=== PATIENT | female | born 1960 | race Caucasian/White ===

== ENCOUNTER 2020-08-14 07:56 | Outpatient (CLI) | payer OTHER, SELFPAY ==
--- NOTE | ~2020-08-14 | MM_ITS ---
EXAMINATION: MM screening rigo BI w mariana HISTORY: Screening mammogram TECHNIQUE: Craniocaudal and mediolateral oblique 3-D tomosynthesis images were obtained and synthetic 2-D images were generated. CAD analysis was submitted and interpreted. COMPARISON: No prior mammogram is available for comparison at this institution. BREAST PARENCHYMAL COMPOSITION: There are scattered areas of fibroglandular density.. FINDINGS: There is no evidence of suspicious mass, calcification, or architectural distortion to sugg est malignancy in either breast. There has been no suspicious interval change. IMPRESSION: 1. No mammographic evidence of malignancy. 2. Recommend routine screening mammography in one year. BI-RADS Category 1: Negative Reviewed, dictated and finalized at location A.
--- NOTE | ~2020-08-14 | US_ITS ---
US abdomen complete EXAMINATION: US Abdomen Complete INDICATION: Alcoholic cirrhosis PROCEDURE: Realtime High Resolution abdomen ultrasound. COMPARISON: No prior studies for comparison FINDINGS: Gallbladder within normal limits. No gallstones, pericholecystic fluid, gallbladder wall t hickening or biliary dilatation. Common bile duct measures 4.5 mm. Liver echotexture is heterogeneous with nodular liver surface, compatible with cirrhosis. Pancreas w ithin normal limits. Pancreatic tail is obscured by bowel gas. Spleen is enlarged measuring 13.7 cm . Renal echotexture is within normal limits bilaterally without hydronephrosis, contour deforming mas s or renal stone. Right kidney measures 9.1 cm. Left kidney measures 8.7 cm. Visualized aspects of the aorta and IVC are within normal limits. Portal vein is patent. No sonograph ic Monteiro's sign indicated by the technologist. IMPRESSION: 1: Cirrhosis with splenomegaly, compatible with portal hypertension. Reviewed, dictated and finalized at location B.
== END 2020-08-14 07:57 | disposition home or self-care (01) ==
LOC: CHSIMG 07:59
PROVIDERS: PCP Family Medicine; Visit Provider Family Medicine
DX: Z12.31 Encounter for screening mammogram for malignant neoplasm of breast (principal); K70.30 Alcoholic cirrhosis of liver without ascites
CPT/HCPCS: 76700; 77063; 77067

== ENCOUNTER 2020-11-27 11:16 | Outpatient (CLI) | payer OTHER, SELFPAY ==
[2020-11-28 18:11] LABS: SARS-CoV-2 RNA PCR Negative
== END 2020-11-27 11:17 | disposition home or self-care (01) ==
LOC: CHSLAB 11:18
PROVIDERS: PCP Family Medicine; Visit Provider Family Medicine
DX: Z01.818 Encounter for other preprocedural examination (principal); Z20.822 Contact with and (suspected) exposure to COVID-19
CPT/HCPCS: C9803; U0003; U0005

== ENCOUNTER 2021-01-20 15:33 | Outpatient (CLI) | payer OTHER, SELFPAY ==
[2021-01-20 16:19] LABS: Ammonia 37 umol/L (11-32); Bilirubin Direct 0.6 mg/dL (0-0.2); Bilirubin,Total 2.4 mg/dL (0.00-1.00); Uric Acid 7.2 mg/dL (2.6-6.0)
== END 2021-01-20 15:34 | disposition home or self-care (01) ==
LOC: CHSLAB 15:38
PROVIDERS: PCP Family Medicine; Visit Provider Family Medicine
DX: M79.672 Pain in left foot (principal); M79.671 Pain in right foot; K70.30 Alcoholic cirrhosis of liver without ascites; E80.6 Other disorders of bilirubin metabolism
CPT/HCPCS: 36415; 82140; 82247; 82248; 84550

== ENCOUNTER 2021-01-22 07:58 | Outpatient (CLI) | payer OTHER, SELFPAY ==
--- NOTE | ~2021-01-22 | XR_ITS ---
EXAMINATION: XR foot LT min 3V, XR foot RT min 3V DATE: 01/22/2021 08:25 INDICATION: Left foot pain 2 months post blunt trauma with heavy object falling on the first and seco nd metatarsals. 6 months of pain at the lateral right foot. TECHNIQUE: 1. Dorsoplantar, two oblique and lateral views of the left foot were obtained. 2. Dorsoplantar, two oblique and lateral views of the right foot were obtained. COMPARISON: None. FINDINGS: Alignment is normal at the bilateral feet. No fractures. Relatively symmetric minimal to mild polyart icular osteoarthritis at the bilateral first metatarsophalangeal joints and multiple bilateral tarsom etatarsal and interphalangeal joints. No erosions to suggest an inflammatory arthritis. Tiny radioden se foreign body near the level of the skin surface at the medial side of the plantar aspect of the di stal phalanx of the left great toe. Small right Achilles and plantar calcaneal spurs. Soft tissues ar e unremarkable. IMPRESSION: 1. No acute osseous abnormality at either foot. 2. Minimal to mild polyarticular osteoarthritis in the bilateral mid and forefeet. Reviewed, dictated and finalized at location A. IMPRESSION: 1. No acute osseous abnormality at either foot. 2. Minimal to mild polyarticular osteoarthritis in the bilateral mid and forefe et.
--- NOTE | ~2021-01-22 | US_ITS ---
US right upper quadrant INDICATION: Alcoholic cirrhosis PROCEDURE: Realtime right upper abdominal ultrasound. COMPARISON: Ultrasound dated 08/14/2020 FINDINGS: The pancreas is normal without focal mass or pancreatic ductal dilation. Liver echotexture is heterogeneous with slightly irregular liver surface, compatible with cirrhosis. No discrete mass identified. There is normal directional flow in the portal vein. The gallbladder is normal without stones, gallbladder wall thickening or pericholecystic fluid. Comm on bile duct measures 4.6 mm. No sonographic Monteiro's sign. IMPRESSION: 1: Heterogeneous liver echotexture with nodular surface, compatible with cirrhosis. Reviewed, dictated and finalized at location B. IMPRESSION: 1: Heterogeneous liver echotexture with nodular surface, compatible with cirrho sis.
== END 2021-01-22 07:59 | disposition home or self-care (01) ==
LOC: CHSIMG 07:59
PROVIDERS: PCP Family Medicine; Visit Provider Family Medicine
DX: M79.672 Pain in left foot (principal); K70.30 Alcoholic cirrhosis of liver without ascites
CPT/HCPCS: 73630; 76705

== ENCOUNTER 2021-04-08 12:53 | Outpatient (CLI) | payer OTHER, SELFPAY ==
--- NOTE | ~2021-04-08 | XR_ITS ---
EXAMINATION: XR foot LT min 3V EXAM DATE: 04/08/2021 13:24 INDICATION: pain in L heel x1mo, poss plantar fasciitis, no known injury. TECHNIQUE: Left foot dorsoplantar, lateral and oblique projections obtained and reviewed. Comparison is made to prior examination from 01/22/2021. FINDINGS: Left metatarsal bones unremarkable. There are no acute fractures or dislocations identifi ed. There is no subcutaneous gas to suggest fasciitis. The soft tissue is unremarkable. There are no radiopaque foreign bodies. IMPRESSION: 1. Unremarkable XR foot LT min 3V exam. Reviewed, dictated and finalized at location B.
== END 2021-04-08 12:54 | disposition home or self-care (01) ==
LOC: CHSIMG 12:55
PROVIDERS: PCP Family Medicine; Visit Provider Family Medicine
DX: M79.672 Pain in left foot (principal)
CPT/HCPCS: 73630

== ENCOUNTER 2021-06-04 10:12 | Outpatient (CLI) | payer OTHER, SELFPAY ==
[2021-06-04 10:26] LABS: Hematocrit 38.5 % (35.0-49.0); Hemoglobin 13.3 g/dL (12.0-15.0); Mean Corpuscular HGB Conc 34.5 g/dL (32.0-36.0); Mean Corpuscular Volume 95.5 fL (78.0-102.0); Mean Platelet Volume 9.8 fl (9.2-11.8); Platelet Count Result 60 K/mm3 (150-420); Red Blood Count 4.03 M/mm3 (4.20-5.40); Red Cell Distribution Width 13.2 % (11.6-14.4); White Blood Count 3.9 K/mm3 (4.8-10.8)
[2021-06-04 10:53] LABS: Band Neutrophils Percent 1 % (0-6); Eosinophils Absolute Manual 0.39 K/mm3 (0.02-0.5); Eosinophils Percent Manual 10 % (1-6); Lymphocytes Absolute Manual 0.78 K/mm3 (1.1-4.5); Lymphocytes Percent Manual 20 % (18-44); Monocytes Absolute Manual 0.27 K/mm3 (0.1-0.90); Monocytes Percent Manual 7 % (3-9); Neutrophils Absolute Manual 2.45 K/mm3 (1.7-7.2); Neutrophils Percent Manual 62 % (46-73); Platelet Estimate Decreased (Adequate); Total Cells Counted 100
[2021-06-04 13:56] LABS: Alanine Aminotransferase 38 U/L (14-59); Albumin Level 3.5 g/dL (3.4-5.0); Alkaline Phosphatase 101 U/L (46-116); Anion Gap 10 mmol/L (8-16); Aspartate Amino Transferase 33 U/L (15-37); Bilirubin,Total 1.4 mg/dL (0.00-1.00); Blood Urea Nitrogen 25 mg/dL (7-18); Calcium 9.1 mg/dL (8.5-10.1); Carbon Dioxide 25 mmol/L (21-32); Chloride 108 mmol/L (98-108); Cholesterol 178 mg/dL (0-200); Estimated Glomerular Filt Rate 48; Glucose 100 mg/dL (70-99); HDL Direct 47 mg/dL (40-60); LDL Cholesterol Calculated 89 mg/dL (<130); Osmolality Calculated 300 mOsm/kg (285-295); Potassium 4.3 mmol/L (3.5-5.1); Sodium 143 mmol/L (136-145); Thyroid Stimulating Hormone 0.24 uIU/mL (0.36-3.74); Total Protein 6.3 g/dL (6.4-8.2); Triglycerides 210 mg/dL (0-150); Uric Acid 6.3 mg/dL (2.6-6.0)
== END 2021-06-04 10:13 | disposition home or self-care (01) ==
LOC: CHSLAB 10:15
PROVIDERS: PCP Nurse Practitioner Family; Visit Provider Nurse Practitioner Family
DX: E03.9 Hypothyroidism, unspecified (principal); M10.9 Gout, unspecified; I10 Essential (primary) hypertension
CPT/HCPCS: 36415; 80053; 80061; 84443; 84550; 85025

== ENCOUNTER 2021-06-15 15:25 | Outpatient (RCR) | payer OTHER, SELFPAY ==
--- NOTE | 2021-06-15 17:06 | PTOPEVAL ---
Thank you for referring Meli Rosas to [facility].? The patient is scheduled to be seen for therapy? ____x/week for ___ weeks. Please review, sign, date and return this plan of care FABIO. I agree with and certify that the following plan of care is medically necessary. Referring Physician Date Admitting Provider: Attending Provider: Hardeep Williamson, DPM Referring Provider: *PT Outpatient Evaluation Start: 06/15/21 15:38 Freq: Status: Active Protocol: Document 06/15/21 15:38 ACR (Rec: 06/15/21 17:06 ACR [id number]) Therapy Assessment Status Assessment Status Assessment Status Evaluation Evaluation Information Problem Diagnosis B plantar facisitis Onset 06/09/21 Subjective Information Patient states she has Gout in Query Text:As Reported By Patient/ the R foot and plantar Family fascitis on the L. She states she got an x-ray of it and was diagnosed with this. Patient states that standing, navigating steps, dancing, balance is off, walking are all difficult. Patient is unable to camp and fish due to the pain. The patient states that the R foot feels like a grabbing sensation like her bone is going to come out of the skin. Patient states that the L foot feels like it is burning and cannot stand or get out of bed without her foot being in pain. Patient states her goal for therapy is to walk better. Prior Level of Function Activity Level (Last 3 Months) Occupation disabled Hand Dominance Right Activity of Daily Living Ability Independent Indoor/Home Mobility Independent Community Mobility Independent Stairs Ability Independent Functional Cognition (Planning, Shopping Independent , Taking Medications) Cooking Yes Cleaning Yes Laundry Yes Shopping Yes Driving Yes Pain Assessment Timing of Pain Assessment Timing of Pain Assessment Assessment Pain Scale Pain Scale Used Numeric (1 - 10) Self Report Pain Assessment Left Foot/Feet Reported Pain Level 0 Greatest Pain Intensity 5 Right Foot/Feet Re
--- NOTE | 2021-08-14 07:42 | PCPTNOTE ---
Patient is a 61 year old female that participated in 11 visits for B plantar fascitis. The patient called before her last visit saying she got surgery and had pins in her foot, but it was unknown before then that she was getting surgery. The patient will be discharged from skilled therapy at this time. Thank you, BRANDI BellT
== END 2021-07-13 10:20 | disposition home or self-care (01) ==
LOC: CHSPT 15:25
PROVIDERS: Visit Provider Podiatrist Foot & Ankle Surgery
DX: M72.2 Plantar fascial fibromatosis (principal); M76.72 Peroneal tendinitis, left leg
CPT/HCPCS: 97110; 97140; 97161; 97530

== ENCOUNTER 2021-09-11 11:02 | Outpatient (CLI) | payer OTHER, SELFPAY ==
[2021-09-11 11:47] LABS: Thyroid Stimulating Hormone 0.11 uIU/mL (0.36-3.74)
== END 2021-09-11 11:03 | disposition home or self-care (01) ==
LOC: CHSLAB 11:06
PROVIDERS: PCP Nurse Practitioner Family; Visit Provider Nurse Practitioner Family
DX: E03.9 Hypothyroidism, unspecified (principal)
CPT/HCPCS: 36415; 84443

== ENCOUNTER 2021-11-17 13:40 | Outpatient (CLI) | payer OTHER, SELFPAY ==
[2021-11-17 14:32] LABS: Thyroid Stimulating Hormone 0.97 uIU/mL (0.36-3.74)
== END 2021-11-17 13:41 | disposition home or self-care (01) ==
LOC: CHSLAB 13:42
PROVIDERS: PCP Nurse Practitioner Family; Visit Provider Nurse Practitioner Family
DX: E03.9 Hypothyroidism, unspecified (principal)
CPT/HCPCS: 36415; 84443

== ENCOUNTER 2022-01-05 12:03 | Outpatient (CLI) | payer OTHER, SELFPAY ==
--- NOTE | ~2022-01-05 | XR_ITS ---
EXAMINATION: XR knee LT 3V DATE: 01/05/2022 12:26 INDICATION: Left knee pain. TECHNIQUE: 3 views of left knee were obtained. COMPARISON: Left femur radiographs 11/03/2018 FINDINGS: Bone alignment is normal. No fracture. There is mild tricompartmental osteoarthritis charac terized by tiny osteophytes. No joint space narrowing. There is a small knee joint effusion. IMPRESSION: 1. Mild left knee osteoarthritis. 2. Small left knee joint effusion. Reviewed, dictated and finalized at location A.
== END 2022-01-05 12:04 | disposition home or self-care (01) ==
LOC: CHSIMG 12:06
PROVIDERS: PCP Nurse Practitioner Family; Visit Provider Nurse Practitioner Family
DX: M25.562 Pain in left knee (principal)
CPT/HCPCS: 73562

== ENCOUNTER 2022-01-11 09:40 | Outpatient (CLI) | payer OTHER, SELFPAY ==
--- NOTE | ~2022-01-11 | XR_ITS ---
EXAMINATION: XR foot RT min 3V EXAM DATE: 01/11/2022 10:25 INDICATION: Bilat Feet Pain, hx gout and arthritis in RT. TECHNIQUE: Right foot dorsoplantar, lateral standing and oblique projections obtained and reviewed. Comparison is made to prior examination from 01/22/2021. FINDINGS: Right metatarsal bones unremarkable. Tiny posterior and inferior calcaneal spurs. There i s minimal polyarticular primary osteoarthritis. There are no bony erosions identified. There are no acute fractures or dislocations identified. There is no subcutaneous gas. The soft tissue is unrema rkable. There are no radiopaque foreign bodies. There is no significant interval change. IMPRESSION: 1. Minimal polyarticular right foot osteoarthritis. 2. Tiny calcaneal spurs. Reviewed, dictated and finalized at location G.
--- NOTE | ~2022-01-11 | XR_ITS ---
EXAMINATION: XR foot LT min 3V EXAM DATE: 01/11/2022 10:26 INDICATION: Bilat Feet Pain x1yr. LT worse than RT, LT hx plantar fasc. TECHNIQUE: Left foot dorsoplantar, lateral standing and oblique projections obtained and reviewed. Co mparison is made to prior examination from 01/22/2021. FINDINGS: Left metatarsal bones unremarkable. Minimal polyarticular primary osteoarthritis. There are no bony erosions identified. There are no acute fractures or dislocations identified. There is n o subcutaneous gas. The soft tissue is unremarkable. Tiny metallic foreign body along the great to e nailbed. There is no significant interval change. Tiny calcaneal spurs. IMPRESSION: 1. Tiny calcaneal spurs. 2. Minimal polyarticular left foot osteoarthritis. Reviewed, dictated and finalized at location G.
== END 2022-01-11 09:41 | disposition home or self-care (01) ==
LOC: CHSIMG 09:42
PROVIDERS: PCP Nurse Practitioner Family; Visit Provider Podiatrist Foot & Ankle Surgery
DX: M79.672 Pain in left foot (principal); M79.671 Pain in right foot
CPT/HCPCS: 73630

== ENCOUNTER 2022-01-13 09:11 | Outpatient (RCR) | payer OTHER, SELFPAY ==
--- NOTE | 2022-01-13 13:48 | PTOPEVAL ---
Thank you for referring Meli Wagner to [facility].? The patient is scheduled to be seen for therapy? ____x/week for ___ weeks. Please review, sign, date and return this plan of care FABIO. I agree with and certify that the following plan of care is medically necessary. Referring Physician Date Admitting Provider: Attending Provider: Jackie Sanches NP Referring Provider: *PT Outpatient Evaluation Start: 01/13/22 09:25 Freq: Status: Active Protocol: Document 01/13/22 09:25 [facility] (Rec: 01/13/22 12:13 [facility] [id number]) Therapy Assessment Status Assessment Status Assessment Status Evaluation Evaluation Information Problem Diagnosis L knee pain, bilateral plantar fascitis Onset 01/05/22 Additional Evaluation Detail LEFS = 83% functionally declined Subjective Information patient reports she is having Query Text:As Reported By Patient/ pain in the L knee, and pain Family in her bilateral feet. she reports she is not sure which pain is worse this date. she reports her knee is driving her nuts having to go up and down 22 steps 1x a week. she reports her L knee is also inncreased in pain getting out of bed, standing, squatting, bathing, etc. she reports the bilateral feet have been bothering her for more than 1 year. she reports she had a shot in the L foot. she reports she has pain in the feet daily, but reports the L knee may be worse today. she reports increased pain in the feet with getting up, turning too fast, and has fallen. she reports she has feeling of the L LE pain up and down the leg , and numbness/falling asleep of the L LE. Prior Level of Function Comments Additional Prior Level of Function patient reports her feet have Comments been in pain for nearly a year or more. she reports she used to be able to go up and down steps without issues. Pain Assessment Timing of Pain Assessment Timing of Pain Assessment Assessment Pain Scale Pain Scale Used
--- NOTE | 2022-02-11 07:47 | PTOPEVAL ---
Thank you for referring Meli Wagner to [facility].? The patient is scheduled to be seen for therapy? ____x/week for ___ weeks. Please review, sign, date and return this plan of care FABIO. I agree with and certify that the following plan of care is medically necessary. Referring Physician Date Admitting Provider: Attending Provider: Jackie Sanches NP Referring Provider: *PT Outpatient Evaluation Start: 01/13/22 09:25 Freq: Status: Active Protocol: Document 02/09/22 13:00 [facility] (Rec: 02/11/22 07:47 [facility] [email or web address]) Therapy Assessment Status Assessment Status Assessment Status Discharge Evaluation Information Problem Diagnosis L knee pain, bilateral plantar fascitis Subjective Information patient reports she feels Query Text:As Reported By Patient/ better in the knees, but Family reports pain still increased at times with steps, and is really bad still with getting into and out of the bathtub. she reports she has a new order from a different MD to evaluate her bilateral plantar fascitis. Pain Assessment Timing of Pain Assessment Timing of Pain Assessment Assessment Pain Scale Pain Scale Used Numeric (1 - 10) Self Report Pain Assessment Bilateral Foot/Feet Reported Pain Level 0 Greatest Pain Intensity 4 Left Knee(s) Reported Pain Level 4 Greatest Pain Intensity 6 Pain Score Pain Score 0,4: Self Report Interventions Used Interventions Used By Clinicians Activity or ADL's,Education, Exercise,Manual Therapy Techniques,Ultrasound Lower Extremity Range of Motion Knee Range of Motion Left Knee Flexion Range of Motion - Active 114 Knee Extension Range of Motion - Active -2 Query Text: Lower Extremity Muscle Strength Testing Hip Strength Left Hip Flexion Strength 4 Good Right Hip Flexion Strength 4 Good Knee Strength Left Knee Flexion Strength 5 Normal Knee Extension Strength 4+ Good + Right Knee Flexion Strength 5 Normal Knee Extension Strength 5 Normal Gait Assessment Gait Pattern Assessment Other Gait Observations patient ambulates with improved stance time and weight bearing on the L LE, but continued mild trunk lean to the L. General Exercise General Exercises Exercise Description see patient note by
== END 2022-02-09 08:58 | disposition home or self-care (01) ==
LOC: CHSPT 09:11
PROVIDERS: PCP Nurse Practitioner Family; Visit Provider Nurse Practitioner Family
DX: M72.2 Plantar fascial fibromatosis (principal); M25.562 Pain in left knee
CPT/HCPCS: 97014; 97035; 97110; 97112; 97140; 97162; G0283

== ENCOUNTER 2022-02-11 14:51 | Outpatient (RCR) | payer OTHER, SELFPAY ==
--- NOTE | 2022-03-02 10:07 | PTOPEVAL ---
Thank you for referring Meli Wagner to [facility].? The patient is scheduled to be seen for therapy? ____x/week for ___ weeks. Please review, sign, date and return this plan of care FABIO. I agree with and certify that the following plan of care is medically necessary. Referring Physician Date Admitting Provider: Attending Provider: Hardeep Williamson, DPM Referring Provider: *PT Outpatient Evaluation Start: 02/11/22 15:21 Freq: Status: Active Protocol: Document 02/11/22 15:20 [facility] (Rec: 02/11/22 16:04 [facility] [email or web address]) Therapy Assessment Status Assessment Status Assessment Status Evaluation Evaluation Information Problem Diagnosis bilateral plantar fascitis Onset 02/08/22 Subjective Information patient reports she has just Query Text:As Reported By Patient/ gotten done with therapy for Family the L knee and is now coming to therapy for the bilateral feet. she reports she has been having pain in the bilateral feet for over a year. she reports [facility] had 5-6 injections to the bilateral feet. she reports she has increased pain in the feet when initially getting up from sitting or laying down. she reports she also has increased pain with standing and walking. she reports she is unable to run. Prior Level of Function Comments Additional Prior Level of Function worsening symptoms for over a Comments year. short bouts of relief from injections. Pain Assessment Timing of Pain Assessment Timing of Pain Assessment Assessment Pain Scale Pain Scale Used Numeric (1 - 10) Self Report Pain Assessment Bilateral Foot/Feet Reported Pain Level 4 Pain Frequency Acute,Chronic,Continuous Pain Score Pain Score 4: Self Report Interventions Used Interventions Used By Clinicians Activity or ADL's,Education, Exercise,Medication Lower Extremity Range of Motion Ankle/Foot Range of Motion Left Ankle Dorsiflexion With Knee Extension -3 Range of Motion - Active Ankle Dorsiflexion With Knee Flexed 3 Range of Motion - Active Ankle Plantarflexion Range of Motion - 40 Active Query Text: Right Ankle Dorsiflexion With Knee Extension 0 Range of Motion - Active Ankle Dorsiflexion With Knee Flexed
--- NOTE | 2022-03-23 15:01 | PTOPEVAL ---
Thank you for referring Meli Wagner to [facility].? The patient is scheduled to be seen for therapy? ____x/week for ___ weeks. Please review, sign, date and return this plan of care FABIO. I agree with and certify that the following plan of care is medically necessary. Referring Physician Date Admitting Provider: Attending Provider: Hardeep Williamson, DPM Referring Provider: *PT Outpatient Evaluation Start: 02/11/22 15:21 Freq: Status: Active Protocol: Document 03/23/22 13:48 [facility] (Rec: 03/23/22 14:33 [facility] [email or web address]) Therapy Assessment Status Assessment Status Assessment Status Discharge Evaluation Information Problem Diagnosis bilateral plantar fascitis Onset 02/08/22 Subjective Information Pt reports that her pain only Query Text:As Reported By Patient/ comes on when she gets up from Family sitting down. She states that her feet have felt great since the first time she came. She states that her doctor would like to cut a band on the bottom of her feet to help decrease her pain further. She states that her balance still feels a bit off though. Pain Assessment Timing of Pain Assessment Timing of Pain Assessment Pre-Treatment Pain Scale Pain Scale Used Numeric (1 - 10) Self Report Pain Assessment Bilateral Foot/Feet Reported Pain Level 2 Pain Description Aching,Dull Pain Score Pain Score 2: Self Report Interventions Used Interventions Used By Clinicians Activity or ADL's,Education, Exercise Pain Relief Interventions Used By Medication Patient Lower Extremity Range of Motion Ankle/Foot Range of Motion Left Ankle Dorsiflexion With Knee Extension -3 Range of Motion - Active Ankle Dorsiflexion With Knee Flexed 12 Range of Motion - Active Ankle Plantarflexion Range of Motion - 40 Active Query Text: Right Ankle Dorsiflexion With Knee Extension 0 Range of Motion - Active Ankle Dorsiflexion With Knee Flexed 5 Range of Motion - Active Ankle Plantarflexion Range of Motion - 45 Active Query Text: Lower Extremity Muscle Strength Testing Ankle Strength Bilateral Ankle Dorsiflexion Strength 5 Normal Ankle Plantarflexion Strength 4+ Good + Muscle Length Testing Muscle Length Testing Gastrocnemius Length (R) Moderate Tightness,(L) Moderate Tightness Palpat
== END 2022-03-23 15:44 | disposition home or self-care (01) ==
LOC: CHSPT 14:51
PROVIDERS: Visit Provider Podiatrist Foot & Ankle Surgery
DX: M72.2 Plantar fascial fibromatosis (principal)
CPT/HCPCS: 97110; 97140; 97161

== ENCOUNTER 2022-03-02 11:12 | Outpatient (CLI) | payer OTHER, SELFPAY ==
--- NOTE | ~2022-03-02 | MR_ITS ---
EXAMINATION: MR knee LT wo con DATE: 03/02/2022 11:55 INDICATION: Left knee pain/instability. TECHNIQUE: Magnetic resonance imaging (MRI) of the left knee was performed without intravenous contra st. Sequences included axial PD-weighted FS FSE, coronal PD-weighted FSE and PD-weighted FS FSE, sagi ttal PD-weighted FSE, and sagittal T2-weighted FS FSE. COMPARISON: Left knee x-ray 01/05/2022 FINDINGS: Medial compartment: Obliquely oriented tear through the posterior horn, medial meniscus. Severe diffuse cartilage loss. M ild osteophytosis. Tibial plateau subchondral sclerosis. Lateral compartment: Mild diffuse cartilage loss. Intact meniscus. Patellofemoral compartment: Intact cartilage. Retinacula and extensor mechanism intact. Ligaments and tendons: Intramuscular cyst at the muscle tendinous junction of the popliteus muscle. ACL, MCL, PCL, and LCL a re intact. Medial tendons, biceps femoris tendon, and IT band are intact. Fluid: Small volume joint fluid. Osseous/other: Trace marrow edema in the lateral aspect of the medial femoral condyle. IMPRESSION: 1. Oblique tear, posterior horn, medial meniscus. 2. Musculotendinous junction tear of the popliteus muscle. 3. Osteoarthritic changes, moderate in the medial compartment. 4. Small left knee joint effusion. Reviewed, dictated and finalized at location K.
== END 2022-03-02 11:13 | disposition home or self-care (01) ==
LOC: CHSIMG 11:14
PROVIDERS: PCP Nurse Practitioner Family; Visit Provider Nurse Practitioner Family
DX: M17.12 Unilateral primary osteoarthritis, left knee (principal)
CPT/HCPCS: 73721

== ENCOUNTER 2022-06-03 09:40 | Outpatient (CLI) | payer OTHER, SELFPAY ==
--- NOTE | ~2022-06-03 | XR_ITS ---
XR chest 2V DATE: 06/03/2022 09:59 INDICATION: Pneumonia TECHNIQUE: PA and lateral views COMPARISON: 11/02/2019 PA and lateral chest FINDINGS: Normal heart size. There is mild infiltrate in the lateral right mid lung at the anterior segment, along the upper aspec t of the minor fissure. There is patchy infiltrate in the left lung base, left lower lobe. No pleural effusion or pulmonary vascular congestion or pneumothorax is detected. No hilar or mediast inal enlargement. Diffuse osteopenia. IMPRESSION: Mild increase in the right upper lobe and left basilar lower lobe infiltrates Reviewed, dictated and finalized at location B. IMPRESSION: Mild increase in the right upper lobe and left basilar lower lobe i nfiltrates
[2022-06-03 09:51] LABS: Hematocrit 36.3 % (35.0-49.0); Hemoglobin 12.5 g/dL (12.0-15.0); Immature Platelet Fraction Pct 1.9 % (1.0-7.0); Mean Corpuscular HGB Conc 34.4 g/dL (32.0-36.0); Mean Corpuscular Hemoglobin 32.7 pg (27.0-31.0); Mean Platelet Volume 9.3 fl (9.2-11.8); Platelet Count Result 135 K/mm3 (150-420); Red Blood Count 3.82 M/mm3 (4.20-5.40); Red Cell Distribution Width 13.1 % (11.6-14.4); White Blood Count 9.2 K/mm3 (4.8-10.8)
[2022-06-03 10:32] LABS: Alanine Aminotransferase 46 U/L (14-59); Albumin Level 3.1 g/dL (3.4-5.0); Alkaline Phosphatase 112 U/L (46-116); Anion Gap 6 mmol/L (8-16); Aspartate Amino Transferase 49 U/L (15-37); Bilirubin,Total 1.7 mg/dL (0.00-1.00); Blood Urea Nitrogen 16 mg/dL (7-18); Calcium 8.4 mg/dL (8.5-10.1); Carbon Dioxide 29 mmol/L (21-32); Chloride 103 mmol/L (98-108); Estimated Glomerular Filt Rate > 60; Glucose 130 mg/dL (70-99); Osmolality Calculated 289 mOsm/kg (285-295); Potassium 4.5 mmol/L (3.5-5.1); Sodium 138 mmol/L (136-145); Total Protein 6.4 g/dL (6.4-8.2)
== END 2022-06-03 09:41 | disposition home or self-care (01) ==
LOC: CHSLAB 09:42
PROVIDERS: PCP Family Medicine; Visit Provider Family Medicine
DX: J18.9 Pneumonia, unspecified organism (principal)
CPT/HCPCS: 36415; 71046; 80053; 85027; 85055

== ENCOUNTER 2022-06-07 14:32 | Outpatient (CLI) | payer OTHER, SELFPAY ==
--- NOTE | ~2022-06-07 | US_ITS ---
US abdomen limited INDICATION: Cirrhosis PROCEDURE: Realtime right upper abdominal ultrasound. COMPARISON: No prior studies for comparison. FINDINGS: The pancreas is normal without focal mass or pancreatic ductal dilation. Liver echotexture is increased, consistent with hepatic steatosis. There is normal directional flow in the portal vei n. The gallbladder is normal without stones, gallbladder wall thickening or pericholecystic fluid. Comm on bile duct measures 3 mm. No sonographic Monteiro's sign. IMPRESSION: 1: Hepatic steatosis. Reviewed, dictated and finalized at location B. IMPRESSION: 1: Hepatic steatosis.
== END 2022-06-07 14:33 | disposition home or self-care (01) ==
LOC: CHSIMG 14:34
PROVIDERS: PCP Nurse Practitioner Family; Visit Provider Family Medicine
DX: B18.2 Chronic viral hepatitis C (principal)
CPT/HCPCS: 76705

== ENCOUNTER 2022-08-04 16:42 | Emergency (ER) | payer OTHER, SELFPAY ==
--- NOTE | ~2022-08-04 | XR_ITS ---
EXAMINATION: XR knee RT 3V DATE: 08/04/2022 17:22 INDICATION: Right knee pain TECHNIQUE: Three views of the right knee were obtained. COMPARISON: None. FINDINGS: Alignment is normal. No fracture or osteochondral lesion. There is mild tricompartmental os teoarthritis characterized by tiny marginal osteophytes. There is a small knee joint effusion. Soft t issues are unremarkable. IMPRESSION: 1. Mild osteoarthritis. Reviewed, dictated and finalized at location A. IMPRESSION: 1. Mild osteoarthritis.
--- NOTE | 2022-08-04 16:44 | ED.LOWEXIN ---
HPI - Extremity Injury (Lower) General Chief Complaint: Extremity Injury, Lower Stated Complaint: r knee pain Time Seen by Provider: 08/04/22 16:44 Source: patient Mode of arrival: ambulatory History of Present Illness HPI Narrative: 62-year-old female with a history of hypertension, hep C, anxiety/depression, COPD, hypothyroidism, gout, left knee osteoarthritis with meniscus tear status post surgery 2 months ago presents to the ER with -- right knee pain with swelling. Decreased range of motion. -- Recurrent falls as her right lower extremities not able to support her. No other injuries noted. Onset (ago): week(s) Injury: Right: knee Relieving factors: immobilization Exacerbating factors: movement Other symptoms: none Related Data Allergies Allergy/AdvReac Type Severity Reaction Status Date / Time No Known Allergies Allergy Verified 08/04/22 16:57 Review of Systems Review of Systems: All systems reviewed & are unremarkable except as noted in HPI and below Constitutional: Constitutional: Reports as per HPI and Reports no additional constitutional complaints Eyes: Eyes: Reports as per HPI and Reports no additional eye complaints ENT: Reports system reviewed and no additional complaints, except as documented and Reports as per HPI Cardiovascular: Cardiovascular: Reports as per HPI and Reports no additional cardiovascular complaints Respiratory: Respiratory: Reports as per HPI and Reports no additional respiratory complaints Gastrointestinal: Gastrointestinal: Reports as per HPI and Reports no additional gastrointestinal complaints Genitourinary: Genitourinary: Reports no additional female genitourinary complaints and Reports as per HPI Musculoskeletal: Musculoskeletal: Reports no additional musculoskeletal complaints and Reports as per HPI Comments: Right knee pain with swelling. Decreased range of motion. Integumentary/Breasts: Skin/Breast: Reports system reviewed and no additional complaints, except as docu Neurologic: Reports system reviewed and no additional complaints, except as documented and Reports as per HPI Psychiatric: Psychiatric: Reports no additional psychiatric complaints and Reports as per HPI Endocrine: Endocrine: Reports no additional endocrine complaints and Reports as per HPI Hematologic/Lymphatic: Hematologic/Lymphatic: Reports no additional hematologic/lymphatic complaints and Reports as per HPI Allergic/Immunologic: Allergic/Immunologic: Reports no additional allergic/immunologic complaints and Reports as per HPI PMFSH Past Medical History Medical History Hand fracture, left Pneumonia Social History Social History Smoking packs per day: 0.5 Smoking cigarettes per day: 10.0 Years smoked: 3 Smoking pack-years: 1.50 Smoking status: Current every day smoker Alcohol intake: current Alcohol use details: social Substance use: current Substance use type: marijuana and methamphetamine Additional living arrangements comments: Gender identity (if verbalized by the patient): Female Exam Const: General: no acute distress Nutritional Appearance: obese Orientation/consciousness: patient oriented x3 Limitations: no limitations HENMT: Head: normal to inspection Ears: external ears normal Face/Nose/Sinus: Normal external nose present Face and sinus: normal facial exam Mouth: Yes Normal oral and palatal mucosa present Throat: posterior oropharynx normal Eyes: Conjunctivae: conjunctivae normal Pupils: Equal, round and reactive pupils present Direct Ophthalmoscopy: no photophobia Neck: Neck: normal visual inspection, no lymphadenopathy and no meningeal signs Chest: Chest palpation & inspection: normal inspection of the chest Resp: Effort & Inspection: normal respiratory effort Auscultation: clear to auscultation bilaterally Cardio: Rate: reg
[2022-08-04 16:50] VITALS: BP 94/83; PULSE 78; RESP 20; TEMP 35.9; O2SAT 98
[2022-08-04] MEDS: KETOROLAC 30 MG/ML VIAL (*BKC) IM (17:02)
[2022-08-04] MEDS: methylPREDNISolone SOD SUCC 125 MG VIAL 60 MG IM (18:46)
[2022-08-04 18:50] VITALS: BP 98/60; PULSE 80; RESP 18; O2SAT 98
== END 2022-08-04 18:50 | disposition home or self-care (01) ==
PROVIDERS: Emergency Provider Internal Medicine Critical Care Medicine; PCP Family Medicine
DX: M17.11 Unilateral primary osteoarthritis, right knee (principal); M25.561 Pain in right knee
CPT/HCPCS: 73562; 96372; 99284; J1885; J2930

== ENCOUNTER 2022-09-29 14:30 | Emergency (ER) | payer OTHER, SELFPAY ==
--- NOTE | ~2022-09-29 | XR_ITS ---
EXAMINATION: XR hand RT min 3V DATE: 09/29/2022 14:55 INDICATION: Defensive wound to the distal fifth metacarpal of the right hand TECHNIQUE: Posteroanterior, oblique and lateral views of the right hand were obtained. COMPARISON: None. FINDINGS: Bone alignment is normal. No fracture. Polyarticular osteoarthritis, moderate severity at the third p roximal interphalangeal and fifth distal interphalangeal joints and mild at the wrist, triscaphe and many of the remaining interphalangeal joints. Soft tissue swelling about the ulnar side of the right hand. Additional mild soft tissue swelling at the second and third digits most prominent about the th e proximal interphalangeal joints. No radiopaque foreign bodies. IMPRESSION: 1. Mild to moderate polyarticular osteoarthritis at the right hand. No acute abnormality or radiopaqu e foreign bodies. Reviewed, dictated and finalized at location A. ASSAYER IMPRESSION: 1. Mild to moderate polyarticular osteoarthritis at the right hand. No acute ab normality or radiopaque foreign bodies.
[2022-09-29 14:30] VITALS: BP 161/88; PULSE 102; RESP 20; TEMP 36.7; O2SAT 99
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
--- NOTE | 2022-09-29 15:15 | PC.NURSE ---
ICE PACKS WERE APPLIED TO RT HAND AND RT KNEE
--- NOTE | 2022-09-29 15:38 | PC.NURSE ---
PT IS SITTING ON STRETCHER AWAITING RESULTS AT THIS TIME. SISTER HAS LEFT, PHONE NUMBER LEFT AT BEDSIDE. NAD NOTED. WILL CONTINUE TO MONITOR.
--- NOTE | 2022-09-29 15:57 | PC.NURSE ---
NIECE NOTIFIED FOR TRANSPORT HOME
[2022-09-29 16:05] VITALS: BP 141/97; PULSE 78; RESP 18; O2SAT 96
--- NOTE | 2022-09-29 16:07 | PC.NURSE ---
[employer] INFORMATION PROVIDED TO PT, FAMILY TO TRANSPORT PT WAS ABLE TO STAND AND PIVOT WITHOUT DIFFICULTY. PURPLE BRUISING IS NOW NOTICED ON LEFT LATERAL CALF.
== END 2022-09-29 16:05 | disposition home or self-care (01) ==
PROVIDERS: Emergency Provider Emergency Medicine; PCP Family Medicine
DX: S60.221A Contusion of right hand, initial encounter (principal); Y04.8XXA Assault by other bodily force, initial encounter
CPT/HCPCS: 73130; 99283

== ENCOUNTER 2023-07-01 10:31 | Outpatient (CLI) | payer MEDICARE, SELFPAY ==
--- NOTE | ~2023-07-01 | XR_ITS ---
Right foot Technique: AP, oblique, and lateral views were obtained. Clinical History: Swelling, pain Findings: No acute fracture or dislocation is seen. Osseous alignment is anatomic. Joint spaces are p reserved without erosive or degenerative change. Soft tissues are unremarkable. Impression: Unremarkable right foot radiographs. Reviewed, dictated and finalized at [facility]. Impression: Unremarkable right foot radiographs.
--- NOTE | ~2023-07-01 | XR_ITS ---
Left foot Technique: AP, oblique, and lateral views were obtained. Clinical History: Pain and swelling Findings: No acute fracture or dislocation is seen. Osseous alignment is anatomic. Joint spaces are p reserved without erosive or degenerative change. Soft tissues are unremarkable. Impression: Unremarkable left foot radiographs. Reviewed, dictated and finalized at [facility]. Impression: Unremarkable left foot radiographs.
== END 2023-07-01 10:32 | disposition home or self-care (01) ==
LOC: CHSIMG 10:33
PROVIDERS: PCP Family Medicine; Visit Provider Family Medicine
DX: M79.672 Pain in left foot (principal); M79.671 Pain in right foot
CPT/HCPCS: 73630

== ENCOUNTER 2023-08-06 13:13 | Emergency (ER) | payer MEDICARE, SELFPAY ==
--- NOTE | ~2023-08-06 | CT_ITS ---
EXAMINATION: CT orbit BI w con, CT brain wo/w con DATE: 08/06/2023 15:17 INDICATION: Visual hallucinations and dizziness TECHNIQUE: 1. Computed tomography (CT) of the head was performed without and with 100 mL Omnipaque-350 intraveno us contrast. Sagittal and coronal reconstructions were performed. Automated exposure control and iter ative reconstruction technique were employed. 2. CT of the orbits was performed without and with 100 mL Omnipaque 350 intravenous contrast utilizin g the same contrast bolus. Sagittal and coronal reconstructions were employed. Automated exposure con trol and iterative reconstruction technique were employed. The combined dose-length product for both studies was thousand 555.53 mGy-cm. COMPARISON: None FINDINGS: Head CT: No acute intracranial hemorrhage, acute infarction or abnormal extra axial fluid collection. There is mild scattered white matter hypoattenuation consistent with chronic small vessel ischemic disease. Ventricles are normal and symmetric. Basal cisterns including the suprasellar cistern are patent. No mass/mass effect. No abnormally enhancing brain lesions identified. The mastoid air cells and middle ear cavities are clear. The right mastoid is hyperpneumatized. Cerebral vasculature appears normal an d symmetric. Orbit CT: Bilateral orbits appear normal with intact appearing globes. No inflammatory fat stranding or masses identified at the bilateral orbits. Mild mucosal thickening the right sphenoid and bilateral ethmoid sinuses. IMPRESSION: 1. Mild scattered nonspecific white matter hypoattenuation consistent with chronic small vessel ische favian disease. No other acute intracranial process or abnormally enhancing brain lesions. 2. Normal orbits. Reviewed, dictated and finalized at location A. IMPRESSION: 1. Mild scattered nonspecific white matter hypoattenuation consistent with dry kiln feeder srinivas small vessel ischemic disease. No other acute intracranial process or abnor pool enhancing brain lesions. 2. Normal orbits.
[2023-08-06 13:13] VITALS: BP 132/79; PULSE 104; RESP 20; TEMP 36.6; O2SAT 97
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
[2023-08-06 14:01] LABS: Hematocrit 34.5 % (35.0-42.0); Hemoglobin 12.3 g/dL (11.7-13.8); Immature Platelet Fraction Pct 1.8 % (1.0-7.0); Mean Corpuscular HGB Conc 35.7 g/dL (32.0-36.0); Mean Corpuscular Volume 92.5 fL (78.0-102.0); Mean Platelet Volume 9.5 fl (9.2-11.8); Platelet Count Result 85 K/mm3 (150-420); Red Blood Count 3.73 M/mm3 (4.20-5.40); Red Cell Distribution Width 13.7 % (11.6-14.4); White Blood Count 6.8 K/mm3 (4.8-10.8)
[2023-08-06 14:25] LABS: Alanine Aminotransferase 26 U/L (14-59); Albumin Level 3.4 g/dL (3.4-5.0); Alkaline Phosphatase 97 U/L (46-116); Anion Gap 9 mmol/L (8-16); Aspartate Amino Transferase 37 U/L (15-37); Bilirubin,Total 3.7 mg/dL (0.00-1.00); Blood Urea Nitrogen 15 mg/dL (7-18); Calcium 8.9 mg/dL (8.5-10.1); Carbon Dioxide 30 mmol/L (21-32); Chloride 107 mmol/L (98-108); Estimated CRCL calculation 54 ml/min; Estimated Glomerular Filt Rate > 60; Glucose 165 mg/dL (70-99); Osmolality Calculated 306 mOsm/kg (285-295); Potassium 3.2 mmol/L (3.5-5.1); Sodium 146 mmol/L (136-145)
[2023-08-06 14:28] LABS: Ethanol < 3 mg/dL (0-6)
[2023-08-06 15:34] LABS: Amphetamine Screen Urine Positive (Negative); Barbiturate Screen Urine Negative (Negative); Benzodiazepines Screen Urine Negative (Negative); Cannabinoid Screen Urine Positive (Negative); Cocaine Screen Urine Negative (Negative); Methadone Screen Urine Negative (Negative); Opiate Screen Urine Negative (Negative); Phencyclidine Screen Urine Negative (Negative)
[2023-08-06 15:58] VITALS: BP 131/83; PULSE 88; RESP 14; TEMP 36.7; O2SAT 97
--- NOTE | 2023-08-06 16:07 | PC.NURSE ---
On 08/06/23, the student, [EN MIN ], provided care and completed [facility] documentation on this patient. I have reviewed the student's documentation and agree with the findings.
== END 2023-08-06 16:08 | disposition home or self-care (01) ==
PROVIDERS: Emergency Provider Emergency Medicine; PCP Family Medicine
DX: R44.1 Visual hallucinations (principal); F15.90 Other stimulant use, unspecified, uncomplicated; F12.90 Cannabis use, unspecified, uncomplicated; I10 Essential (primary) hypertension; K74.60 Unspecified cirrhosis of liver; F41.9 Anxiety disorder, unspecified; B18.2 Chronic viral hepatitis C; E03.9 Hypothyroidism, unspecified; F17.210 Nicotine dependence, cigarettes, uncomplicated
CPT/HCPCS: 36415; 70470; 70481; 80053; 80307; 85027; 85055; 99284; Q9967

== ENCOUNTER 2023-12-15 14:14 | Outpatient (CLI) | payer MEDICARE, SELFPAY ==
[2023-12-15 14:29] LABS: Hematocrit 37.5 % (35.0-42.0); Immature Platelet Fraction Pct 1.9 % (1.0-7.0); Mean Corpuscular HGB Conc 34.7 g/dL (32.0-36.0); Mean Corpuscular Hemoglobin 31.4 pg (27.0-31.0); Mean Corpuscular Volume 90.6 fL (78.0-102.0); Mean Platelet Volume 9.5 fl (9.2-11.8); Platelet Count Result 60 K/mm3 (150-420); Red Blood Count 4.14 M/mm3 (4.20-5.40); Red Cell Distribution Width 13.9 % (11.6-14.4); White Blood Count 3.8 K/mm3 (4.8-10.8)
[2023-12-15 14:53] LABS: Alanine Aminotransferase 28 U/L (14-59); Albumin Level 3.3 g/dL (3.4-5.0); Alkaline Phosphatase 84 U/L (46-116); Anion Gap 11 mmol/L (8-16); Aspartate Amino Transferase 32 U/L (15-37); Blood Urea Nitrogen 19 mg/dL (7-18); Calcium 8.7 mg/dL (8.5-10.1); Carbon Dioxide 27 mmol/L (21-32); Chloride 105 mmol/L (98-108); Estimated Glomerular Filt Rate 58; Glucose 200 mg/dL (70-99); Osmolality Calculated 304 mOsm/kg (285-295); Potassium 3.7 mmol/L (3.5-5.1); Sodium 143 mmol/L (136-145)
[2023-12-15 15:16] LABS: Hemoglobin A1C < 4.4 % (<5.7)
[2023-12-15 15:17] LABS: Band Neutrophils Percent 0 % (0-6); Lymphocytes Absolute Manual 0.64 K/mm3 (1.1-4.5); Lymphocytes Percent Manual 17 % (18-44); Monocytes Absolute Manual 0.22 K/mm3 (0.1-0.90); Monocytes Percent Manual 6 % (3-9); Neutrophils Absolute Manual 2.92 K/mm3 (1.7-7.2); Neutrophils Percent Manual 77 % (46-73); Platelet Estimate Decreased (Adequate); Schistocytes None Seen (NORMAL); Total Cells Counted 100
[2023-12-15 15:23] LABS: Thyroid Stimulating Hormone Reflex 6.05 u/IU/mL (0.36-3.74)
[2023-12-15 17:10] LABS: Free T4 Free Thyroxine Reflex 0.81 ng/dL (0.76-1.46)
== END 2023-12-15 14:15 | disposition home or self-care (01) ==
LOC: CHSLAB 14:16
PROVIDERS: PCP Family Medicine; Visit Provider Family Medicine
DX: E11.9 Type 2 diabetes mellitus without complications (principal); E03.9 Hypothyroidism, unspecified
CPT/HCPCS: 36415; 80053; 83036; 84439; 84443; 85025; 85055

== ENCOUNTER 2023-12-28 19:54 | Outpatient (CLI) | payer MEDICARE, SELFPAY ==
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
[2024-01-11 12:03] VITALS: BMI 31.1
== END 2023-12-29 07:22 | disposition home or self-care (01) ==
LOC: CHSCSM 19:55
PROVIDERS: PCP Family Medicine; Visit Provider Family Medicine
DX: G47.33 Obstructive sleep apnea (adult) (pediatric) (principal); R40.0 Somnolence; Z68.31 Body mass index [BMI] 31.0-31.9, adult
CPT/HCPCS: 95811

== ENCOUNTER 2024-01-30 13:37 | Outpatient (CLI) | payer MEDICARE, SELFPAY ==
--- NOTE | 2024-01-30 13:40 | ECHO_ITS ---
Patient Info Name: Meli Wagner Age: 63 years : 1960 Gender: Female Ht: 61 in Wt: 159 lbs BSA: 1.79 m2 HR: 75 bpm BP: 163 / 95 mmHg Heart Rhythm: Sinus Rhythm Technical Quality: Good Exam Date: 01/30/2024 1:49 PM Exam Location: Echo Lab Patient Status: Outpatient Admit Date: 01/30/2024 Staff Ordering Physician: Jevon Guadarrama DO Advertising Operations Manager: Jackie Piña RDCS Attending Provider: Jevon Guadarrama DO Referring Physician: Thierry ACUÑA; Exam Type: CA echo doppler color flow Study Info Indications - heart failure Complete two-dimensional, color flow and Doppler transthoracic echocardiogram is performed. Summary 1. Complete two-dimensional, color flow and Doppler transthoracic echocardiogram is performed. 2. Left ventricular chamber dimension is normal. 3. Left ventricular systolic function is hyperdynamic, estimated at >70%. 4. There is moderate concentric increased left ventricular wall thickness. 5. The left ventricular diastolic function is grade I diastolic dysfunction. 6. E/e' 16 is elevated. 7. There is mild aortic valve sclerosis. 8. The mitral valve has moderately calcified annulus. 9. There is mild mitral valve regurgitation. 10. There is trace tricuspid valve regurgitation. 11. No pulmonary hypertension, estimated pulmonary arterial systolic pressure is 12 mmHg. Left Ventricle E/e' 16 is elevated. Left ventricular chamber dimension is normal. Left ventricular systolic function is hyperdynamic, estimated at >70%. There is moderate concentric increased left ventricular wall thickness. The left ventricular diastolic function is grade I diastolic dysfunction. Right Ventricle Right ventricular systolic function is normal and with normal TAPSE 2.9 cm. Right ventricular chamber dimension is normal. Left Atria Left atrial chamber dimension is normal. Right Atria Right atrial chamber dimension is normal. Aortic Valve The aortic valve is trileaflet. There is mild aortic valve sclerosis. There is no aortic valve stenosis. There is no aortic valve regurgitation. Pulmonic Valve There is no pulmonic regurgitation. Mitral Valve The mitral valve has moderately calcified annulus. There is no mitral valve stenosis. There is mild mitral valve regurgitation. Tricuspid Valve There is trace tricuspid valve regurgitation. No pulmonary hypertension, estimated pulmonary arterial systolic pressure is 12 mmHg. Pericardium/Pleural There is no pericardial effusion. Inferior Vena Cava Normal inferior vena cava with >50% collapse upon inspiration consistent with normal right atrial pressure, 5 mmHg. Aorta The aortic root size at the sinus of Valsalva is normal. Left Ventricular Outflow Tract Name Value Normal LVOT 2D LVOT Diameter 1.9 cm LVOT Doppler LVOT Peak Velocity 116 cm/s LVOT Peak Gradient 5 mmHg LVOT Mean Gradient 4 mmHg LVOT VTI 31 cm LVOT VTI/AV VTI Ratio 0.8 LVOT Stroke Volume 84 ml Pulmonic Valve Name
== END 2024-01-30 13:38 | disposition home or self-care (01) ==
LOC: CHSIMG 13:38
PROVIDERS: PCP Family Medicine; Visit Provider Family Medicine
DX: I50.9 Heart failure, unspecified (principal); I08.3 Combined rheumatic disorders of mitral, aortic and tricuspid valves
CPT/HCPCS: 93306

== ENCOUNTER 2024-05-02 09:42 | Outpatient (CLI) | payer MEDICARE, SELFPAY ==
[2024-05-02 09:58] LABS: Basophils Absolute Auto 0.02 K/mm3 (0.00-0.10); Basophils Percent Auto 0.3 % (0.0-1.0); Eosinophils Absolute Auto 0.22 K/mm3 (0.02-0.50); Eosinophils Percent Auto 2.8 % (1.0-6.0); Hematocrit 37.5 % (35.0-42.0); Hemoglobin 13.1 g/dL (11.7-13.8); Immature Granulocyte Absolute 0.04 K/mm3 (0.00-0.00); Immature Granulocyte Percent A 0.5 % (0.0-0.0); Immature Platelet Fraction Pct 1.9 % (1.0-7.0); Lymphocytes Absolute Auto 1.06 K/mm3 (1.10-4.50); Lymphocytes Percent Auto 13.7 % (18.0-42.0); Mean Corpuscular HGB Conc 34.9 g/dL (32-36); Mean Corpuscular Hemoglobin 32.1 pg (27.0-31.0); Mean Corpuscular Volume 91.9 fL (78.0-102.0); Mean Platelet Volume 9.4 fl (9.2-11.8); Monocytes Absolute Auto 0.78 K/mm3 (0.10-0.90); Monocytes Percent Auto 10.1 % (2.0-11.0); Neutrophils Percent Auto 72.6 % (50.0-70.0); Platelet Count Result 96 K/mm3 (150-420); Red Blood Count 4.08 M/mm3 (4.20-5.40); Red Cell Distribution Width 13.8 % (11.6-14.4); White Blood Count 7.7 K/mm3 (4.8-10.8)
[2024-05-02 11:25] LABS: Alanine Aminotransferase 34 U/L (14-59); Albumin Level 3.6 g/dL (3.4-5.0); Alkaline Phosphatase 72 U/L (46-116); Anion Gap 10 mmol/L (4-12); Aspartate Amino Transferase 39 U/L (15-37); Bilirubin,Total 3.5 mg/dL (0.00-1.00); Blood Urea Nitrogen 18 mg/dL (7-18); CRP 1.1 mg/dL (0.0-0.9); Calcium 8.9 mg/dL (8.5-10.1); Carbon Dioxide 28 mmol/L (21-32); Chloride 104 mmol/L (98-108); Estimated Glomerular Filt Rate > 60; Folic Acid 15.1 ng/mL (8.6->20); Free T4 Free Thyroxine Reflex 0.91 ng/dL (0.76-1.46); Glucose 95 mg/dL (70-99); Osmolality Calculated 295 mOsm/kg (285-295); Potassium 3.6 mmol/L (3.5-5.1); Sodium 142 mmol/L (136-145); Total Protein 6.8 g/dL (6.4-8.2); Vitamin B12 814 pg/mL (193-986)
== END 2024-05-02 09:43 | disposition home or self-care (01) ==
LOC: CHSLAB 09:43
PROVIDERS: PCP Family Medicine; Visit Provider Family Medicine
DX: E03.9 Hypothyroidism, unspecified (principal); E53.8 Deficiency of other specified B group vitamins; R63.4 Abnormal weight loss
CPT/HCPCS: 36415; 80053; 82607; 82746; 84439; 84443; 85025; 85055; 86140

== ENCOUNTER 2024-05-10 13:14 | Outpatient (CLI) | payer MEDICARE, SELFPAY ==
--- NOTE | ~2024-05-10 | MM_ITS ---
EXAMINATION: MM screening rigo BI w mariana HISTORY: Screening TECHNIQUE: Craniocaudal and mediolateral oblique 3-D tomosynthesis images were obtained and synthetic 2-D images were generated. CAD analysis was submitted and interpreted. COMPARISON: 08/14/2020 BREAST PARENCHYMAL COMPOSITION: There are scattered areas of fibroglandular density. FINDINGS: There is no evidence of suspicious mass, calcification, or architectural distortion to sugg est malignancy in either breast. There has been no suspicious interval change. IMPRESSION: 1. No mammographic evidence of malignancy. 2. Recommend routine screening mammography in one year. BI-RADS Category 1: Negative Reviewed, dictated and finalized at location B.
--- NOTE | ~2024-05-10 | CT_ITS ---
CT Scan of the Chest without Contrast: Clinical Indication: Lung cancer screening, nicotine dependence Technique: Contiguous sections were acquired throughout the chest without intravenous contrast. Dose reduction technique was used on this scan by utilizing automated exposure control and iterative recon struction technique. The dose-length product (DLP) was 52.13 mGy-cm. Findings: There is no evidence of any significant mediastinal, hilar or axillary lymphadenopathy. Coronary bela ry calcifications are present. There is no evidence of pleural or pericardial effusion. With minimal groundglass opacities peripherally in the right upper lobe. There is patchy irregular co nsolidative change at the left lung base/lingula, which could reflect pneumonia or atelectatic change . Images through the upper abdomen reveal no abnormalities. Impression: Lung RADS 1-S: Negative. 12 month follow-up screening CT advised. Patchy irregular consolidative change left lung base and lingula, which could reflect pneumonia or at electatic change. There are also minimal ground glass opacities in the right upper lobe, which could be infectious/inflammatory nature. Consider short-term follow-up exam after interval therapy, as aakash cated. Reviewed, dictated and finalized at [facility]. Impression: Lung RADS 1-S: Negative. 12 month follow-up screening CT advised. Patchy irregular consolidative change left lung base and lingula, which could r eflect pneumonia or atelectatic change. There are also minimal ground glass opa cities in the right upper lobe, which could be infectious/inflammatory nature. Consider short-term follow-up exam after interval therapy, as indicated.
== END 2024-05-10 13:15 | disposition home or self-care (01) ==
LOC: CHSIMG 13:16
PROVIDERS: PCP Family Medicine; Visit Provider Family Medicine
DX: Z12.31 Encounter for screening mammogram for malignant neoplasm of breast (principal); Z12.2 Encounter for screening for malignant neoplasm of respiratory organs; Z87.891 Personal history of nicotine dependence; R91.8 Other nonspecific abnormal finding of lung field
CPT/HCPCS: 71271; 77063; 77067

== ENCOUNTER 2024-08-31 14:29 | Inpatient (IN) | payer MEDICARE, SELFPAY ==
[2024-08-31] VITALS (7 sets, daily range): BP systolic 128–154; BP diastolic 66–83; PULSE 78–85; RESP 16–22; TEMP 36.3–36.9; O2SAT 97–99; BMI 27.3
--- NOTE | ~2024-08-31 | XR_ITS ---
EXAMINATION: XR chest 1V portable DATE: 08/31/2024 15:26 INDICATION: Cough. Shortness of breath. TECHNIQUE: A single frontal view of the chest was obtained. COMPARISON: Chest 2 views 06/03/2022, chest CT 05/10/2024 FINDINGS: There are airspace opacities in right mid and lower lung zones and left lower lung zone. Th ere is a small right pleural effusion. No pneumothorax. The heart size is normal. IMPRESSION: 1. Airspace opacities in right mid and lower lung zones and left lower lung zone with slight worsenin g on the left, consistent with atelectasis/scarring versus pneumonia. 2. Small right pleural effusion. Reviewed, dictated and finalized at location A. ICITY EXPERT IMPRESSION: 1. Airspace opacities in right mid and lower lung zones and left lower lung zon e with slight worsening on the left, consistent with atelectasis/scarring versu s pneumonia. 2. Small right pleural effusion.
--- NOTE | 2024-08-31 14:50 | ED_ITS ---
HPI - SOB/Dyspnea General Chief Complaint: Upper Respiratory Infection Stated Complaint: cold systems Time Seen by Provider: 08/31/24 14:42 Source: patient and family Mode of arrival: ambulatory Limitations: no limitations History of Present Illness HPI Narrative: 64 YEARS OLD WHITE FEMALE CAME TO THE ED FROM HOME COMPLAINING OF COUGHING, SORE THROAT, HOARSENESS OF VOICE, INTERMITTENT FEVER, WEAKNESS, DIZZINESS OVER 2 WEEKS. PATIENT DID NOT SEE ANY MEDICAL PROVIDER DURING THAT TIME. HISTORY OF HYPERTENSION, TAKES ANTIHYPERTENSIVE MEDICATION NEEDED AND HYPOTHYROIDISM, PATIENT DENIES SICK CONTACT. PATIENT BEEN TAKING [id number] MEDICATION WITHOUT ANY IMPROVEMENT. Related Data Home Medications Medication Instructions Recorded Confirmed duloxetine 60 mg capsule,delayed 60 mg PO DAILY 08/31/24 08/31/24 release lisinopril 20 mg tablet 20 mg PO DAILY 08/31/24 08/31/24 meloxicam 7.5 mg tablet 7.5 mg PO DAILY 08/31/24 08/31/24 mirabegron 50 mg tablet,extended 50 mg PO DAILY 08/31/24 08/31/24 release 24 hr (Myrbetriq) omeprazole 20 mg capsule,delayed 20 mg PO DAILY 08/31/24 08/31/24 release potassium chloride 10 mEq 10 meq PO BID 08/31/24 08/31/24 tablet,extended release propranolol 20 mg tablet 20 mg PO BID 08/31/24 08/31/24 torsemide 20 mg tablet 20 mg PO DAILY 08/31/24 08/31/24 Allergies Allergy/AdvReac Type Severity Reaction Status Date / Time No Known Allergies Allergy Verified 05/02/24 07:31 Review of Systems Review of Systems: All systems reviewed & are unremarkable except as noted in HPI and below PMFSH Past Medical History Medical History Arthritis Benign hypertension Chronic GERD Generalized anxiety disorder Gout Hand fracture, left Hypothyroidism Pneumonia Surgical History Surgical History Medial meniscus tear Social History Social History Smoking packs per day: 0.5 Smoking cigarettes per day: 10.0 Years smoked: 15 Smoking pack-years: 7.50 Smoking status: Current every day smoker Tobacco type: cigarettes Alcohol intake: never Alcohol use details: social Substance use: current Substance use type: marijuana Other substance usage details: states uses once a week. Do You Feel Safe in your Home?: Yes Lack of Transportation: No Lack of Food: Sometimes True Current Housing: I Have Housing Concerned About Future Housing: No Difficulty Paying Gas/Electric Bills: No Difficulty Paying for Meds: No Currently Unemployed: No Education: High School Diploma/GED Difficulty w/ Childcare or Family Care: No Living arrangements: with family Additional living arrangements comments: Occupation/Education: unemployed Gender identity (if verbalized by the patient): Female Spiritual care concerns: No Exam Narrative: GENERAL APPEARANCE: WELL-DEVELOPED, WELL-NOURISHED , HOARSENESS OF VOICE SKIN: NORMAL COLOR HEAD: NORMOCEPHALIC, NONTRAUMATIC EYES: CLEAR CONJUNCTIVA ENT: SLIGHT OROPHARYNGEAL ERYTHEMA NECK: SUPPLE, NONTENDER CHEST AND RESPIRATORY: AIRWAY PATENT, NO RESPIRATORY DISTRESS, NO ACCESSORY MUSCLE USE, FEW WITH RALES AT THE BASES BILATERALLY HEART: REGULAR RATE/RHYTHM ABDOMEN: SOFT, NONTENDER, NO ORGANOMEGALY, QUIET BOWEL SOUNDS VASCULAR: NORMAL PERIPHERAL PULSES, NORMAL CAPILLARY REFILL. MUSCULOSKELETAL: NORMAL RANGE OF MOTION, NONTENDER BACK NEUROLOGIC: ALERT AND ORIENTED ?3, SLOT TECHNICIAN IS NORMAL TESTED, NO GROSS MOTOR DEFICIT Course Vital Signs Vital signs: Vital Signs Temperature 36.8 C 08/31/24 14:30 Respiratory Rate 22 H 08/31/24 14:30 Blood Pressure 154/83 H 08/31/24 14:30 Pulse Oximetry 98 08/31/24 14:30 Oxygen Delivery Room Air 08/31/24 14:30 Temperature 36.8 C 08/31/24 14:30 Pulse Rate 85 08/31/24 16:35 Respiratory Rate 20 08/31/24 16:35 Blood Pressure 142/80 H 08/31/24 16:35 Pulse Oximetry 98 08/31/24 16:35 Oxygen Delivery Room Air 08/31/24 16:35 MDM - SOB/Dyspnea MDM Narrative Medical decision making narrative: PATIENT CAME TO THE ED FROM HOME WITH UPPER RESPIRATORY VIRAL INFECTION LIKE SYMPTOMS STARTED OVER 2 WEEKS AGO. VITAL SIGNS ARE STABLE PHYSICAL EXAMINATION SHOWING ILL PATIENT WITH HOARSENESS OF VOICE, SOME RALES AT THE BASES OF THE LUNG DIFFERENTIAL DIAGNOSIS INCLUDE RESPIRATORY VIRAL INFECTION, PNEUMONIA, ELECTROLYTE IMBALANCE, DEHYDRATION, SECONDARY BACTERIAL INFECTION BLOOD WORKUP TODAY SHOWED WBC OF 4.2, HEMOGLOBIN 9.7, OTHERWISE INSIGNIFICANT ABNORMALITY, CHEST X-RAY SHOWED FINDING CONSISTENT WITH ATELECTASIS VERSUS PNEUMONIA, PATIENT BEEN HAVING VIRAL INFECTION OVER 2 WEEKS, SECONDARY BACTERIAL INFECTION IS MY CONCERN, BACTERIAL PNEUMONIA IS LIKELY. ADMIT TO HOSPITALIST START CEFTRIAXONE AND AZITHROMYCIN IV. Differential Diagnosis Differential diagnosis: Likely other ( ABOVE) Lab Data 08/31/24 15:13 08/31/24 15:13 Labs: Lab Results 08/31/24 08/31/24 Range/Units 14:50 15:13 WBC 4.2 L (4.8-10.8) K/mm3 RBC 3.06 L (4.20-5.40) M/mm3 Hgb 9.7 L (11.7-13.8) g/dL Hct 29.3 L (35.0-42.0) % MCV 95.8 (78.0-102.0) fL MCH 31.7 H (27.0-31.0) pg MCHC 33.1 (32-36) g/dL RDW 17.3 H (11.6-14.4) % Plt Count 84 L (150-420) K/mm3 MPV 8.8 L (9.2-11.8) fl Immature Gran % (Auto) 0.7 H (0.0-0.0) % Neut % (Auto) 65.5 (50.0-70.0) % Lymph % (Auto) 19.2 (18.0-42.0) % Sharp % (Auto) 10.5 (2.0-11.0) % Eos % (Auto) 3.6 (1.0-6.0) % Baso % (Auto) 0.5 (0.0-1.0) % Lymph # (Auto) 0.81 L (1.10-4.50) K/mm3 Sharp # (Auto) 0.44 (0.10-0.90) K/mm3 Eos # (Auto) 0.15 (0.02-0.50) K/mm3 Baso # (Auto) 0.02 (0.00-0.10) K/mm3 Abs Immat Gran (auto) 0.03 H (0.00-0.00) K/mm3 Absolute Neuts (auto) 2.76 (1.70-7.20) K/mm3 Absolute Nucleated RBC 0.00 (0.00-0.00) K/mm3 Nucleated RBC % 0.0 (0-0.0) % PT 11.1 (9.50-12.1) Seconds INR 1.0 APTT 27.3 (23.9-30.70) Sec Sodium 142 (136-145) mmol/L Potassium 3.8 (3.5-5.1) mmol/L Chloride 106 (98-108) mmol/L Carbon Dioxide 28 (21-32) mmol/L Anion Gap 8 (4-12) mmol/L BUN 11 (7-18) mg/dL Creatinine 0.76 (0.55-1.02) mg/dL Estim Creat Clear Calc 55 ml/min Estimated GFR > 60 (59 - ) Glucose 147 H (70-99) mg/dL Calculated Osmolality 296 H (285-295) mOsm/kg Lactic Acid 1.3 (0.4-2.0) mmol/L Calcium 8.5 (8.5-10.1) mg/dL Total Bilirubin 1.4 H (0.00-1.00) mg/dL AST 51 H (15-37) U/L ALT 32 (14-59) U/L Alkaline Phosphatase 140 H (46-116) U/L C-Reactive Protein 3.7 H (0.0-0.9) mg/dL Total Protein 6.8 (6.4-8.2) g/dL Albumin 2.3 L (3.4-5.0) g/dL Influenza A (RT-PCR) Negative (Negative) Influenza B (RT-PCR) Negative (Negative) RSV (RT-PCR) Negative (Negative) SARS-CoV-2 RNA (RT-PCR) Negative (Negative) Critical Care Time Critical Care Time Critical Care Time: No Discharge Plan Discharge Clinical Impression: Community acquired pneumonia Patient Disposition: Still a Patient Condition: Stable
--- NOTE | 2024-08-31 14:51 | ECG_ITS ---
Test Date: 2024-08-31 15:01:26 Measurements Intervals [place] Rate: 85 P: 58 [place]: 153 QRS: 62 QRSD: 80 T: 78 QT: 383 QTc: 457 Interpretive Statements SINUS RHYTHM WITH OCCASIONAL VENTRICULAR PREMATURE COMPLEXES DELAYED PRECORDIAL R/S TRANSITION BORDERLINE ST-T WAVE ABNORMALITY- HIGH LATERAL LEADS BORDERLINE ECG No previous ECG available for comparison Electronically Signed On 08-31-2024 15:15:08 PROJ MGR by Óscar Garcia D.O.
--- NOTE | 2024-08-31 15:04 | PCDIET ---
covid culture sent to lab
[2024-08-31] MEDS: LACTATED RINGERS 1,000 ML 999 ML IV CONT (15:07)
[2024-08-31 15:18] LABS: Basophils Absolute Auto 0.02 K/mm3 (0.00-0.10); Basophils Percent Auto 0.5 % (0.0-1.0); Eosinophils Absolute Auto 0.15 K/mm3 (0.02-0.50); Eosinophils Percent Auto 3.6 % (1.0-6.0); Hematocrit 29.3 % (35.0-42.0); Hemoglobin 9.7 g/dL (11.7-13.8); Immature Granulocyte Absolute 0.03 K/mm3 (0.00-0.00); Immature Granulocyte Percent A 0.7 % (0.0-0.0); Lymphocytes Absolute Auto 0.81 K/mm3 (1.10-4.50); Lymphocytes Percent Auto 19.2 % (18.0-42.0); Mean Corpuscular HGB Conc 33.1 g/dL (32-36); Mean Corpuscular Hemoglobin 31.7 pg (27.0-31.0); Mean Corpuscular Volume 95.8 fL (78.0-102.0); Mean Platelet Volume 8.8 fl (9.2-11.8); Monocytes Absolute Auto 0.44 K/mm3 (0.10-0.90); Monocytes Percent Auto 10.5 % (2.0-11.0); Neutrophils Absolute Auto 2.76 K/mm3 (1.70-7.20); Neutrophils Percent Auto 65.5 % (50.0-70.0); Platelet Count Result 84 K/mm3 (150-420); Red Blood Count 3.06 M/mm3 (4.20-5.40); Red Cell Distribution Width 17.3 % (11.6-14.4); White Blood Count 4.2 K/mm3 (4.8-10.8)
[2024-08-31 15:33] LABS: Partial Thromboplastin Time 27.3 Sec (23.9-30.70); Prothrombin Time 11.1 Seconds (9.50-12.1)
[2024-08-31 15:35] LABS: Influenza A QL RT-PCR Negative (Negative); Influenza B QL RT-PCR Negative (Negative); RSV RNA, RT-PCR Negative (Negative); SARS-CoV-2 RNA PCR Negative (Negative)
[2024-08-31 15:39] LABS: Alanine Aminotransferase 32 U/L (14-59); Albumin Level 2.3 g/dL (3.4-5.0); Alkaline Phosphatase 140 U/L (46-116); Anion Gap 8 mmol/L (4-12); Aspartate Amino Transferase 51 U/L (15-37); Bilirubin,Total 1.4 mg/dL (0.00-1.00); Blood Urea Nitrogen 11 mg/dL (7-18); CRP 3.7 mg/dL (0.0-0.9); Calcium 8.5 mg/dL (8.5-10.1); Carbon Dioxide 28 mmol/L (21-32); Chloride 106 mmol/L (98-108); Estimated CRCL calculation 55 ml/min; Estimated Glomerular Filt Rate > 60; Glucose 147 mg/dL (70-99); Osmolality Calculated 296 mOsm/kg (285-295); Potassium 3.8 mmol/L (3.5-5.1); Sodium 142 mmol/L (136-145); Total Protein 6.8 g/dL (6.4-8.2)
[2024-08-31 15:43] LABS: Lactic Acid Reflex 1.3 mmol/L (0.4-2.0)
[2024-08-31] MEDS: AZITHROMYCIN 500 MG/NS 250 ML 500 MG/250 ML BAG 250 MG IVPB (16:15)
--- NOTE | 2024-08-31 16:30 | ADMGEN ---
This patient, Meli Wagner, was admitted to 2nd Floor Room 203-1. Patient/family oriented to hospital policies and general routines including ID bracelet, bed and alarms, visiting hours, pain management, procedures, bathroom and other care routines, personal items, smoking policy, room service/diet, and visiting hours. Information on how to activate the Rapid Response Team has been discussed. Patient/Family are encouraged to report perceived risks to care and to ask questions if they do not understand what they are told or what they should do.
[2024-08-31] MEDS: IPRATROPIUM 0.5 MG/ALBUTEROL SULFATE 2.5 MG AMPUL.NEB 3 ML INHALATION ×2 (18:18→23:55)
[2024-08-31] MEDS: predniSONE 20 MG TABLET 40 MG PO (18:18)
[2024-08-31] MEDS: ALBUTEROL SULFATE (*SP) INHALER 1 PUFF INHALATION (20:49)
[2024-08-31] MEDS: guaiFENesin 12 HR 600 MG TABCR 1200 MG PO (20:50)
[2024-08-31] MEDS: LORATADINE 10 MG TABLET PO (20:50)
--- NOTE | 2024-08-31 22:35 | PC.NURSE ---
assumed care from robert akbar
--- NOTE | 2024-08-31 22:37 | PC.NURSE ---
report to naomie licona. all questions answered.
--- NOTE | 2024-08-31 23:15 | PC.NURSE ---
patient ambulated x 1 with walker to the bathroom and back to bed. patient requested something to eat. turkey sandwich and milk was given. instructed patient to use call light when she was finished and this rn would turn the lights back off and throw away the trash. patient verbalized understanding
[2024-09-01] MEDS: ALBUTEROL SULFATE (*SP) INHALER 1 PUFF INHALATION ×7 (00:03→23:56)
[2024-09-01] MEDS: ACETAMINOPHEN 325 MG TABLET 650 MG PO (02:39)
--- NOTE | 2024-09-01 02:42 | PC.NURSE ---
tylenol given for abdominal pain. patient states her stomach jurts from coughing
--- NOTE | 2024-09-01 05:10 | PC.NURSE ---
patient up to bedside commode with assist x 1.
[2024-09-01 05:20] LABS: Hematocrit 27.8 % (35.0-42.0); Hemoglobin 9.1 g/dL (11.7-13.8); Immature Platelet Fraction Pct 1.1 % (1.0-7.0); Mean Corpuscular HGB Conc 32.7 g/dL (32-36); Mean Corpuscular Hemoglobin 31.5 pg (27.0-31.0); Mean Corpuscular Volume 96.2 fL (78.0-102.0); Mean Platelet Volume 8.8 fl (9.2-11.8); Platelet Count Result 84 K/mm3 (150-420); Red Blood Count 2.89 M/mm3 (4.20-5.40); Red Cell Distribution Width 16.7 % (11.6-14.4); White Blood Count 3.5 K/mm3 (4.8-10.8)
[2024-09-01 05:37] LABS: Alanine Aminotransferase 27 U/L (14-59); Albumin Level 2.2 g/dL (3.4-5.0); Alkaline Phosphatase 127 U/L (46-116); Anion Gap 10 mmol/L (4-12); Aspartate Amino Transferase 45 U/L (15-37); Bilirubin,Total 1.2 mg/dL (0.00-1.00); Blood Urea Nitrogen 12 mg/dL (7-18); Calcium 8.8 mg/dL (8.5-10.1); Carbon Dioxide 26 mmol/L (21-32); Chloride 107 mmol/L (98-108); Estimated CRCL calculation 46 ml/min; Estimated Glomerular Filt Rate > 60; Glucose 186 mg/dL (70-99); Osmolality Calculated 300 mOsm/kg (285-295); Potassium 4.2 mmol/L (3.5-5.1); Sodium 143 mmol/L (136-145); Total Protein 6.5 g/dL (6.4-8.2)
[2024-09-01 05:40] LABS: Band Neutrophils Percent 2 % (0-6); Basophils Percent Manual 0 % (0-1); Eosinophils Percent Manual 0 % (1-6); Lymphocytes Absolute Manual 0.42 K/mm3 (1.1-4.5); Lymphocytes Percent Manual 12 % (18-44); Metamyelocytes Percent 1 %; Monocytes Absolute Manual 0.17 K/mm3 (0.1-0.90); Monocytes Percent Manual 5 % (3-9); Neutrophils Absolute Manual 2.87 K/mm3 (1.7-7.2); Neutrophils Percent Manual 80 % (46-73); Total Cells Counted 100
[2024-09-01 05:41] LABS: Platelet Estimate Decreased (Adequate)
[2024-09-01 06:00] VITALS: BP 128/70; PULSE 78; RESP 16; TEMP 36.2; O2SAT 96
[2024-09-01 06:00] LABS: Folic Acid 9.6 ng/mL (8.6->20); Iron 105 ug/dL (50-170); Percent Iron Saturation 34 % (12-57); Thyroid Stimulating Hormone 18.64 uIU/mL (0.36-3.74); Vitamin B12 1033 pg/mL (193-986)
[2024-09-01] MEDS: IPRATROPIUM 0.5 MG/ALBUTEROL SULFATE 2.5 MG AMPUL.NEB 3 ML INHALATION ×4 (06:22→23:57)
[2024-09-01] MEDS: LEVOTHYROXINE SODIUM 100 MCG TABLET PO (07:07)
[2024-09-01] MEDS: LEVOTHYROXINE SODIUM 75 MCG TABLET PO (07:07)
[2024-09-01] MEDS: lisinopriL 20 MG TABLET PO (08:08)
[2024-09-01] MEDS: guaiFENesin 12 HR 600 MG TABCR 1200 MG PO ×2 (08:09→20:06)
[2024-09-01] MEDS: MIRABEGRON 25 MG ER TABLET 50 MG PO (08:09)
[2024-09-01] MEDS: DULoxetine HCL 30 MG CAPSULE.DR 60 MG PO (08:09)
[2024-09-01 08:10] VITALS: PULSE 93
[2024-09-01] MEDS: PROPRANOLOL HCL 20 MG TABLET PO ×2 (08:10→16:33)
[2024-09-01] MEDS: TORSEMIDE 20 MG TABLET PO (08:10)
[2024-09-01] MEDS: buPROPion HCL XL (24 HR) 150 MG TABCR PO (08:11)
[2024-09-01] MEDS: POTASSIUM CHLORIDE 10 MEQ ER TABLET PO ×2 (08:11→16:33)
[2024-09-01] MEDS: predniSONE 20 MG TABLET 40 MG PO (08:11)
[2024-09-01] MEDS: PANTOPRAZOLE 40 MG TABLET PO (08:12)
--- NOTE | 2024-09-01 09:40 | P.HP_ITS ---
H&P: HPI History of Present Illness Date/Time: 09/01/24 09:40 Chief Complaint: SOB/productive cough/weakness x 2 weeks Narrative: Patient is a 64-year-old female who presented to the emergency department with complaints worsening productive cough, shortness of breath, Sore throat and generalized weakness. patient states she has a past medical history of hypertension, COPD, GERD, anxiety/ depression, hypothyroidism, and recently diagnosed with EZRA. patient states symptoms began 2 weeks ago she attempted to take OTC he is with no relief worsening of symptoms. denied any chest pain, nausea but did also endorse fevers x2 at home with chills. patient reports she has been very depressed lately due to the loss of her last year and recently losing her camper and home currently living with her sister, she states she has not been taking any of her home medications for quite some time less follow-up with her primary care physician was in January of 2024 at which time she still was not taking her medications she was newly diagnosed with EZRA and supposed to start CPAP. CXR showed airspace opacities in the right mid and lower lobe lung reece consistent with atelectasis versus pneumonia. patient was admitted to the medical unit for further evaluation and treatment of pneumonia and COPD exacerbation. Review of Systems Review of Systems: All systems reviewed & are unremarkable except as noted in HPI and below PMFSH Past Medical History Medical History Arthritis Benign hypertension Chronic GERD Generalized anxiety disorder Gout Hand fracture, left Hypothyroidism Pneumonia Surgical History Surgical History Medial meniscus tear Social History Social History Smoking packs per day: 0.5 Smoking cigarettes per day: 10.0 Years smoked: 15 Smoking pack-years: 7.50 Smoking status: Current every day smoker Tobacco type: cigarettes Alcohol intake: never Alcohol use details: social Substance use: current Substance use type: marijuana Other substance usage details: states uses once a week. Do You Feel Safe in your Home?: Yes Lack of Transportation: No Lack of Food: Sometimes True Current Housing: I Have Housing Concerned About Future Housing: No Difficulty Paying Gas/Electric Bills: No Difficulty Paying for Meds: No Currently Unemployed: No Education: High School Diploma/GED Difficulty w/ Childcare or Family Care: No Living arrangements: with family Additional living arrangements comments: Occupation/Education: unemployed Gender identity (if verbalized by the patient): Female Spiritual care concerns: No Meds Home Medications and Allergies Home Medications Medication Instructions Recorded Confirmed Type bupropion HCl 150 mg 24 hr tablet, 150 mg PO QAM #90 tabs 07/01/23 08/31/24 Rx extended release albuterol sulfate 90 mcg/actuation See Rx Instructions .Route 04/02/24 08/31/24 Rx aerosol inhaler .COMPLEX #8.5 grams levothyroxine 175 mcg tablet 175 mcg PO DAILY #90 tabs 07/06/24 08/31/24 Rx duloxetine 60 mg capsule,delayed 60 mg PO DAILY 08/31/24 08/31/24 History release lisinopril 20 mg tablet 20 mg PO DAILY 08/31/24 08/31/24 History meloxicam 7.5 mg tablet 7.5 mg PO DAILY 08/31/24 08/31/24 History mirabegron 50 mg tablet,extended 50 mg PO DAILY 08/31/24 08/31/24 History release 24 hr (Myrbetriq) omeprazole 20 mg capsule,delayed 20 mg PO DAILY 08/31/24 08/31/24 History release potassium chloride 10 mEq 10 meq PO BID 08/31/24 08/31/24 History tablet,extended release propranolol 20 mg tablet 20 mg PO BID 08/31/24 08/31/24 History torsemide 20 mg tablet 20 mg PO DAILY 08/31/24 08/31/24 History Allergies Allergy/AdvReac Type Severity Reaction Status Date / Time No Known Allergies Allergy Verified 05/02/24 07:31 Vital Signs Vital Signs - 24 hr 08/31/24 14:30 08/31/24 14:55 08/31/24 16:35 Temperature 98.2 F Pulse Rate 85 Respiratory Rate 22 H 20 Blood Pressure 154/83 H 142/80 H Pulse Oximetry 98 98 98 Oxygen Delivery Room Air Room Air Room Air 08/31/24 17:16 08/31/24 16:30 08/31/24 22:00 Temperature 98.4 F Pulse Rate 78 Respiratory Rate 20 Blood Pressure 128/66 Pulse Oximetry 99 99 97 Oxygen Delivery Room Air Room Air Room Air 08/31/24 23:35 09/01/24 06:00 09/01/24 08:10 Temperature 97.3 F L 97.2 F L Pulse Rate 81 78 93 Respiratory Rate 16 16 Blood Pressure 133/73 128/70 Pulse Oximetry 98 96 Oxygen Delivery Room Air Room Air Exam Narrative: * GENERAL: Alert and oriented x 3 tearful female. No acute distress. * EYES: EOMI. No scleral icterus. PERRLA. * HEENT: Moist mucous membranes. Hoarseness noted with conversation * LUNGS:Diminished with expiratory wheezing to auscultation bilaterally. No accessory muscle use. * CARDIOVASCULAR: Regular rate and rhythm. No murmur. No JVD. S1-S2 * ABDOMEN: Soft, non tenderness and non-distended. No palpable masses. * EXTREMITIES: No edema. Non-tender * SKIN: No rashes or lesions. Skin warm, dry. * NEUROLOGIC: No focal neurological deficits. CN II-XII grossly intact * PSYCHIATRIC: Tearful mood and affect. Poor judgement and insight. No suicidal or homicidal ideation. H&P: Results Labs Labs: Short CBC 08/31/24 09/01/24 Range/Units 15:13 05:01 WBC 4.2 L 3.5 L (4.8-10.8) K/mm3 Hgb 9.7 L 9.1 L (11.7-13.8) g/dL Hct 29.3 L 27.8 L (35.0-42.0) % Plt Count 84 L 84 L (150-420) K/mm3 BMP 08/31/24 09/01/24 15:13 05:01 Sodium 142 143 Potassium 3.8 4.2 Chloride 106 107 Carbon Dioxide 28 26 BUN 11 12 Creatinine 0.76 0.92 Glucose 147 H 186 H Calcium 8.5 8.8 Liver Function 08/31/24 09/01/24 Range/Units 15:13 05:01 Total Bilirubin 1.4 H 1.2 H (0.00-1.00) mg/dL AST 51 H 45 H (15-37) U/L ALT 32 27 (14-59) U/L Alkaline Phosphatase 140 H 127 H (46-116) U/L Albumin 2.3 L 2.2 L (3.4-5.0) g/dL Imaging Chest x-ray: Radiologist's impression: EXAMINATION: XR chest 1V portable DATE: 08/31/2024 15:26 INDICATION: Cough. Shortness of breath. TECHNIQUE: A single frontal view of the chest was obtained. COMPARISON: Chest 2 views 06/03/2022, chest CT 05/10/2024 FINDINGS: There are airspace opacities in right mid and lower lung zones and left lower lung zone. There is a small right pleural effusion. No pneumothorax. The heart size is normal. IMPRESSION: 1. Airspace opacities in right mid and lower lung zones and left lower lung zone with slight worsening on the left, consistent with atelectasis/scarring versus pneumonia. 2. Small right pleural effusion. Assessment and Plan Assessment and plan (1) Community acquired pneumonia: Code(s): J18.9 - Pneumonia, unspecified organism Status: Acute Assessment and Plan: * Pneumonia * Bronchodilators. * WBC 3.8 * Chest x-ray reviewed * incentive spirometry while awake. * sputum culture ordered * influenza/COVID/RSV negative * Rocephin and azithromycin * supplemental oxygen therapy to maintain oxygen 92% Currently on RA * mucolytics * patient reported sore throat added loss dangers and will get strep test * antipyretics for fever * Smoking cessation counseling done * CMP/CBC daily (2) COPD (chronic obstructive pulmonary disease): Code(s): J44.9 - Chronic obstructive pulmonary disease, unspecified Status: Acute Assessment and Plan: * Bronchodilators. * Chest x-ray reviewed * incentive spirometry while awake. * steroids initiated * azithromycin 500 x 1 day/250 daily * supplemental oxygen therapy to maintain oxygen 92% * Evaluation from home O2 if saturation less than 88% on room air. * Smoking cessation counseling done (3) Hepatitis C carrier: Code(s): B18.2 - Chronic viral hepatitis C Status: Acute Assessment and Plan: * medical record shows carrier * elevated t-bill and AST * PLT 86 * repeat hepatitis panel pending * anemia stable (4) Thrombocytopenia: Code(s): D69.6 - Thrombocytopenia, unspecified Status: Acute Assessment and Plan: * SEE ABOVE likely secondary to hepatitis * Hep panel pending to verify * monitor for any bleeding * Transfuse FFP if <15 (5) Hypothyroidism: Code(s): E03.9 - Hypothyroidism, unspecified Status: Acute Assessment and Plan: * HX of but noncompliant with medication has not taken for months * TSH greater than 18 * resumed her previous levothyroxine prescription (6) Benign hypertension: Code(s): I10 - Essential (primary) hypertension Status: Acute Assessment and Plan: * Stable * Resumed lisinopril (7) Depression: Code(s): F32.9 - Major depressive disorder, single episode, unspecified Status: Acute Assessment and Plan: * still reporting depression after her passed recent social difficulties * patient had not been taking her antidepressants that were prescribed * resumed her antidepressants at this time * she denied any suicidal ideations (8) Anemia: Code(s): D64.9 - Anemia, unspecified Status: Acute Assessment and Plan: * likely secondary to hepatitis as well as poor nutrition * No evidence of bleeding * stable Hgb at 9.1 * will monitor transfuse PRBC <7.0 Plan Code status: Full code per patient DVT prophylaxis: Lovenox Stress ulcer prophylaxis: SCD PT/OT notes: Pending Disposition: patient was admitted to the medical unit for treatment of pneumonia / COPD exacerbation patient reports she has been noncompliant with her medications at due to social events in life. Patient states she lost her home but is currently staying with her sister. PT OT ordered for evaluation patient states she currently uses a walker for ambulation. Quality VTE Prophylaxis VTE prophylaxis: mechanical ordered -Patient's previous records reviewed on admission -ER notes reviewed in detail on admission -discussed all findings and current treatment plan with patient/Family/POA -Consultations reviewed for recommendations -Patient's disposition for safe discharge discussed with keycase assembler Dictation performed by [email or web address] direct speech recognition software, therefore technical support director variants and typographical errors may occur. Hospitalist [facility] Advance Care Plan I have confirmed that the patient's Advanced Care Plan is present, code status is documented, or surrogate decision maker is listed in patient medical record.: Yes Medication Reconciliation I have utilized all available resources to obtain, update and review the patients current medications (includes all prescriptions, OTC, herbals, cannabis, and nutritional supplements).: Yes The patient is not eligible for med reconciliation; the patient is in a emergent medical situation where delaying treatment would jeopardize the patients health.: No
[2024-09-01 10:26] LABS: Amphetamine Screen Urine Negative (Negative); Barbiturate Screen Urine Negative (Negative); Benzodiazepines Screen Urine Negative (Negative); Cannabinoid Screen Urine Negative (Negative); Cocaine Screen Urine Negative (Negative); Methadone Screen Urine Negative (Negative); Opiate Screen Urine Negative (Negative); Phencyclidine Screen Urine Negative (Negative)
--- NOTE | 2024-09-01 13:23 | PC.NURSE ---
Patient changed from observation status to inpatient
[2024-09-01] MEDS: AZITHROMYCIN 500 MG/NS 250 ML 500 MG/250 ML BAG 250 MG IVPB (14:43)
[2024-09-01 16:00] VITALS: BP 110/64; PULSE 78; RESP 16; TEMP 36.5; O2SAT 96
[2024-09-01 16:33] VITALS: PULSE 67
[2024-09-01 20:00] VITALS: PULSE 67; RESP 16; O2SAT 96
[2024-09-01] MEDS: LORATADINE 10 MG TABLET PO (20:06)
[2024-09-01 23:55] VITALS: PULSE 67; RESP 16; O2SAT 96
[2024-09-02] VITALS (11 sets, daily range): BP systolic 87–102; BP diastolic 43–54; PULSE 64–81; RESP 16–17; TEMP 35.9–36.7; O2SAT 95–98
[2024-09-02] MEDS: LEVOTHYROXINE SODIUM 100 MCG TABLET PO (05:48)
[2024-09-02] MEDS: LEVOTHYROXINE SODIUM 75 MCG TABLET PO (05:48)
[2024-09-02] MEDS: ALBUTEROL SULFATE (*SP) INHALER 1 PUFF INHALATION ×5 (05:48→20:10)
[2024-09-02] MEDS: IPRATROPIUM 0.5 MG/ALBUTEROL SULFATE 2.5 MG AMPUL.NEB 3 ML INHALATION ×3 (05:50→18:51)
[2024-09-02 07:12] LABS: Basophils Absolute Auto 0.02 K/mm3 (0.00-0.10); Basophils Percent Auto 0.2 % (0.0-1.0); Eosinophils Percent Auto 1.1 % (1.0-6.0); Hematocrit 31.5 % (35.0-42.0); Hemoglobin 10.1 g/dL (11.7-13.8); Immature Granulocyte Absolute 0.14 K/mm3 (0.00-0.00); Immature Granulocyte Percent A 1.6 % (0.0-0.0); Lymphocytes Percent Auto 17.9 % (18.0-42.0); Mean Corpuscular HGB Conc 32.1 g/dL (32-36); Mean Corpuscular Hemoglobin 31.2 pg (27.0-31.0); Mean Corpuscular Volume 97.2 fL (78.0-102.0); Mean Platelet Volume 8.6 fl (9.2-11.8); Monocytes Absolute Auto 0.86 K/mm3 (0.10-0.90); Monocytes Percent Auto 9.6 % (2.0-11.0); Neutrophils Absolute Auto 6.21 K/mm3 (1.70-7.20); Neutrophils Percent Auto 69.6 % (50.0-70.0); Platelet Count Result 105 K/mm3 (150-420); Red Blood Count 3.24 M/mm3 (4.20-5.40); Red Cell Distribution Width 17.2 % (11.6-14.4); White Blood Count 8.9 K/mm3 (4.8-10.8)
[2024-09-02 07:26] LABS: Alanine Aminotransferase 38 U/L (14-59); Albumin Level 2.1 g/dL (3.4-5.0); Alkaline Phosphatase 132 U/L (46-116); Anion Gap 7 mmol/L (4-12); Aspartate Amino Transferase 38 U/L (15-37); Bilirubin,Total 1.6 mg/dL (0.00-1.00); Blood Urea Nitrogen 16 mg/dL (7-18); Calcium 8.1 mg/dL (8.5-10.1); Carbon Dioxide 29 mmol/L (21-32); Chloride 106 mmol/L (98-108); Estimated CRCL calculation 48 ml/min; Estimated Glomerular Filt Rate > 60; Glucose 111 mg/dL (70-99); Osmolality Calculated 296 mOsm/kg (285-295); Potassium 3.6 mmol/L (3.5-5.1); Sodium 142 mmol/L (136-145); Total Protein 6.3 g/dL (6.4-8.2)
[2024-09-02] MEDS: MIRABEGRON 25 MG ER TABLET 50 MG PO (08:40)
[2024-09-02] MEDS: DULoxetine HCL 30 MG CAPSULE.DR 60 MG PO (08:41)
[2024-09-02] MEDS: guaiFENesin 12 HR 600 MG TABCR 1200 MG PO ×2 (08:41→20:11)
[2024-09-02] MEDS: predniSONE 20 MG TABLET 40 MG PO (08:41)
[2024-09-02] MEDS: buPROPion HCL XL (24 HR) 150 MG TABCR PO (08:42)
[2024-09-02] MEDS: lisinopriL 20 MG TABLET PO (08:43)
[2024-09-02] MEDS: POTASSIUM CHLORIDE 10 MEQ ER TABLET PO ×2 (08:43→16:37)
[2024-09-02] MEDS: TORSEMIDE 20 MG TABLET PO (08:43)
[2024-09-02] MEDS: PANTOPRAZOLE 40 MG TABLET PO (08:44)
[2024-09-02] MEDS: PROPRANOLOL HCL 20 MG TABLET PO (08:44)
--- NOTE | 2024-09-02 11:44 | P.PNIM_ITS ---
Progress Note: A&P Assessment and Plan (1) Community acquired pneumonia: Code(s): J18.9 - Pneumonia, unspecified organism Status: Acute Assessment and Plan: * Pneumonia * Bronchodilators. * WBC 3.8 * Chest x-ray reviewed * incentive spirometry while awake. * sputum culture ordered * influenza/COVID/RSV negative * Rocephin and azithromycin * supplemental oxygen therapy to maintain oxygen 92% Currently on RA * mucolytics * patient reported sore throat added loss dangers and will get strep test * antipyretics for fever * Smoking cessation counseling done * CMP/CBC daily (2) COPD (chronic obstructive pulmonary disease): Code(s): J44.9 - Chronic obstructive pulmonary disease, unspecified Status: Acute Assessment and Plan: * Bronchodilators. * Chest x-ray reviewed * incentive spirometry while awake. * steroids initiated * azithromycin 500 x 1 day/250 daily * supplemental oxygen therapy to maintain oxygen 92% * Evaluation from home O2 if saturation less than 88% on room air. * Smoking cessation counseling done (3) Hepatitis C carrier: Code(s): B18.2 - Chronic viral hepatitis C Status: Acute Assessment and Plan: * medical record shows carrier * elevated t-bill and AST * PLT 86 * repeat hepatitis panel pending * anemia stable (4) Thrombocytopenia: Code(s): D69.6 - Thrombocytopenia, unspecified Status: Acute Assessment and Plan: * SEE ABOVE likely secondary to hepatitis * Hep panel pending to verify * monitor for any bleeding * Transfuse FFP if <15 (5) Hypothyroidism: Code(s): E03.9 - Hypothyroidism, unspecified Status: Acute Assessment and Plan: * HX of but noncompliant with medication has not taken for months * TSH greater than 18 * resumed her previous levothyroxine prescription (6) Benign hypertension: Code(s): I10 - Essential (primary) hypertension Status: Acute Assessment and Plan: * Stable * Resumed lisinopril (7) Depression: Code(s): F32.9 - Major depressive disorder, single episode, unspecified Status: Acute Assessment and Plan: * still reporting depression after her passed recent social difficulties * patient had not been taking her antidepressants that were prescribed * resumed her antidepressants at this time * she denied any suicidal ideations (8) Anemia: Code(s): D64.9 - Anemia, unspecified Status: Acute Assessment and Plan: * likely secondary to hepatitis as well as poor nutrition * No evidence of bleeding * stable Hgb at 9.1 * will monitor transfuse PRBC <7.0 Plan Code status: Full code per patient DVT prophylaxis: Lovenox Stress ulcer prophylaxis: SCD PT/OT notes: Pending Disposition: patient was admitted to the medical unit for treatment of pneumonia / COPD exacerbation patient reports she has been noncompliant with her medications at due to social events in life. Patient states she lost her home but is currently staying with her sister. PT OT ordered for evaluation patient states she currently uses a walker for ambulation. Time Spent With Patient Time with patient: 15 - 25 minutes Subjective Date/time seen: 09/02/24 11:44 Interval history: patient is a 64-year-old female admitted to the medical unit for treatment of pneumonia / COPD exacerbation 09/02/24: patient still with productive cough but overall feeling better remained on room air and afebrile. Patient still reports SOB with activity and generalized weakness. Patient denied any chest pain, nausea, or vomiting. Review of Systems Review of Systems: All systems reviewed & are unremarkable except as noted in HPI and below Exam Narrative: * GENERAL: Alert and oriented x 3 tearful female. No acute distress. * EYES: EOMI. No scleral icterus. PERRLA. * HEENT: Moist mucous membranes. Hoarseness noted with conversation * LUNGS:Diminished BLL otherwise clear to auscultation bilaterally. No accessory muscle use. * CARDIOVASCULAR: Regular rate and rhythm. No murmur. No JVD. S1-S2 * ABDOMEN: Soft, non tenderness and non-distended. No palpable masses. * EXTREMITIES: No edema. Non-tender * SKIN: No rashes or lesions. Skin warm, dry. * NEUROLOGIC: No focal neurological deficits. CN II-XII grossly intact * PSYCHIATRIC: Tearful mood and affect. Poor judgement and insight. No suicidal or homicidal ideation. Objective Data Vital Signs Vital Signs: Vital Signs - 24 hr 09/01/24 16:33 09/01/24 16:00 09/01/24 20:00 Temperature 97.7 F Pulse Rate 67 78 67 Respiratory Rate 16 16 Blood Pressure 110/64 Pulse Oximetry 96 96 Oxygen Delivery Room Air Room Air 09/01/24 23:55 09/02/24 00:00 09/02/24 00:11 Temperature 98.0 F Pulse Rate 67 81 81 Respiratory Rate 16 17 17 Blood Pressure 102/54 L Pulse Oximetry 96 96 98 Oxygen Delivery Room Air 09/02/24 05:45 09/02/24 06:00 09/02/24 08:44 Temperature Pulse Rate 81 80 64 Respiratory Rate 17 16 Blood Pressure Pulse Oximetry 95 97 Oxygen Delivery 09/02/24 08:00 09/02/24 11:41 Temperature 96.6 F L Pulse Rate 64 65 Respiratory Rate 16 16 Blood Pressure 94/43 L Pulse Oximetry 97 97 Oxygen Delivery Room Air Intake/Output Intake/Output: Intake & Output 08/30/24 08/31/24 09/01/24 09/02/24 23:59 23:59 23:59 23:59 Intake Total 1690 2070 870 Output Total 1700 Balance 1690 370 870 Meds/Results Medications: Active Medications Generic Name Dose Route Start Last Admin Trade Name Freq PRN Reason Stop Dose Admin Acetaminophen 650 mg 08/31/24 17:10 09/01/24 02:39 Acetaminophen 325 Mg Tablet PO 650 mg Q4H PRN Administration Mild Pain (1-3) or Fever Hydrocodone Bitart/Acetaminophen 1 tab 08/31/24 17:10 Hydrocodone/Acetaminophen (*Crx) 5-325 Mg Tablet PO Q4H PRN Moderate Pain (4-6) Albuterol 1 puff 08/31/24 21:00 09/02/24 08:40 Albuterol Sulfate (*Sp) Inhaler INHALATION 1 puff Q4HR MARLEE Administration Albuterol/Ipratropium 3 ml 08/31/24 18:30 09/02/24 11:39 Ipratropium 0.5 Mg/Albuterol Sulfate 2.5 Mg Ampul.Neb 3 Ml INHALATION 3 ml Q6HRT MARLEE Administration Benzocaine 1 lozenge 08/31/24 17:24 Benzocaine/Menthol (*Bkc) Lozenge PO PRN PRN Sore Throat Bupropion HCl 150 mg 09/01/24 09:00 09/02/24 08:42 Bupropion Hcl Xl (24 Hr) 150 Mg Tabcr PO 150 mg QAM MARLEE Administration Duloxetine HCl 60 mg 09/01/24 09:00 09/02/24 08:41 Duloxetine Hcl 30 Mg Capsule.Dr PO 60 mg QAM MARLEE Administration Guaifenesin 1,200 mg 08/31/24 21:00 09/02/24 08:41 Guaifenesin 12 Hr 600 Mg Tabcr PO 1,200 mg Q12HR MARLEE Administration Azithromycin 500 mg in 250 mls @ 250 mls/hr 09/01/24 15:00 09/01/24 15:45 Zithromax IVPB Infused Q24H MARLEE Infusion Ceftriaxone Sodium 1 gm in 50 mls @ 100 mls/hr 09/01/24 16:00 09/01/24 17:02 Rocephin 1 Gm/Ns 50 Ml IVPB Infused Q24H MARLEE Infusion Levothyroxine Sodium 100 mcg 09/01/24 06:30 09/02/24 05:48 Levothyroxine Sodium 100 Mcg Tablet PO 100 mcg DAILY@0630 MARLEE Administration Levothyroxine Sodium 75 mcg 09/01/24 06:30 09/02/24 05:48 Levothyroxine Sodium 75 Mcg Tablet PO 75 mcg DAILY@0630 MARLEE Administration Lisinopril 20 mg 09/01/24 09:00 09/02/24 08:43 Lisinopril 20 Mg Tablet PO 20 mg DAILY MARLEE Administration Loratadine 10 mg 08/31/24 21:00 09/01/24 20:06 Loratadine 10 Mg Tablet PO 10 mg QHS MARLEE Administration Mirabegron 50 mg 09/01/24 09:00 09/02/24 08:40 Mirabegron 25 Mg Er Tablet PO 50 mg DAILY MARLEE Administration Ondansetron HCl 4 mg 08/31/24 17:10 Ondansetron Inj 4 Mg/2 Ml Vial IV PUSH Q6H PRN Nausea And Vomiting Pantoprazole Sodium 40 mg 09/01/24 09:00 09/02/24 08:44 Pantoprazole 40 Mg Tablet PO 40 mg QAM MARLEE Administration Potassium Chloride 10 meq 09/01/24 09:00 09/02/24 08:43 Potassium Chloride 10 Meq Er Tablet PO 10 meq BID MARLEE Administration Prednisone 40 mg 08/31/24 17:20 09/02/24 08:41 Prednisone 20 Mg Tablet PO 40 mg DAILY@0800 MARLEE Administration Propranolol HCl 20 mg 09/01/24 09:00 09/02/24 08:44 Propranolol Hcl 20 Mg Tablet PO 20 mg BID MARLEE Administration Torsemide 20 mg 09/01/24 09:00 09/02/24 08:43 Torsemide 20 Mg Tablet PO 20 mg DAILY MARLEE Administration Radiology Results: ITS Impressions Chest X-Ray 08/31/24 15:27 IMPRESSION: 1. Airspace opacities in right mid and lower lung zones and left lower lung zone with slight worsening on the left, consistent with atelectasis/scarring versus pneumonia. 2. Small right pleural effusion. Labs Labs: Laboratory Results - last 24 hr 09/02/24 07:03 WBC 8.9 RBC 3.24 L Hgb 10.1 L Hct 31.5 L MCV 97.2 MCH 31.2 H MCHC 32.1 RDW 17.2 H Plt Count 105 L MPV 8.6 L Immature Gran % (Auto) 1.6 H Neut % (Auto) 69.6 Lymph % (Auto) 17.9 L Camp % (Auto) 9.6 Eos % (Auto) 1.1 Baso % (Auto) 0.2 Lymph # (Auto) 1.60 Camp # (Auto) 0.86 Eos # (Auto) 0.10 Baso # (Auto) 0.02 Abs Immat Gran (auto) 0.14 H Absolute Neuts (auto) 6.21 Absolute Nucleated RBC 0.00 Nucleated RBC % 0.0 Sodium 142 Potassium 3.6 Chloride 106 Carbon Dioxide 29 Anion Gap 7 BUN 16 Creatinine 0.88 Estim Creat Clear Calc 48 Estimated GFR > 60 Glucose 111 H Calculated Osmolality 296 H Calcium 8.1 L Total Bilirubin 1.6 H AST 38 H ALT 38 Alkaline Phosphatase 132 H Total Protein 6.3 L Albumin 2.1 L Quality VTE Prophylaxis VTE prophylaxis: mechanical ordered -Patient's previous records reviewed on admission -ER notes reviewed in detail on admission -discussed all findings and current treatment plan with patient/Family/POA -Consultations reviewed for recommendations -Patient's disposition for safe discharge discussed with protective services case worker Dictation performed by [employer] direct speech recognition software, therefore executive chef variants and typographical errors may occur. Hospitalist MIPS Advance Care Plan I have confirmed that the patient's Advanced Care Plan is present, code status is documented, or surrogate decision maker is listed in patient medical record.: Yes Medication Reconciliation I have utilized all available resources to obtain, update and review the patient s current medications (includes all prescriptions, OTC, herbals, cannabis, and nutritional supplements).: Yes The patient is not eligible for med reconciliation; the patient is in a emergent medical situation where delaying treatment would jeopardize the patients health.: No
[2024-09-02] MEDS: AZITHROMYCIN 500 MG/NS 250 ML 500 MG/250 ML BAG 250 MG IVPB (14:16)
[2024-09-02] MEDS: LORATADINE 10 MG TABLET PO (20:11)
[2024-09-03] VITALS (9 sets, daily range): BP systolic 95–107; BP diastolic 49–60; PULSE 65–68; RESP 16–20; TEMP 36.3–36.5; O2SAT 95–99
[2024-09-03] MEDS: IPRATROPIUM 0.5 MG/ALBUTEROL SULFATE 2.5 MG AMPUL.NEB 3 ML INHALATION ×3 (01:02→11:26)
[2024-09-03] MEDS: ALBUTEROL SULFATE (*SP) INHALER 1 PUFF INHALATION ×4 (01:04→13:10)
[2024-09-03 05:10] LABS: Basophils Absolute Auto 0.03 K/mm3 (0.00-0.10); Basophils Percent Auto 0.3 % (0.0-1.0); Eosinophils Absolute Auto 0.02 K/mm3 (0.02-0.50); Eosinophils Percent Auto 0.2 % (1.0-6.0); Hematocrit 32.3 % (35.0-42.0); Hemoglobin 10.4 g/dL (11.7-13.8); Immature Granulocyte Absolute 0.11 K/mm3 (0.00-0.00); Immature Granulocyte Percent A 1.1 % (0.0-0.0); Lymphocytes Absolute Auto 1.46 K/mm3 (1.10-4.50); Lymphocytes Percent Auto 14.8 % (18.0-42.0); Mean Corpuscular HGB Conc 32.2 g/dL (32-36); Mean Corpuscular Volume 96.4 fL (78.0-102.0); Mean Platelet Volume 8.7 fl (9.2-11.8); Monocytes Absolute Auto 0.67 K/mm3 (0.10-0.90); Monocytes Percent Auto 6.8 % (2.0-11.0); Neutrophils Absolute Auto 7.58 K/mm3 (1.70-7.20); Neutrophils Percent Auto 76.8 % (50.0-70.0); Platelet Count Result 107 K/mm3 (150-420); Red Blood Count 3.35 M/mm3 (4.20-5.40); Red Cell Distribution Width 17.1 % (11.6-14.4); White Blood Count 9.9 K/mm3 (4.8-10.8)
[2024-09-03 05:27] LABS: Alanine Aminotransferase 30 U/L (14-59); Albumin Level 2.3 g/dL (3.4-5.0); Alkaline Phosphatase 114 U/L (46-116); Anion Gap 6 mmol/L (4-12); Aspartate Amino Transferase 41 U/L (15-37); Bilirubin,Total 1.3 mg/dL (0.00-1.00); Blood Urea Nitrogen 21 mg/dL (7-18); Calcium 8.5 mg/dL (8.5-10.1); Carbon Dioxide 31 mmol/L (21-32); Chloride 105 mmol/L (98-108); Estimated CRCL calculation 45 ml/min; Estimated Glomerular Filt Rate 60; Glucose 112 mg/dL (70-99); Osmolality Calculated 298 mOsm/kg (285-295); Potassium 4.1 mmol/L (3.5-5.1); Sodium 142 mmol/L (136-145); Total Protein 6.6 g/dL (6.4-8.2)
[2024-09-03] MEDS: LEVOTHYROXINE SODIUM 75 MCG TABLET PO (06:01)
[2024-09-03] MEDS: LEVOTHYROXINE SODIUM 100 MCG TABLET PO (06:01)
[2024-09-03] MEDS: POTASSIUM CHLORIDE 10 MEQ ER TABLET PO (09:01)
[2024-09-03] MEDS: predniSONE 20 MG TABLET 40 MG PO (09:02)
[2024-09-03] MEDS: buPROPion HCL XL (24 HR) 150 MG TABCR PO (09:02)
[2024-09-03] MEDS: guaiFENesin 12 HR 600 MG TABCR 1200 MG PO (09:02)
[2024-09-03] MEDS: PROPRANOLOL HCL 20 MG TABLET PO (09:02)
[2024-09-03] MEDS: DULoxetine HCL 30 MG CAPSULE.DR 60 MG PO (09:02)
[2024-09-03] MEDS: MIRABEGRON 25 MG ER TABLET 50 MG PO (09:02)
[2024-09-03] MEDS: PANTOPRAZOLE 40 MG TABLET PO (09:02)
--- NOTE | 2024-09-03 11:04 | P.DS_ITS ---
DS: Admitting Diagnosis Discharge Date 09/03/2024 Admitting Diagnosis Pneumonia/ COPD exacerbation DS: Discharge Diagnosis Discharge Diagnosis (1) Community acquired pneumonia: Code(s): J18.9 - Pneumonia, unspecified organism Status: Acute (2) COPD (chronic obstructive pulmonary disease): Code(s): J44.9 - Chronic obstructive pulmonary disease, unspecified Status: Acute (3) Hepatitis C carrier: Code(s): B18.2 - Chronic viral hepatitis C Status: Acute (4) Thrombocytopenia: Code(s): D69.6 - Thrombocytopenia, unspecified Status: Acute (5) Hypothyroidism: Code(s): E03.9 - Hypothyroidism, unspecified Status: Acute (6) Benign hypertension: Code(s): I10 - Essential (primary) hypertension Status: Acute (7) Depression: Code(s): F32.9 - Major depressive disorder, single episode, unspecified Status: Acute (8) Anemia: Code(s): D64.9 - Anemia, unspecified Status: Acute Plan disposition: patient discharged to home DS: Summary Hospital Course Reason for hospitalization: pneumonia/ COPD exacerbation Hospital Course: SOB/productive cough/weakness x 2 weeks Narrative: Patient is a 64-year-old female who presented to the emergency department with complaints worsening productive cough, shortness of breath, Sore throat and generalized weakness. patient states she has a past medical history of hypertension, COPD, GERD, anxiety/ depression, hypothyroidism, and recently diagnosed with EZRA. patient states symptoms began 2 weeks ago she attempted to take OTC he is with no relief worsening of symptoms. denied any chest pain, nausea but did also endorse fevers x2 at home with chills. patient reports she has been very depressed lately due to the loss of her last year and recently losing her camper and home currently living with her sister, she states she has not been taking any of her home medications for quite some time less follow-up with her primary care physician was in January of 2024 at which time she still was not taking her medications she was newly diagnosed with EZRA and supposed to start CPAP. CXR showed airspace opacities in the right mid and lower lobe lung reece consistent with atelectasis versus pneumonia. patient was admitted to the medical unit for further evaluation and treatment of pneumonia and COPD exacerbation. she continued admission and was started on Rocephin and azithromycin with duo nebulizer treatments as well as mucolytic did start some steroids due to her history of smoking and appeared to have some exacerbation of COPD. Patient also found to have thrombocytopenia and anemia however there is a history noted hepatitis-C carrier repeat hepatitis panel pending she did have an elevated T bili and AST. also did a repeat TSH with history hypothyroidism patient reporting she has been noncompliant with her home medications for at least 6 months. TSH> 18 resumed her previous levothyroxine dosage. patient with poor oral intake some soft blood pressures discontinued patient's torsemide as well as her lisinopril. patient continued to improvement and remained on room air as well as afebrile lungs clear on auscultation on day of discharge and no further productive cough. patient did state she had no medications at home so did prescribe 2 months' worth medications until she can get back in with her primary care physician for follow-up however did educate and in encourage medication compliance. Patient overall feeling close to baseline she was discharged home with family. Status at Discharge Functional status at discharge: uses cane/walker Time Spent with Patient Time attestation: Total time spent providing and/or coordinating discharge services: Time spent: Greater than 30 minutes Exam Narrative: * GENERAL: Alert and oriented x 3 tearful female. No acute distress. * EYES: EOMI. No scleral icterus. PERRLA. * HEENT: Moist mucous membranes. Hoarseness noted with conversation * LUNGS:clear to auscultation bilaterally. No accessory muscle use. * CARDIOVASCULAR: Regular rate and rhythm. No murmur. No JVD. S1-S2 * ABDOMEN: Soft, non tenderness and non-distended. No palpable masses. * EXTREMITIES: No edema. Non-tender * SKIN: No rashes or lesions. Skin warm, dry. * NEUROLOGIC: No focal neurological deficits. CN II-XII grossly intact * PSYCHIATRIC: Tearful mood and affect. Poor judgement and insight. No suicidal or homicidal ideation. DS: Data Data Completed and Pending Labs on day of discharge: Labs from last 24 hours 09/03/24 05:01 WBC 9.9 RBC 3.35 L Hgb 10.4 L Hct 32.3 L MCV 96.4 MCH 31.0 MCHC 32.2 RDW 17.1 H Plt Count 107 L MPV 8.7 L Immature Gran % (Auto) 1.1 H Neut % (Auto) 76.8 H Lymph % (Auto) 14.8 L Gregory % (Auto) 6.8 Eos % (Auto) 0.2 L Baso % (Auto) 0.3 Lymph # (Auto) 1.46 Gregory # (Auto) 0.67 Eos # (Auto) 0.02 Baso # (Auto) 0.03 Abs Immat Gran (auto) 0.11 H Absolute Neuts (auto) 7.58 H Absolute Nucleated RBC 0.00 Nucleated RBC % 0.0 Sodium 142 Potassium 4.1 Chloride 105 Carbon Dioxide 31 Anion Gap 6 BUN 21 H Creatinine 0.93 Estim Creat Clear Calc 45 Estimated GFR 60 Glucose 112 H Calculated Osmolality 298 H Calcium 8.5 Total Bilirubin 1.3 H AST 41 H ALT 30 Alkaline Phosphatase 114 Total Protein 6.6 Albumin 2.3 L Preliminary micro results at discharge 08/31/24 15:12 Blood Culture - Preliminary Blood 08/31/24 15:13 Blood Culture - Preliminary Blood Imaging Radiologist's impression: Radiology Results: ITS Impressions Chest X-Ray 08/31/24 15:27 IMPRESSION: 1. Airspace opacities in right mid and lower lung zones and left lower lung zone with slight worsening on the left, consistent with atelectasis/scarring versus pneumonia. 2. Small right pleural effusion. Discharge Plan Discharge Attending physician on discharge: Yunior German Discharging Clinician: Desiree Smart Anticipated Discharge Date/Time: 09/03/24 10:48 Patient Disposition: Home, Self-Care Activity: may shower, unlimited and as tolerated Diet: heart healthy Discharge Instructions: You are being discharged after treatment for pneumonia and COPD exacerbation. During your hospitalization you were also found to have an elevated TSH and know history of hypothyroidism but have not been complaint with your Levothyroxine a new prescription has been sent to your pharmacy and I encourage medication compliance. I have prescribed antibiotic and steroids for your pneumonia and COPD please take as prescribed. you may also use acetaminophen for any mild pain aches or fever. I encourage increased hydration as well activity as supportive care at home continue to use your incentive spirometer while awake. I understand you have not been compliant medication and currently do not have any medications at home I have prescribed 2 months' worth allowing time to get back in with your primary care physician will you need to follow-up as soon as possible. I encouraged smoking cessation to lower the risk of pneumonia and COPD exacerbation, as well as, influenza and pneumonia vaccines if you begin to experience any worsening shortness of breath, chest pain or worsening of symptoms please seek medical attention I have attached education and information regarding pneumonia and COPD please review. How can you care for yourself at home? ? Keep track of any new symptoms or changes in your symptoms. ? Rest until you feel better. ? Be safe with medicines. Take your medicines exactly as prescribed. Call your doctor if you think you are having a problem with your medicine. ? Do not drive after taking a prescription pain medicine. ? Ensure to follow-up with primary care physician as indicated and provide updated medication list provided to you at discharge. When should you call for help? Call 911 anytime you think you may need emergency care. For example, call if: ? You passed out (lost consciousness). Call your doctor now or seek immediate medical care if: ? You have new symptoms like fever, difficulty breathing, Chest pain, vomiting, or rash. ? You have new or different pain. ? You are confused and are having trouble thinking clearly. ? Your symptoms are getting worse. Watch closely for changes in your health, and be sure to contact your doctor if: ? You do not get better as expected. Patient Instructions: Antibiotic Form, How to Stop Smoking (DC), Cigarette Smoking and Your Health (GEN), COPD (Chronic Obstructive Pulmonary Disease) (DC), Community Acquired Pneumonia (DC) Patient Language: Lithuanian Stand Alone Forms: General Discharge Information Follow-up/Referrals: Jevon Guadarrama, [Primary Care Provider] - Call for Appointment (Schedule an appointment FABIO) Discharge Medications: New prednisone 20 mg Tablet 40 mg PO DAILY@0800 Qty: 2 0RF loratadine 10 mg Tablet 10 mg PO QHS Qty: 60 0RF azithromycin 250 mg tablet 250 mg PO DAILY Qty: 3 0RF amoxicillin-pot clavulanate 875-125 mg tablet 1 tablet PO Q12H Qty: 10 0RF guaifenesin 600 mg tablet extended release 12hr 600 mg PO BID Qty: 14 0RF Continued levothyroxine 175 mcg tablet 175 mcg PO DAILY Qty: 90 0RF albuterol sulfate 90 mcg/actuation HFA aerosol inhaler See Rx Instructions .ROUTE .COMPLEX Qty: 8.5 5RF Dose Instruction: INHALE 1 PUFF BY MOUTH EVERY 4 HOURS NEEDED Rx Instructions: INHALE 1 PUFF BY MOUTH EVERY 4 HOURS NEEDED bupropion HCl 150 mg tablet extended release 24 hr 150 mg PO QAM Qty: 90 0RF Changed omeprazole 20 mg capsule,delayed release(DR/EC) 20 mg PO DAILY Qty: 60 0RF Rx Instructions: TAKE ONE CAPSULE (20 MG) BY MOUTH DAILY AT 9 AM duloxetine 60 mg capsule,delayed release(DR/EC) 60 mg PO DAILY Qty: 60 0RF Rx Instructions: TAKE ONE CAPSULE BY MOUTH DAILY AT 9 AM mirabegron [Myrbetriq] 50 mg tablet extended release 24 hr 50 mg PO DAILY Qty: 30 0RF Rx Instructions: TAKE ONE TABLET (50 MG) BY MOUTH DAILY AT 9 AM Discontinued torsemide 20 mg tablet 20 mg PO DAILY Rx Instructions: TAKE ONE TABLET (20MG) BY MOUTH DAILY AT 9 AM EVERY MORNING lisinopril 20 mg tablet 20 mg PO DAILY Rx Instructions: TAKE ONE TABLET BY MOUTH DAILY AT 9 AM EVERY DAY potassium chloride 10 mEq tablet extended release 10 meq PO BID Rx Instructions: TAKE ONE TABLET (10 MEQ) BY MOUTH TWICE DAILY @ 9AM & 5PM meloxicam 7.5 mg tablet 7.5 mg PO DAILY Rx Instructions: TAKE 1 TABLET BY MOUTH DAILY NEEDED FOR PAIN TAKE WITH FOOD propranolol 20 mg tablet 20 mg PO BID Rx Instructions: TAKE ONE TABLET BY MOUTH EVERY TWELVE HOURS @9AM-9PM Date of admission: 09/01/24 13:23 Primary Care Provider: Jevon Guadarrama Admitting Provider: Yunior German Attending physician on admission: Desiree Smart Condition: Stable Quality VTE Prophylaxis VTE prophylaxis: mechanical ordered -Patient's previous records reviewed on admission -ER notes reviewed in detail on admission -discussed all findings and current treatment plan with patient/Family/POA -Consultations reviewed for recommendations -Patient's disposition for safe discharge discussed with case liner Dictation performed by [employer] direct speech recognition software, therefore medication coordinator variants and typographical errors may occur. Hospitalist MIPS Heart Failure (Exclusion) Patient has history of Heart Transplant or Left Ventricular Assistive Device?: N o IF YES, STOP HERE Heart Failure (Qualifier) Patient has current or prior documentation of LVEF less than or equal to 40%, or mod/servere depressed LVSF?: No IF NO, STOP HERE
--- NOTE | 2024-09-03 14:50 | PCNEURO ---
All discharge instructions and education reviewed with patient. Patient states understanding. IV site removed, tip intact, Dressing applied to site. All belongings gathered together and sent home with patient. Patient denies any questions at this time. Medication sent home with patient. Patient accompanied to front door via wheelchair by this nurse, left via private vehicle with boyfriend.
[2024-09-04 04:02] LABS: Hepatitis B Surface Antigen NON-REACTIVE (NON-REACTIVE); Hepatitis C Virus Antibody REACTIVE (NON-REACTIVE)
[2024-09-04 04:13] LABS: Hepatitis A Antibody IgM NON-REACTIVE (NON-REACTIVE); Hepatitis B Core Antibody NON-REACTIVE (NON-REACTIVE)
[2024-09-05 15:09] LABS: Hepatitis C Viral RNA PCR <15 NOT DETECTED IU/mL (NOT DETECTED)
[2024-09-07 12:04] LABS: Hepatitis C Additional Testing YES
== END 2024-09-03 14:50 | disposition home or self-care (01) | DRG 194 ==
LOC: CHSED 15:37 → CHS2ND 15:55
PROVIDERS: Admitting Provider Internal Medicine; Emergency Provider Emergency Medicine; PCP Family Medicine; Visit Provider Nurse Practitioner Family
DX: J18.9 Pneumonia, unspecified organism (principal); J44.0 Chronic obstructive pulmonary disease with (acute) lower respiratory infection; I10 Essential (primary) hypertension; D69.6 Thrombocytopenia, unspecified; D64.9 Anemia, unspecified; E03.9 Hypothyroidism, unspecified; K21.9 Gastro-esophageal reflux disease without esophagitis; M10.9 Gout, unspecified; M19.90 Unspecified osteoarthritis, unspecified site; B18.2 Chronic viral hepatitis C; G47.33 Obstructive sleep apnea (adult) (pediatric); F32.A Depression, unspecified; F41.1 Generalized anxiety disorder; Z91.148 Patient's other noncompliance with medication regimen for other reason
CPT/HCPCS: 36415; 71045; 80053; 80074; 80307; 82607; 82746; 83540; 83550; 83605; 84439; 84443; 85025; 85055; 85610; 85730; 86140; 86803; 87040; 87070; 87081; 87205; 87637; 93005; 94640; 96361; 96365; 96375; 97161; 97530; 99285; A9270; G0378; J0456; J0696; J7120; J7512

== ENCOUNTER 2024-10-21 21:08 | Emergency (ER) | payer MEDICARE, SELFPAY ==
[2024-10-21] VITALS (8 sets, daily range): BP systolic 136–157; BP diastolic 62–81; PULSE 84–94; RESP 17–24; TEMP 37.3–37.6; O2SAT 97–100
--- NOTE | ~2024-10-21 | XR_ITS ---
CHEST RADIOGRAPH CLINICAL HISTORY: cough . COMPARISON: 08/31/2024 TECHNIQUE: Single portable view of the chest. FINDINGS The cardiomediastinal silhouette is unremarkable. Increased interstitial markings are identified bilaterally, findings suggesting mild pulmonary vascul ar congestion. The lungs are otherwise clear. Visualized osseous structures and soft tissues are unremarkable. IMPRESSION: Mild pulmonary vascular congestion, without focal infiltrate or effusion. Reviewed, dictated and finalized at location A. FOLDER
--- NOTE | 2024-10-21 21:21 | ED.SOB ---
HPI - SOB/Dyspnea General Chief Complaint: Shortness of Breath/Dyspnea Stated Complaint: cough/sob Time Seen by Provider: 10/21/24 21:21 Source: patient Mode of arrival: ambulatory Limitations: no limitations History of Present Illness HPI Narrative: 64 years old white female came to the emergency room by private car from home complaining of productive cough over the last 2 weeks. which is getting worse. She reports intermittent chills, no fever History of COPD, Patient report nasal and postnasal discharge Related Data Allergies Allergy/AdvReac Type Severity Reaction Status Date / Time No Known Allergies Allergy Verified 09/13/24 14:06 Review of Systems Review of Systems: All systems reviewed & are unremarkable except as noted in HPI and below PMFSH Past Medical History Medical History Arthritis Hypothyroidism Pneumonia Hand fracture, left Chronic GERD Gout Generalized anxiety disorder Benign hypertension Surgical History Surgical History Medial meniscus tear Social History Social History Smoking packs per day: 0.5 Smoking cigarettes per day: 10.0 Years smoked: 15 Smoking pack-years: 7.50 Smoking status: Current every day smoker Tobacco type: cigarettes Alcohol intake: never Alcohol use details: social Substance use: current Substance use type: marijuana Other substance usage details: states uses once a week. Do You Feel Safe in your Home?: Yes Lack of Transportation: No Lack of Food: Sometimes True Current Housing: I Have Housing Concerned About Future Housing: No Difficulty Paying Gas/Electric Bills: No Difficulty Paying for Meds: No Currently Unemployed: No Education: High School Diploma/GED Difficulty w/ Childcare or Family Care: No Living arrangements: with family Additional living arrangements comments: Occupation/Education: unemployed Gender identity (if verbalized by the patient): Female Spiritual care concerns: No Exam Narrative: General appearance: Well-developed, well-nourished Skin: Normal color Head: Normocephalic, nontraumatic Eyes: Clear conjunctiva ENT: Oropharynx normal, ears normal, nasal discharge Neck: Supple, nontender Chest and respiratory: Airway patent, no respiratory distress, no accessory muscle use, basilar rales bilaterally, no wheezing or rhonchi Heart: Regular rate/rhythm Abdomen: Soft, nontender, no organomegaly, quiet bowel sounds Neurologic: Alert and oriented ?3, PROCEDURE ANALYST is normal as tested, no gross motor deficit Course Vital Signs Vital signs: Vital Signs Pulse Rate 94 10/21/24 21:10 Pulse Oximetry 97 10/21/24 21:10 Oxygen Delivery Room Air 10/21/24 21:10 Temperature 37.6 C H 10/21/24 21:22 Pulse Rate 87 10/21/24 21:58 Respiratory Rate 22 H 10/21/24 21:58 Blood Pressure 142/73 H 10/21/24 21:46 Pulse Oximetry 100 10/21/24 21:58 Oxygen Delivery Room Air 10/21/24 21:22 MDM - SOB/Dyspnea MDM Narrative Medical decision making narrative: patient presents with productive cough for 2 weeks History of COPD and still smoking Vital signs on arrival showing blood pressure 157/77, temperature 37.6?, saturation on room air 97%. Physical examination showing a patient with intermittent coughing in, lung exam showing basilar rales bilaterally otherwise no wheezing or rhonchi Differential diagnosis include upper respiratory viral infection, pneumonia, COPD exacerbation less likely congestive heart failure Blood workup today includes CBC, CMP, BMP, blood culture x2, lactic acid showed total broken 2.6, AST 60, alkaline phosphatase is 138, BNP 148 Chest x-ray showed no acute abnormalities Differential Diagnosis Differential diagnosis: Likely other ( as above) Lab Data 10/21/24 22:02 10/21/24 22:02 Labs: Lab Results 10/21/24 10/21/24 Range/Units 21:22 22:02 WBC 7.5 (4.8-10.8) K/mm3 RBC 3.64 L (4.20-5.40) M/mm3 Hgb 11.4 L (11.7-13.8) g/dL Hct 34.0 L (35.0-42.0) % MCV 93.4 (78.0-102.0) fL MCH 31.3 H (27.0-31.0) pg MCHC 33.5 (32-36) g/dL RDW 14.7 H (11.6-14.4) % Plt Count 94 L (150-420) K/mm3 MPV 8.4 L (9.2-11.8) fl Immature Gran % (Auto) 0.4 H (0.0-0.0) % Neut % (Auto) 74.8 H (50.0-70.0) % Lymph % (Auto) 13.8 L (18.0-42.0) % [place] % (Auto) 8.0 (2.0-11.0) % Eos % (Auto) 2.5 (1.0-6.0) % Baso % (Auto) 0.5 (0.0-1.0) % Lymph # (Auto) 1.03 L (1.10-4.50) K/mm3 [place] # (Auto) 0.60 (0.10-0.90) K/mm3 Eos # (Auto) 0.19 (0.02-0.50) K/mm3 Baso # (Auto) 0.04 (0.00-0.10) K/mm3 Abs Immat Gran (auto) 0.03 H (0.00-0.00) K/mm3 Absolute Neuts (auto) 5.57 (1.70-7.20) K/mm3 Absolute Nucleated RBC 0.00 (0.00-0.00) K/mm3 Nucleated RBC % 0.0 (0-0.0) % % Immature Plt Fraction 0.9 L (1.0-7.0) % Sodium 140 (136-145) mmol/L Potassium 3.7 (3.5-5.1) mmol/L Chloride 103 (98-108) mmol/L Carbon Dioxide 28 (21-32) mmol/L Anion Gap 9 (4-12) mmol/L BUN 11 (7-18) mg/dL Creatinine 0.84 (0.55-1.02) mg/dL Estim Creat Clear Calc 43 ml/min Estimated GFR > 60 (59 - ) Glucose 95 (70-99) mg/dL Calculated Osmolality 289 (285-295) mOsm/kg Lactic Acid 0.8 (0.4-2.0) mmol/L Calcium 8.7 (8.5-10.1) mg/dL Total Bilirubin 2.6 H (0.00-1.00) mg/dL AST 60 H (15-37) U/L ALT 45 (14-59) U/L Alkaline Phosphatase 138 H (46-116) U/L NT-Pro-B Natriuret Pep 148 H (0-125) pg/mL Total Protein 7.4 (6.4-8.2) g/dL Albumin 3.0 L (3.4-5.0) g/dL Influenza A (RT-PCR) Negative (Negative) Influenza B (RT-PCR) Negative (Negative) RSV (RT-PCR) Negative (Negative) SARS-CoV-2 RNA (RT-PCR) Negative (Negative) Imaging Data Radiologist's impression: Impressions Chest X-Ray 10/21/24 21:52 IMPRESSION: Mild pulmonary vascular congestion, without focal infiltrate or effusion. Critical Care Time Critical Care Time Critical Care Time: No Discharge Plan Discharge Clinical Impression: COPD with acute exacerbation Patient Disposition: Home, Self-Care Condition: Stable Instructions: Antibiotic Form, COPD (Chronic Obstructive Pulmonary Disease) (ED) Additional Instructions: Return if symptoms are worsening , call your family physician for appointment, take Tylenol as as needed for aches and pain, continue home medications. Patient Language: Micronesian Prescriptions: New azithromycin [Zithromax Z-Cory] 250 mg tablet 250 mg PO DAILY PRN (Reason: copd) 5 Days Qty: 6 0RF prednisone 20 mg tablet 40 mg PO DAILY 5 Days Qty: 10 0RF budesonide-formoterol [Breyna] 80-4.5 mcg/actuation HFA aerosol inhaler 2 puff inhalation Q12H Qty: 10.2 0RF benzonatate 200 mg capsule 200 mg PO TID PRN (Reason: cough) Qty: 30 0RF No Action loratadine 10 mg Tablet 10 mg PO QHS Qty: 60 0RF omeprazole 20 mg capsule,delayed release(DR/EC) 20 mg PO DAILY Qty: 60 0RF Rx Instructions: TAKE ONE CAPSULE (20 MG) BY MOUTH DAILY AT 9 AM bupropion HCl 150 mg tablet extended release 24 hr 150 mg PO QAM Qty: 90 0RF duloxetine 60 mg capsule,delayed release(DR/EC) 60 mg PO DAILY Qty: 60 0RF Rx Instructions: TAKE ONE CAPSULE BY MOUTH DAILY AT 9 AM mirabegron [Myrbetriq] 50 mg tablet extended release 24 hr 50 mg PO DAILY Qty: 30 0RF Rx Instructions: TAKE ONE TABLET (50 MG) BY MOUTH DAILY AT 9 AM levothyroxine 175 mcg tablet 175 mcg PO DAILY Qty: 90 0RF albuterol sulfate 90 mcg/actuation HFA aerosol inhaler See Rx Instructions .ROUTE .COMPLEX Qty: 6.7 5RF Dose Instruction: INHALE 1 PUFF BY MOUTH EVERY 4 HOURS NEEDED Rx Instructions: INHALE 1 PUFF BY MOUTH EVERY 4 HOURS NEEDED Follow-up/Referrals: Jevon Guadarrama DO [Primary Care Provider] -
[2024-10-21] MEDS: predniSONE 20 MG TABLET 60 MG PO (21:40)
[2024-10-21] MEDS: IPRATROPIUM 0.5 MG/ALBUTEROL SULFATE 2.5 MG AMPUL.NEB 3 ML INHALATION (21:42)
[2024-10-21 22:09] LABS: Basophils Absolute Auto 0.04 K/mm3 (0.00-0.10); Basophils Percent Auto 0.5 % (0.0-1.0); Eosinophils Absolute Auto 0.19 K/mm3 (0.02-0.50); Eosinophils Percent Auto 2.5 % (1.0-6.0); Hemoglobin 11.4 g/dL (11.7-13.8); Immature Granulocyte Absolute 0.03 K/mm3 (0.00-0.00); Immature Granulocyte Percent A 0.4 % (0.0-0.0); Immature Platelet Fraction Pct 0.9 % (1.0-7.0); Lymphocytes Absolute Auto 1.03 K/mm3 (1.10-4.50); Lymphocytes Percent Auto 13.8 % (18.0-42.0); Mean Corpuscular HGB Conc 33.5 g/dL (32-36); Mean Corpuscular Hemoglobin 31.3 pg (27.0-31.0); Mean Corpuscular Volume 93.4 fL (78.0-102.0); Mean Platelet Volume 8.4 fl (9.2-11.8); Neutrophils Absolute Auto 5.57 K/mm3 (1.70-7.20); Neutrophils Percent Auto 74.8 % (50.0-70.0); Platelet Count Result 94 K/mm3 (150-420); Red Blood Count 3.64 M/mm3 (4.20-5.40); Red Cell Distribution Width 14.7 % (11.6-14.4); White Blood Count 7.5 K/mm3 (4.8-10.8)
[2024-10-21 22:21] LABS: SARS-CoV-2 RNA PCR Negative (Negative)
[2024-10-21 22:22] LABS: Influenza A QL RT-PCR Negative (Negative); Influenza B QL RT-PCR Negative (Negative); RSV RNA, RT-PCR Negative (Negative)
[2024-10-21 22:27] LABS: Lactic Acid Reflex 0.8 mmol/L (0.4-2.0)
[2024-10-21 22:28] LABS: Alanine Aminotransferase 45 U/L (14-59); Alkaline Phosphatase 138 U/L (46-116); Anion Gap 9 mmol/L (4-12); Aspartate Amino Transferase 60 U/L (15-37); Bilirubin,Total 2.6 mg/dL (0.00-1.00); Blood Urea Nitrogen 11 mg/dL (7-18); Calcium 8.7 mg/dL (8.5-10.1); Carbon Dioxide 28 mmol/L (21-32); Chloride 103 mmol/L (98-108); Estimated CRCL calculation 43 ml/min; Estimated Glomerular Filt Rate > 60; Glucose 95 mg/dL (70-99); NT Pro B Type Natriuretic Pept 148 pg/mL (0-125); Osmolality Calculated 289 mOsm/kg (285-295); Potassium 3.7 mmol/L (3.5-5.1); Sodium 140 mmol/L (136-145); Total Protein 7.4 g/dL (6.4-8.2)
--- NOTE | 2024-10-23 18:17 | PC.NURSE ---
Preliminary blood culture report: no growht to date
--- NOTE | 2024-10-28 12:33 | PC.NURSE ---
FINAL BLOOD CULTURE REPORT; NO GROWTH AFTER 5 DAYS
== END 2024-10-21 22:54 | disposition home or self-care (01) ==
PROVIDERS: Emergency Provider Emergency Medicine; PCP Family Medicine
DX: J44.1 Chronic obstructive pulmonary disease with (acute) exacerbation (principal); I10 Essential (primary) hypertension; E03.9 Hypothyroidism, unspecified; K21.9 Gastro-esophageal reflux disease without esophagitis; M10.9 Gout, unspecified; F41.1 Generalized anxiety disorder; F17.210 Nicotine dependence, cigarettes, uncomplicated; F12.90 Cannabis use, unspecified, uncomplicated; Z79.51 Long term (current) use of inhaled steroids; Z20.822 Contact with and (suspected) exposure to COVID-19
CPT/HCPCS: 36415; 71045; 80053; 83605; 83880; 85025; 85055; 87040; 87637; 94640; 99284; J7512

== ENCOUNTER 2024-12-24 12:12 | Observation (INO) | payer MEDICARE, SELFPAY ==
[2024-12-24] VITALS (17 sets, daily range): BP systolic 112–136; BP diastolic 58–67; PULSE 76–90; RESP 16–22; TEMP 37–37.7; O2SAT 96–100; BMI 23.0
--- NOTE | ~2024-12-24 | XR_ITS ---
XR chest 2V Ordering provider: Asif Sherman MD History: 64 years Female with . sob . Comparison: October 21, 2024 FINDINGS: MEDIASTINUM: The cardiac silhouette is not enlarged. LUNGS: No effusions or pneumothorax. Opacification in the left lung base suggestive of atelectasis ve rsus pneumonia. Underlying emphysematous changes. OTHER: No free air under the diaphragm. Degenerative changes of the spine. IMPRESSION: Left basal pneumonia. Reviewed, dictated and finalized at location A. PING TEAM LEADER IMPRESSION: Left basal pneumonia.
--- NOTE | 2024-12-24 12:20 | ECG_ITS ---
Test Date: 2024-12-24 12:48:20 Measurements Intervals [place] Rate: 83 P: 64 [place]: 159 QRS: 62 QRSD: 98 T: 78 QT: 371 QTc: 436 Interpretive Statements SINUS RHYTHM WITH OCCASIONAL SUPRAVENTRICULAR PREMATURE COMPLEXES Compared to ECG 08/31/2024 15:01:26 Ventricular premature complex(es) no longer present Electronically Signed On 12-25-2024 15:28:47 BREAKFAST MANAGER by Loc De La Torre M.D.
--- NOTE | 2024-12-24 12:21 | ED_ITS ---
HPI - SOB/Dyspnea General Chief Complaint: Shortness of Breath/Dyspnea Stated Complaint: cough, short of breath Time Seen by Provider: 12/24/24 12:18 Source: patient Mode of arrival: ambulatory Limitations: no limitations History of Present Illness HPI Narrative: Patient is a 64-year-old female with cough and congestion and short of breath for the past week. She had pneumonia back in September and was hospitalized. She has COPD. MD elicited complaint: shortness of breath, cough and anxiety Pertinent past history: COPD and pneumonia Onset (ago): week(s) ( One) Context: recent illness and anxiety Timing: constant Severity: moderate Exacerbating factors: coughing, inspiration, cold air and deep breaths Relieving factors: bronchodilators ( home updraft) Known history of: COPD and recurrent pneumonia Associated symptoms: wheezing, sputum production and chest congestion Treatment prior to arrival: bronchodilator Related Data Home oxygen amount: none Allergies Allergy/AdvReac Type Severity Reaction Status Date / Time No Known Allergies Allergy Verified 12/24/24 12:47 Review of Systems 2 Review of Systems: All systems reviewed & are unremarkable except as noted in HPI and below Constitutional: Constitutional: Reports no additional constitutional complaints Eyes: Eyes: Reports no additional eye complaints ENT: Reports system reviewed and no additional complaints, except as documented Cardiovascular: Cardiovascular: Reports no additional cardiovascular complaints Respiratory: Respiratory: Reports no additional respiratory complaints Gastrointestinal: Gastrointestinal: Reports no additional gastrointestinal complaints Genitourinary: Genitourinary: Reports no additional female genitourinary complaints Musculoskeletal: Musculoskeletal: Reports no additional musculoskeletal complaints Integumentary/Breasts: Skin/Breast: Reports system reviewed and no additional complaints, except as docu Neurologic: Reports system reviewed and no additional complaints, except as documented Psychiatric: Psychiatric: Reports no additional psychiatric complaints Endocrine: Endocrine: Reports no additional endocrine complaints Hematologic/Lymphatic: Hematologic/Lymphatic: Reports no additional hematologic/lymphatic complaints Allergic/Immunologic: Allergic/Immunologic: Reports no additional allergic/immunologic complaints PMFSH Past Medical History Medical History Arthritis Hypothyroidism Pneumonia Hand fracture, left Chronic GERD Gout Generalized anxiety disorder Benign hypertension Surgical History Surgical History Medial meniscus tear Social History Social History Smoking packs per day: 0.5 Smoking cigarettes per day: 10.0 Years smoked: 15 Smoking pack-years: 7.50 Smoking status: Current every day smoker Tobacco type: cigarettes Alcohol intake: never Alcohol use details: social Substance use: current Substance use type: marijuana Other substance usage details: states uses once a week. Do You Feel Safe in your Home?: Yes Lack of Transportation: No Lack of Food: Sometimes True Current Housing: I Have Housing Concerned About Future Housing: No Difficulty Paying Gas/Electric Bills: No Difficulty Paying for Meds: No Currently Unemployed: No Education: High School Diploma/GED Difficulty w/ Childcare or Family Care: No Living arrangements: with family Additional living arrangements comments: Occupation/Education: unemployed Gender identity (if verbalized by the patient): Female Spiritual care concerns: No Exam 2 Const: General: ill appearing Nutritional Appearance: well nourished O rientation/consciousness: patient oriented x3 Limitations: no limitations HENMT: Head: normal to inspection Ears: external ears normal F paul/Nose/Sinus: Normal external nose present Eyes: Conjunctivae: conjunctivae normal Pupils: Equal, round and reactive pupils present EOM: EOMs intact bilaterally Neck: Neck: normal visual inspection Chest: Chest palpation & inspection: normal inspection of the chest Resp: Effort & Inspection: normal respiratory effort, labored, no retractions, tachypneic and no use of accessory muscles Auscultation: not clear to auscultation bilaterally, crackles ( bilateral mid to lower lung reece), no rales, rhonchi ( diffuse), no wheezes, breath sounds present and diminished lung sounds ( diffuse) Cardio: Rate: regular rate Rhythm: regular rhythm Heart sounds: no murmurs GI: Inspection: non-distended GI Palp: Yes Soft to palpation and No Tenderness to palpation present (GI) Auscultation: normal bowel sounds : General: Yes bladder normal to palpation Back/Spine/Pelvis: Back: no CVA tenderness Skin: General skin exam: normal color Rashes: no rashes Wounds: no wounds Neuro: General: patient oriented x3, moves all extremities, no meningeal signs, no focal motor deficits and CN's II-XI intact bilaterally Cranial nerves: Yes Nystagmus not present Speech: normal speech Gait exam (Neuro): Normal gait present Extrem: General: normal to inspection Psych: Mental Status: mental status grossly normal Affect: normal affect Attitude: cooperative Course Vital Signs Vital signs: Vital Signs Temperature 37.6 C 12/24/24 12:12 Pulse Rate 88 12/24/24 12:12 Respiratory Rate 22 H 12/24/24 12:12 Blood Pressure 136/62 12/24/24 12:12 Pulse Oximetry 97 12/24/24 12:12 Oxygen Delivery Room Air 12/24/24 12:12 Temperature 37.6 C 12/24/24 12:12 Pulse Rate 83 12/24/24 12:51 Respiratory Rate 20 12/24/24 12:51 Blood Pressure 125/66 12/24/24 12:38 Pulse Oximetry 100 12/24/24 13:15 Oxygen Delivery Room Air 12/24/24 12:38 MDM - SOB/Dyspnea MDM Narrative Medical decision making narrative: patient is a 64-year-old female with recurrent pneumonia symptoms at this time. We will do a septic workup at this time. Will give her supportive treatment. Lab Data Attestation: I reviewed the patient's lab results. 12/24/24 12:44 12/24/24 12:44 Labs: Lab Results 12/24/24 12/24/24 Range/Units 12:18 12:44 WBC Pending RBC Pending Hgb Pending Hct Pending MCV Pending MCH Pending MCHC Pending RDW Pending Plt Count Pending MPV Pending Immature Gran % (Auto) Pending Neut % (Auto) Pending Lymph % (Auto) Pending [place] % (Auto) Pending Eos % (Auto) Pending Baso % (Auto) Pending Lymph # (Auto) Pending [place] # (Auto) Pending Eos # (Auto) Pending Baso # (Auto) Pending Abs Immat Gran (auto) Pending Absolute Neuts (auto) Pending Absolute Nucleated RBC Pending Nucleated RBC % Pending Sodium Pending Potassium Pending Chloride Pending Carbon Dioxide Pending Anion Gap Pending BUN Pending Creatinine Pending Estim Creat Clear Calc Pending Estimated GFR Pending Glucose Pending Calculated Osmolality Pending Lactic Acid 2.3 H (0.4-2.0) mmol/L Calcium Pending Total Bilirubin Pending AST Pending ALT Pending Alkaline Phosphatase Pending Troponin I Pending NT-Pro-B Natriuret Pep Pending Total Protein Pending Albumin Pending Influenza A (RT-PCR) Pending Influenza B (RT-PCR) Pending RSV (RT-PCR) Pending SARS-CoV-2 RNA (RT-PCR) Pending Imaging Data Attestation: I personally reviewed and interpreted this imaging study as follows: Radiologist's impression: Chest x-ray shows left basilar pneumonia Discharge Plan Discharge Clinical Impression: Influenza A Pneumonia Qualifiers: Pneumonia type: due to unspecified organism Laterality: left Lung location: l ower lobe of lung Qualified Code(s): J18.9 - Pneumonia, unspecified organism Patient Disposition: [facility] Condition: Stable Patient Language: Yakut Prescriptions: No Action azithromycin [Zithromax Z-Cory] 250 mg tablet 250 mg PO DAILY PRN (Reason: copd) 5 Days Qty: 6 0RF prednisone 20 mg tablet 40 mg PO DAILY 5 Days Qty: 10 0RF budesonide-formoterol [Breyna] 80-4.5 mcg/actuation HFA aerosol inhaler 2 puff inhalation Q12H Qty: 10.2 0RF benzonatate 200 mg capsule 200 mg PO TID PRN (Reason: cough) Qty: 30 0RF loratadine 10 mg Tablet 10 mg PO QHS Qty: 60 0RF mirabegron [Myrbetriq] 50 mg tablet extended release 24 hr 50 mg PO DAILY Qty: 30 0RF Rx Instructions: TAKE ONE TABLET (50 MG) BY MOUTH DAILY AT 9 AM albuterol sulfate 90 mcg/actuation HFA aerosol inhaler See Rx Instructions .ROUTE .COMPLEX Qty: 6.7 5RF Dose Instruction: INHALE 1 PUFF BY MOUTH EVERY 4 HOURS NEEDED Rx Instructions: INHALE 1 PUFF BY MOUTH EVERY 4 HOURS NEEDED levothyroxine 175 mcg tablet See Rx Instructions .ROUTE .COMPLEX Qty: 90 11RF Dose Instruction: TAKE ONE TABLET (175 MCG) BY MOUTH DAILY AT 8 AM Rx Instructions: TAKE ONE TABLET (175 MCG) BY MOUTH DAILY AT 8 AM bupropion HCl 150 mg tablet extended release 24 hr See Rx Instructions .ROUTE .COMPLEX Qty: 90 3RF Dose Instruction: TAKE ONE TABLET BY MOUTH DAILY AT 9 AM EVERY MORNING Rx Instructions: TAKE ONE TABLET BY MOUTH DAILY AT 9 AM EVERY MORNING omeprazole 20 mg capsule,delayed release(DR/EC) See Rx Instructions .ROUTE .COMPLEX Qty: 90 1RF Dose Instruction: TAKE 1 CAPSULE BY MOUTH EVERY DAY Rx Instructions: TAKE 1 CAPSULE BY MOUTH EVERY DAY duloxetine 60 mg capsule,delayed release(DR/EC) See Rx Instructions .ROUTE .COMPLEX Qty: 90 0RF Dose Instruction: TAKE 1 CAPSULE BY MOUTH EVERY DAY Rx Instructions: TAKE 1 CAPSULE BY MOUTH EVERY DAY Follow-up/Referrals: Jevon Guadarrama DO [Primary Care Provider] - Time of Disposition: 13:32
[2024-12-24] MEDS: methylPREDNISolone SOD SUCC 125 MG VIAL IM (12:36)
[2024-12-24] MEDS: IPRATROPIUM 0.5 MG/ALBUTEROL SULFATE 2.5 MG AMPUL.NEB 3 ML INHALATION (12:39)
[2024-12-24 13:00] LABS: Hematocrit 33.5 % (35.0-42.0); Hemoglobin 10.9 g/dL (11.7-13.8); Mean Corpuscular HGB Conc 32.5 g/dL (32-36); Mean Corpuscular Hemoglobin 30.4 pg (27.0-31.0); Mean Corpuscular Volume 93.6 fL (78.0-102.0); Mean Platelet Volume 9.9 fl (9.2-11.8); Platelet Count Result 44 K/mm3 (150-420); Red Blood Count 3.58 M/mm3 (4.20-5.40); Red Cell Distribution Width 15.2 % (11.6-14.4); White Blood Count 2.6 K/mm3 (4.8-10.8)
[2024-12-24 13:21] LABS: Lactic Acid Reflex 2.3 mmol/L (0.4-2.0)
--- OUTSIDE RECORDS SUMMARY | 2024-12-24 13:32 | XMS_ITS | Clinical Summary ---
Author Organization [facility] Address [facility] [place] [address] Care Team Providers Care Kettle Loader Name Role Phone Jackie Sanches FRONT DESK HOST Primary Care Provider [phone] Allergies No known active allergies Medications amitriptyline 50 MG tablet Take 1 tablet by mouth nightly. Active FLUoxetine 20 MG capsule Take 1 capsule by mouth in the morning. Active levothyroxine 100 MCG tablet Take 100 mcg by mouth in the morning. 2 Active lisinopril 20 MG tablet Take 1 tablet by mouth in the morning. Active omeprazole 20 MG capsule Take 1 capsule by mouth in the morning. Active propranolol 20 MG tablet Take 20 mg by mouth every 12 (twelve) hours. 2 Active meloxicam 7.5 MG tablet Take 1 tablet by mouth daily. 2 Active albuterol sulfate HFA 108 (90 Base) MCG/ACT inhaler INHALE 1 PUFF BY MOUTH EVERY 4 HOURS NEEDED FOR SHORTNESS OF BREATH OR WHEEZING 2 Active Active Problems Problem Noted Date Diagnosed Date Acute medial meniscus tear o f right knee, subsequent encounter 03/18/2022 Family History Medical History Relation Comments Heart Attack Brother 2 Arthritis Father Gout Father Hypertension Mother Thyroid Disease Sister 1 Thyroid Disease Sister 2 Relation Status Comments Brother 1 Alive Brother 2 Brother 3 Alive Father Mother Sister 1 Alive Sister 2 Alive Social History Tobacco Use Types Packs/Day Years Used Date Smoking Tobacco: Some Days Cigarettes 0.3 30 Smokeless Tobacco: Never Tobacco Cessation:Ready to Q uit: Not Asked; Counseling Given: Not Answered Alcohol Use Standard Drinks/Week Comments Yes 0 (1 standard drink = 0.6 oz pur e alcohol) occasionally Comments No Sex and Gender Information Value Date Recorded Sex Assigned at Not on file Legal Sex Female 9:26 PM CDT Gender Identity Not on file Sexual Orientation Not on file Last Filed Vital Signs Vital Sign Reading Time Taken Comments Blood Pressure 117/85 09/09/2022 11:45 AM BISQUE TILE BURNER Pulse 59 09/09/2022 11:45 AM BISQUE TILE BURNER Temperature 35.8 C (96.5 F) 09/09/2022 11:45 AM BISQUE TILE BURNER Respiratory Rate 20 09/09/2022 11:45 AM BISQUE TILE BURNER Oxygen Saturation 100% 09/09/2022 11:45 AM BISQUE TILE BURNER Inhaled Oxygen Concentration - - Weight 86.2 kg (190 lb) 10/05/2022 2:38 PM BISQUE TILE BURNER Height 154.9 cm (5' 1 ) 10/05/2022 2:38 PM BISQUE TILE BURNER Body Mass Index 35.9 10/05/2022 2:38 PM BISQUE TILE BURNER Plan of Treatment Health Maintenance Due Date Last Done Comments Colorectal Cancer Screening Colonoscopy (10 Years) 1958 Pneumococcal Vaccine: 65+ Years (1 of 2 - PCV) 1964 Hepatitis C 1976 DTaP, Tdap and Td Vaccines ( 1 - Tdap) 1977 Mammogram Screening 1998 Zoster Vaccines (2 of 2) 10/10/2020 08/15/2020 Dexa Scan (General) 2023 COVID-19 Vaccine (4 - 2023-2 5 season) 2024 10/05/2021, 04/04/2021, 03/14/2021 Influenza Adult (#1) 2024 07/22/2021, 08/15/2019, 08/15/2018 RSV Immunization or 60+ Years (1 - 1-dose 75+ series) 2033 Meningococcal B Vaccine Aged Out No l onger eligible based on patient's age to complete this topic Meningococcal Vaccine Aged Out No foreign meredith eligible based on patient's age to complete this topic RSV Immunizations Under 20 Months Aged Out No longer eligible b ased on patient's age to complete this topic Insurance AETNA Care Teams Kettle Loader Relationship Specialty Start Date End Date Jackie Sanches FNP [address] [place] [address] PCP - General NURSE PRACTITIONER 03/09/22
[2024-12-24 13:34] LABS: Alanine Aminotransferase 36 U/L (14-59); Albumin Level 2.7 g/dL (3.4-5.0); Alkaline Phosphatase 101 U/L (46-116); Anion Gap 10 mmol/L (4-12); Aspartate Amino Transferase 59 U/L (15-37); Bilirubin,Total 1.3 mg/dL (0.00-1.00); Blood Urea Nitrogen 12 mg/dL (7-18); Calcium 7.9 mg/dL (8.5-10.1); Carbon Dioxide 28 mmol/L (21-32); Chloride 100 mmol/L (98-108); Estimated CRCL calculation 38 ml/min; Estimated Glomerular Filt Rate 57; Glucose 123 mg/dL (70-99); NT Pro B Type Natriuretic Pept 151 pg/mL (0-125); Osmolality Calculated 286 mOsm/kg (285-295); Potassium 3.1 mmol/L (3.5-5.1); Sodium 138 mmol/L (136-145); Total Protein 6.9 g/dL (6.4-8.2); Troponin I 14.9 ng/L (0.00-60.4)
[2024-12-24 13:45] LABS: Influenza A QL RT-PCR Positive (Negative); Influenza B QL RT-PCR Negative (Negative); RSV RNA, RT-PCR Negative (Negative); SARS-CoV-2 RNA PCR Negative (Negative)
[2024-12-24] MEDS: POTASSIUM CHLORIDE 20 MEQ ER TABLET 40 MEQ PO (13:45)
[2024-12-24] MEDS: SODIUM CHLORIDE 0.9% IV 1,000 ML 999 ML IV CONT (13:47)
[2024-12-24] MEDS: AZITHROMYCIN 500 MG/NS 250 ML 500 MG/250 ML BAG 250 MG IVPB (13:48)
[2024-12-24 13:54] LABS: Band Neutrophils Percent 1 % (0-6); Lymphocytes Absolute Manual 0.62 K/mm3 (1.1-4.5); Lymphocytes Percent Manual 24 % (18-44); Monocytes Absolute Manual 0.36 K/mm3 (0.1-0.90); Monocytes Percent Manual 14 % (3-9); Neutrophils Absolute Manual 1.61 K/mm3 (1.7-7.2); Neutrophils Percent Manual 61 % (46-73); Total Cells Counted 100
[2024-12-24 13:55] LABS: Platelet Estimate Decreased (Adequate); Schistocytes None Seen
--- OUTSIDE RECORDS SUMMARY | 2024-12-24 14:16 | XMS_ITS | Clinical Summary ---
Author Organization [facility] Address [facility] [place] [address] Care Team Providers Care Leadership Intern Name Role Phone Jackie Sanches TOWER TRUCK DRIVER Primary Care Provider [phone] Allergies No known active allergies Medications amitriptyline [...] Comments Blood Pressure 117/85 09/09/2022 11:45 AM STEVEDORING SUPERVISOR Pulse 59 09/09/2022 11:45 AM STEVEDORING SUPERVISOR Temperature 35.8 C (96.5 F) 09/09/2022 11:45 AM STEVEDORING SUPERVISOR Respiratory Rate 20 09/09/2022 11:45 AM STEVEDORING SUPERVISOR Oxygen Saturation 100% 09/09/2022 11:45 AM STEVEDORING SUPERVISOR Inhaled Oxygen Concentration - - Weight 86.2 kg (190 lb) 10/05/2022 2:38 PM STEVEDORING SUPERVISOR Height 154.9 cm (5' 1 ) 10/05/2022 2:38 PM STEVEDORING SUPERVISOR Body Mass Index 35.9 10/05/2022 2:38 PM STEVEDORING SUPERVISOR Plan of Treatment Health Maintenance Due Date [...] complete this topic Insurance AETNA Care Teams Leadership Intern Relationship Specialty Start Date End Date Jackie Sanches FNP [address] [place] [place] [address] PCP - General NURSE PRACTITIONER 03/09/22
--- NOTE | 2024-12-24 14:30 | PC.NURSE ---
Recieved med list from Dr. Rodriguez office. Spoke with patient who states, I have not been taking my meds in a while because my boyfriend moves them around in the bedroom and I cannot find them. Explained she informed ED she had had nebulizers at home that was not working, asked patient if she had nebulizer at home with the medications. Patient states, No I do not have the machine or the meds, I used my friends machine and med one time and it didn't help my breathing.
--- NOTE | 2024-12-24 15:08 | PC.NURSE ---
Pt arrived on the floor at 1430 from the ED. She is alert and oriented x3. Pt states she has not been taking her medications and does not know what they are. IV fluids running at present. Pt asks for crackers because she feels nauseated.
[2024-12-24 15:55] LABS: Reflex Lactic Acid Yes or No Add Lactic
[2024-12-24 16:05] LABS: Magnesium 1.6 mg/dL (1.8-2.4)
[2024-12-24] MEDS: OSELTAMIVIR PHOSPHATE 75 MG CAPSULE PO (17:08)
[2024-12-24 17:32] LABS: Lactic Acid 1.5 mmol/L (0.4-2.0)
[2024-12-24] MEDS: LACTATED RINGERS 1,000 ML 100 ML IV CONT (18:00)
--- NOTE | 2024-12-24 18:02 | PC.NURSE ---
Emilee Smart, DISTRICT PLANT ENGINEER/Hospitalist, notified of lactic acid result. No new orders.
[2024-12-24] MEDS: HYDROcodone/acetaminophen (*CRX) 5-325 MG TABLET 1 TAB PO (20:22)
[2024-12-24] MEDS: LORATADINE 10 MG TABLET PO (20:22)
[2024-12-24] MEDS: guaiFENesin 12 HR 600 MG TABCR PO (20:22)
[2024-12-25] VITALS: BP 124/69; PULSE 77; RESP 18; TEMP 36.6; O2SAT 96
[2024-12-25] MEDS: LACTATED RINGERS 1,000 ML 100 ML IV CONT ×2 (04:09→13:48)
[2024-12-25] MEDS: LEVOTHYROXINE SODIUM 100 MCG, LEVOTHYROXINE SODIUM 75 MCG 175 MCG PO (05:56)
[2024-12-25 08:00] VITALS: BP 135/72; PULSE 69; RESP 14; TEMP 35.8; O2SAT 97
[2024-12-25 08:24] LABS: Hematocrit 32.7 % (35.0-42.0); Hemoglobin 10.3 g/dL (11.7-13.8); Immature Platelet Fraction Pct 3.1 % (1.0-7.0); Mean Corpuscular HGB Conc 31.5 g/dL (32-36); Mean Corpuscular Volume 95.3 fL (78.0-102.0); Mean Platelet Volume 9.7 fl (9.2-11.8); Platelet Count Result 34 K/mm3 (150-420); Red Blood Count 3.43 M/mm3 (4.20-5.40); Red Cell Distribution Width 15.2 % (11.6-14.4); White Blood Count 1.6 K/mm3 (4.8-10.8)
[2024-12-25 08:55] LABS: Alanine Aminotransferase 32 U/L (14-59); Albumin Level 2.6 g/dL (3.4-5.0); Alkaline Phosphatase 111 U/L (46-116); Anion Gap 8 mmol/L (4-12); Aspartate Amino Transferase 49 U/L (15-37); Bilirubin,Total 0.9 mg/dL (0.00-1.00); Blood Urea Nitrogen 14 mg/dL (7-18); Carbon Dioxide 27 mmol/L (21-32); Chloride 106 mmol/L (98-108); Estimated CRCL calculation 46 ml/min; Estimated Glomerular Filt Rate > 60; Glucose 177 mg/dL (70-99); Osmolality Calculated 296 mOsm/kg (285-295); Potassium 4.5 mmol/L (3.5-5.1); Sodium 141 mmol/L (136-145); Total Protein 6.6 g/dL (6.4-8.2)
[2024-12-25 08:56] LABS: Magnesium 1.8 mg/dL (1.8-2.4); Thyroid Stimulating Hormone 16.03 uIU/mL (0.36-3.74)
[2024-12-25] MEDS: MIRABEGRON 25 MG ER TABLET 50 MG PO (09:20)
[2024-12-25] MEDS: PANTOPRAZOLE 40 MG TABLET PO (09:21)
[2024-12-25] MEDS: DULoxetine HCL 30 MG CAPSULE.DR 60 MG PO (09:21)
[2024-12-25] MEDS: buPROPion HCL XL (24 HR) 150 MG TABCR PO (09:21)
[2024-12-25] MEDS: guaiFENesin 12 HR 600 MG TABCR PO ×2 (09:21→21:11)
[2024-12-25] MEDS: OSELTAMIVIR PHOSPHATE 30 MG CAPSULE PO ×2 (09:21→21:11)
--- NOTE | 2024-12-25 11:27 | P.HP_ITS ---
H&P: HPI History of Present Illness Date/Time: 12/25/24 11:27 Chief Complaint: SOB/productive cough/weakness x 2 weeks Narrative: Patient is a 64-year-old female who presented to the emergency department with complaints worsening productive cough, shortness of breath, generalized weakness. Patient reports a past medical history of hypertension, COPD, GERD, anxiety/ depression, hypothyroidism, hepatitis-C, anemia, vertigo and recently diagnosed with EZRA. patient has been noncompliant with home medications due to social problems at home. patient had recently been hospitalized around 3 months ago for pneumonia in September at which time she states she is just not improved since then. Denied any chest pain, nausea but did also endorse SOB, Cough, fatigue and weakness. On previous admission patient had reported reports she has been very depressed lately due to the loss of her last year and recently losing her camper and home currently living with her sister, she states she has not been taking any of her home medications for quite some time. Patient today reports she left her boyfriend and she has been staying with her friend and once again has not been taking her medications. CXR Left basal pneumonia. patient's vital stable not requiring oxygen however patient reporting severe weakness and unsteady gait WBC on admission was 2.6 with platelets at 44 likely secondary to patient's hepatitis an acute infection. Patient was admitted to the medical unit for further evaluation and treatment of pneumonia and Influenza. Review of Systems Review of Systems: All systems reviewed & are unremarkable except as noted in HPI and below PMFSH Past Medical History Medical History Arthritis Hypothyroidism Pneumonia Hand fracture, left Chronic GERD Gout Generalized anxiety disorder Benign hypertension Surgical History Surgical History Medial meniscus tear Social History Social History Smoking packs per day: 1 Smoking cigarettes per day: 20.0 Years smoked: 15 Smoking pack-years: 15.00 Smoking status: Light tobacco smoker Tobacco type: cigarettes Second hand tobacco smoke exposure: Yes Alcohol intake: never Alcohol use details: social Substance use: never Substance use type: does not use Other substance usage details: states uses once a week. Do You Feel Safe in your Home?: No Lack of Transportation: YES Lack of Food: Never True Current Housing: I Have Housing Concerned About Future Housing: No Difficulty Paying Gas/Electric Bills: YES Difficulty Paying for Meds: YES Currently Unemployed: YES Education: High School Diploma/GED Difficulty w/ Childcare or Family Care: No Living arrangements: with family Additional living arrangements comments: Occupation/Education: unemployed Gender identity (if verbalized by the patient): Female Spiritual care concerns: No Meds Home Medications and Allergies Home Medications ?Medication ?Instructions ?Recorded ?Confirmed ?Type loratadine 10 mg tablet 10 mg PO QHS #60 tabs 09/03/24 12/24/24 Rx mirabegron 50 mg tablet,extended 50 mg PO DAILY #30 tabs 09/03/24 12/24/24 Rx release 24 hr (Myrbetriq) albuterol sulfate 90 mcg/actuation See Rx Instructions .Route 09/24/24 12/24/24 Rx aerosol inhaler .COMPLEX #6.7 grams budesonide-formoterol HFA 80 2 puff inhalation Q12H #10.2 grams 10/21/24 12/24/24 Rx mcg-4.5 mcg/actuation aerosol inhaler (Breyna) levothyroxine 175 mcg tablet See Rx Instructions .Route 10/30/24 12/24/24 Rx .COMPLEX #90 tabs bupropion HCl 150 mg 24 hr tablet, See Rx Instructions .Route 11/23/24 12/24/24 Rx extended release .COMPLEX #90 tabs omeprazole 20 mg capsule,delayed See Rx Instructions .Route 12/10/24 12/24/24 Rx release .COMPLEX #90 caps duloxetine 60 mg capsule,delayed See Rx Instructions .Route 12/17/24 12/24/24 Rx release .COMPLEX #90 caps Allergies Allergy/AdvReac Type Severity Reaction Status Date / Time No Known Allergies Allergy Verified 12/24/24 12:47 Vital Signs Vital Signs - 24 hr 12/24/24 12:12 12/24/24 12:15 12/24/24 12:38 Temperature 99.6 F Pulse Rate 88 76 Respiratory Rate 22 H 20 Blood Pressure 136/62 125/66 Pulse Oximetry 97 97 98 Oxygen Delivery Room Air Room Air Room Air 12/24/24 12:40 12/24/24 12:51 12/24/24 13:10 Temperature Pulse Rate 81 83 Respiratory Rate 20 Blood Pressure Pulse Oximetry 99 100 98 Oxygen Delivery 12/24/24 13:15 12/24/24 13:22 12/24/24 13:30 Temperature Pulse Rate 81 Respiratory Rate 16 Blood Pressure 127/60 Pulse Oximetry 100 100 98 Oxygen Delivery 12/24/24 13:31 12/24/24 13:45 12/24/24 13:46 Temperature Pulse Rate 77 90 Respiratory Rate 16 18 Blood Pressure 125/61 123/62 Pulse Oximetry 96 100 Oxygen Delivery 12/24/24 14:00 12/24/24 14:00 12/24/24 14:01 Temperature 99.8 F H 98.6 F Pulse Rate 82 76 Respiratory Rate 16 20 Blood Pressure 112/58 L 118/67 Pulse Oximetry 98 97 Oxygen Delivery Room Air 12/24/24 15:00 12/24/24 15:44 12/24/24 20:00 Temperature Pulse Rate 76 Respiratory Rate 20 Blood Pressure Pulse Oximetry 97 97 97 Oxygen Delivery Room Air Room Air Room Air 12/25/24 00:00 12/25/24 08:00 Temperature 97.8 F 96.5 F L Pulse Rate 77 69 Respiratory Rate 18 14 Blood Pressure 124/69 135/72 Pulse Oximetry 96 97 Oxygen Delivery Room Air Room Air Exam Narrative: * GENERAL: No acute distress. Reports weakness * EYES: PERRLA. * HEENT: Moist mucous membranes. * LUNGS:Diminished LLL. No accessory muscle use. non-productive cough * CARDIOVASCULAR: Regular rate and rhythm. No murmur. No JVD. S1-S2 * ABDOMEN: Soft, non tenderness and non-distended. * EXTREMITIES: No edema. Non-tender * SKIN: No rashes or lesions. Skin warm, dry. * NEUROLOGIC: No focal neurological deficits. CN II-XII grossly intact * PSYCHIATRIC: Tearful mood and affect. Poor judgement and insight. H&P: Results Labs Labs: Short CBC 12/24/24 12/25/24 Range/Units 12:44 08:09 WBC 2.6 L 1.6 L (4.8-10.8) K/mm3 Hgb 10.9 L 10.3 L (11.7-13.8) g/dL Hct 33.5 L 32.7 L (35.0-42.0) % Plt Count 44 L 34 L (150-420) K/mm3 BMP 12/24/24 12/25/24 12:44 08:09 Sodium 138 141 Potassium 3.1 L 4.5 Chloride 100 106 Carbon Dioxide 28 27 BUN 12 14 Creatinine 0.97 0.88 Glucose 123 H 177 H Calcium 7.9 L 8.0 L Cardiac Enzymes 12/24/24 Range/Units 12:44 Troponin I 14.9 (0.00-60.4) ng/L Liver Function 12/24/24 12/25/24 Range/Units 12:44 08:09 Total Bilirubin 1.3 H 0.9 (0.00-1.00) mg/dL AST 59 H 49 H (15-37) U/L ALT 36 32 (14-59) U/L Alkaline Phosphatase 101 111 (46-116) U/L Albumin 2.7 L 2.6 L (3.4-5.0) g/dL Imaging Chest x-ray: Radiologist's impression: XR chest 2V Ordering provider: Asif Sherman MD History: 64 years Female with . sob . Comparison: October 21, 2024 FINDINGS: MEDIASTINUM: The cardiac silhouette is not enlarged. LUNGS: No effusions or pneumothorax. Opacification in the left lung base suggestive of atelectasis versus pneumonia. Underlying emphysematous changes. OTHER: No free air under the diaphragm. Degenerative changes of the spine. IMPRESSION: Left basal pneumonia. Assessment and Plan Assessment and plan (1) Community acquired pneumonia: Code(s): J18.9 - Pneumonia, unspecified organism Status: Acute Assessment and Plan: * Pneumonia * WBC 2.6> 1.6 * Chest x-ray Left basal pneumonia * incentive spirometry while awake. * influenza positive * Rocephin and azithromycin * mucolytics * antipyretics for fever (2) Influenza: Code(s): J11.1 - Influenza due to unidentified influenza virus with other respiratory manifestations Status: Acute Assessment and Plan: * Tamiflu * antipyretics * supportive care * IV fluids (3) Hepatitis C carrier: Code(s): B18.2 - Chronic viral hepatitis C Status: Acute Assessment and Plan: * medical record shows carrier * PLT down to 34 * repeat hepatitis panel Positive for C antibodies (4) Thrombocytopenia: Code(s): D69.6 - Thrombocytopenia, unspecified Status: Acute Assessment and Plan: * SEE ABOVE likely secondary to hepatitis and acute infection * PLT 44>34 * monitor for any bleeding * Transfuse FFP if <15 (5) Hypothyroidism: Code(s): E03.9 - Hypothyroidism, unspecified Status: Acute Assessment and Plan: * HX of but noncompliant with medication has not taken for months * TSH greater than 16.03 * resumed her previous levothyroxine prescription (6) Benign hypertension: Code(s): I10 - Essential (primary) hypertension Status: Acute Assessment and Plan: * Stable * Resumed lisinopril (7) Depression: Code(s): F32.9 - Major depressive disorder, single episode, unspecified Status: Acute Assessment and Plan: * still reporting depression after her passed recent social difficulties * patient had not been taking her antidepressants that were prescribed * resumed her antidepressants at this time * she denied any suicidal ideations (8) Anemia: Code(s): D64.9 - Anemia, unspecified Status: Acute Assessment and Plan: * likely secondary to hepatitis as well as poor nutrition * No evidence of bleeding * stable Hgb at 9.1 * will monitor transfuse PRBC <7.0 (9) Leukopenia: Code(s): D72.819 - Decreased white blood cell count, unspecified Status: Acute Assessment and Plan: * WBC 2.6>1.6 * 09/2024: 7.5 * Likely due to acute infection * isolation (10) Non compliance w medication regimen: Code(s): Z91.148 - Patient's other noncompliance with medication regimen for other reason Status: Acute Assessment and Plan: * Patient non-compliant with medications will need prescriptions on all medications at discharge. * Educated on need for compliance Plan Code status: Full code per patient DVT prophylaxis: Lovenox Stress ulcer prophylaxis: SCD PT/OT notes: Pending Disposition: patient was admitted to the medical unit for treatment of pneumonia and influenza patient reports she has been noncompliant with her medications at due to social events in life. Patient states she lost her home but is currently staying with her friend. PT OT ordered for evaluation patient states she currently uses a walker for ambulation. Quality VTE Prophylaxis VTE prophylaxis: mechanical ordered -Patient's previous records reviewed on admission -ER notes reviewed in detail on admission -discussed all findings and current treatment plan with patient/Family/POA -Consultations reviewed for recommendations -Patient's disposition for safe discharge discussed with keycase assembler Dictation performed by [employer] direct speech recognition software, therefore production line mechanic variants and typographical errors may occur. Hospitalist MIPS Advance Care Plan I have confirmed that the patient's Advanced Care Plan is present, code status is documented, or surrogate decision maker is listed in patient medical record.: Yes Medication Reconciliation I have utilized all available resources to obtain, update and review the patients current medications (includes all prescriptions, OTC, herbals, cannabis, and nutritional supplements).: Yes The patient is not eligible for med reconciliation; the patient is in a emergent medical situation where delaying treatment would jeopardize the patients health.: No
[2024-12-25] MEDS: AZITHROMYCIN 250 MG TABLET 500 MG PO (13:41)
[2024-12-25 16:35] VITALS: BP 129/73; PULSE 79; RESP 16; TEMP 36.3; O2SAT 97
[2024-12-25] MEDS: AMOXICILLIN/CLAVULANATE K 875-125 MG TAB 1 TABLET PO (21:11)
[2024-12-25] MEDS: LORATADINE 10 MG TABLET PO (21:11)
[2024-12-26] VITALS: BP 122/63; PULSE 80; RESP 16; TEMP 36.3; O2SAT 96
[2024-12-26] MEDS: LACTATED RINGERS 1,000 ML 100 ML IV CONT (00:33)
[2024-12-26 05:31] LABS: Hematocrit 29.5 % (35.0-42.0); Hemoglobin 9.5 g/dL (11.7-13.8); Immature Platelet Fraction Pct 2.9 % (1.0-7.0); Mean Corpuscular HGB Conc 32.2 g/dL (32-36); Mean Corpuscular Hemoglobin 30.4 pg (27.0-31.0); Mean Corpuscular Volume 94.2 fL (78.0-102.0); Mean Platelet Volume 10.7 fl (9.2-11.8); Platelet Count Result 38 K/mm3 (150-420); Red Blood Count 3.13 M/mm3 (4.20-5.40); Red Cell Distribution Width 14.9 % (11.6-14.4); White Blood Count 3.5 K/mm3 (4.8-10.8)
[2024-12-26 05:47] LABS: Alanine Aminotransferase 57 U/L (14-59); Alkaline Phosphatase 125 U/L (46-116); Anion Gap 1 mmol/L (4-12); Aspartate Amino Transferase 63 U/L (15-37); Bilirubin,Total 0.8 mg/dL (0.00-1.00); Blood Urea Nitrogen 19 mg/dL (7-18); Calcium 8.2 mg/dL (8.5-10.1); Carbon Dioxide 32 mmol/L (21-32); Chloride 107 mmol/L (98-108); Potassium 3.7 mmol/L (3.5-5.1); Sodium 140 mmol/L (136-145); Total Protein 6.1 g/dL (6.4-8.2)
[2024-12-26 05:53] LABS: Estimated CRCL calculation 61 ml/min; Estimated Glomerular Filt Rate > 60; Glucose 110 mg/dL (70-99); Osmolality Calculated 293 mOsm/kg (285-295)
[2024-12-26] MEDS: LEVOTHYROXINE SODIUM 100 MCG, LEVOTHYROXINE SODIUM 75 MCG 175 MCG PO (06:33)
[2024-12-26 08:00] VITALS: BP 116/62; PULSE 72; RESP 14; TEMP 35.7; O2SAT 98
[2024-12-26] MEDS: OSELTAMIVIR PHOSPHATE 30 MG CAPSULE PO (09:47)
[2024-12-26] MEDS: buPROPion HCL XL (24 HR) 150 MG TABCR PO (09:47)
[2024-12-26] MEDS: PANTOPRAZOLE 40 MG TABLET PO (09:47)
[2024-12-26] MEDS: AZITHROMYCIN 250 MG TABLET 500 MG PO (09:47)
[2024-12-26] MEDS: MIRABEGRON 25 MG ER TABLET 50 MG PO (09:47)
[2024-12-26] MEDS: AMOXICILLIN/CLAVULANATE K 875-125 MG TAB 1 TABLET PO (09:47)
[2024-12-26] MEDS: guaiFENesin 12 HR 600 MG TABCR PO (09:48)
[2024-12-26] MEDS: DULoxetine HCL 30 MG CAPSULE.DR 60 MG PO (09:48)
--- NOTE | 2024-12-26 10:57 | P.PNIM_ITS ---
Progress Note: A&P Assessment and Plan (1) Community acquired pneumonia: Code(s): J18.9 - Pneumonia, unspecified organism Status: Acute Assessment and Plan: * Pneumonia * WBC 2.6> 1.6 * Chest x-ray Left basal pneumonia * incentive spirometry while awake. * influenza positive * Rocephin and azithromycin * mucolytics * antipyretics for fever (2) Influenza: Code(s): J11.1 - Influenza due to unidentified influenza virus with other respiratory manifestations Status: Acute Assessment and Plan: * Tamiflu * antipyretics * supportive care * IV fluids (3) Hepatitis C carrier: Code(s): B18.2 - Chronic viral hepatitis C Status: Acute Assessment and Plan: * medical record shows carrier * PLT down to 34 * repeat hepatitis panel Positive for C antibodies (4) Thrombocytopenia: Code(s): D69.6 - Thrombocytopenia, unspecified Status: Acute Assessment and Plan: * SEE ABOVE likely secondary to hepatitis and acute infection * PLT 44>34 * monitor for any bleeding * Transfuse FFP if <15 (5) Hypothyroidism: Code(s): E03.9 - Hypothyroidism, unspecified Status: Acute Assessment and Plan: * HX of but noncompliant with medication has not taken for months * TSH greater than 16.03 * resumed her previous levothyroxine prescription (6) Benign hypertension: Code(s): I10 - Essential (primary) hypertension Status: Acute Assessment and Plan: * Stable * Resumed lisinopril (7) Depression: Code(s): F32.9 - Major depressive disorder, single episode, unspecified Status: Acute Assessment and Plan: * still reporting depression after her passed recent social difficulties * patient had not been taking her antidepressants that were prescribed * resumed her antidepressants at this time * she denied any suicidal ideations (8) Anemia: Code(s): D64.9 - Anemia, unspecified Status: Acute Assessment and Plan: * likely secondary to hepatitis as well as poor nutrition * No evidence of bleeding * stable Hgb at 9.1 * will monitor transfuse PRBC <7.0 (9) Leukopenia: Code(s): D72.819 - Decreased white blood cell count, unspecified Status: Acute Assessment and Plan: * WBC 2.6>1.6 * 09/2024: 7.5 * Likely due to acute infection * isolation (10) Non compliance w medication regimen: Code(s): Z91.148 - Patient's other noncompliance with medication regimen for other reason Status: Acute Assessment and Plan: * Patient non-compliant with medications will need prescriptions on all medications at discharge. * Educated on need for compliance Plan Code status: Full code per patient DVT prophylaxis: Lovenox Stress ulcer prophylaxis: SCD PT/OT notes: Pending Disposition: patient was admitted to the medical unit for treatment of pne umonia and influenza patient reports she has been noncompliant with her medications at due to social events in life. Patient states she lost her home but is currently staying with her friend. PT OT ordered for evaluation patient states she currently uses a walker for ambulation. Subjective Date/time seen: 12/26/24 10:57 Review of Systems Review of Systems: All systems reviewed & are unremarkable except as noted in HPI and below Objective Data Vital Signs Vital Signs: Vital Signs - 24 hr 12/25/24 16:35 12/26/24 00:00 Temperature 97.3 F L 97.4 F L Pulse Rate 79 80 Respiratory Rate 16 16 Blood Pressure 129/73 122/63 Pulse Oximetry 97 96 Oxygen Delivery Room Air Room Air Intake/Output Intake/Output: Intake & Output 12/23/24 12/24/24 12/25/24 12/26/24 23:59 23:59 23:59 23:59 Intake Total 1690 4260 1350 Output Total 450 Balance 1690 4260 900 Meds/Results Medications: Active Medications Generic Name Dose Route Start Last Admin Trade Name Freq PRN Reason Stop Dose Admin Acetaminophen 650 mg 12/24/24 15:42 Acetaminophen 325 Mg Tablet PO Q4H PRN Mild Pain (1-3) or Fever Hydrocodone Bitart/Acetaminophen 1 tab 12/24/24 15:42 12/24/24 20:22 Hydrocodone/Acetaminophen (*Crx) 5-325 Mg Tablet PO 1 tab Q4H PRN Administration Moderate Pain (4-6) Albuterol/Ipratropium 3 ml 12/24/24 15:45 Ipratropium 0.5 Mg/Albuterol Sulfate 2.5 Mg Ampul.Neb 3 Ml INHALATION Q6HRT PRN Shortness Of Breath Amoxicillin/Clavulanate Potassium 1 tablet 12/25/24 21:00 12/26/24 09:47 Amoxicillin/Clavulanate K 875-125 Mg Tab PO 1 tablet Q12HR MARLEE Administration Azithromycin 500 mg 12/25/24 13:00 12/26/24 09:47 Azithromycin 250 Mg Tablet PO 500 mg DAILY MARLEE Administration Bupropion HCl 150 mg 12/25/24 09:00 12/26/24 09:47 Bupropion Hcl Xl (24 Hr) 150 Mg Tabcr PO 150 mg QAM MARLEE Administration Duloxetine HCl 60 mg 12/25/24 09:00 12/26/24 09:48 Duloxetine Hcl 30 Mg Capsule.Dr PO 60 mg QAM MARLEE Administration Guaifenesin 600 mg 12/24/24 21:00 12/26/24 09:48 Guaifenesin 12 Hr 600 Mg Tabcr PO 600 mg Q12HR MARLEE Administration Lactated Ringer's 1,000 mls @ 100 mls/hr 12/24/24 15:45 12/26/24 00:33 Lr - Lactated Ringers Iv IV CONT 100 mls/hr .Q10H MARLEE Administration Levothyroxine Sodium 100 mcg/ 175 mcg 12/25/24 06:30 12/26/24 06:33 Levothyroxine Sodium 75 mcg PO 175 mcg DAILY@0630 MARLEE Administration Loratadine 10 mg 12/24/24 21:00 12/25/24 21:11 Loratadine 10 Mg Tablet PO 10 mg QHS MARLEE Administration Mirabegron 50 mg 12/25/24 09:00 12/26/24 09:47 Mirabegron 25 Mg Er Tablet PO 50 mg DAILY MARLEE Administration Ondansetron HCl 4 mg 12/24/24 15:42 Ondansetron Inj 4 Mg/2 Ml Vial IV PUSH Q6H PRN Nausea And Vomiting Oseltamivir Phosphate 30 mg 12/25/24 09:00 12/26/24 09:47 Oseltamivir Phosphate 30 Mg Capsule PO 12/29/24 09:01 30 mg Q12HR MARLEE Administration Pantoprazole Sodium 40 mg 12/25/24 09:00 12/26/24 09:47 Pantoprazole 40 Mg Tablet PO 40 mg QAM MARLEE Administration Radiology Results: ITS Impressions Chest X-Ray 12/24/24 12:36 IMPRESSION: Left basal pneumonia. Labs Labs: Laboratory Results - last 24 hr 12/26/24 05:22 WBC 3.5 L RBC 3.13 L Hgb 9.5 L Hct 29.5 L MCV 94.2 MCH 30.4 MCHC 32.2 RDW 14.9 H Plt Count 38 L MPV 10.7 % Immature Plt Fraction 2.9 Sodium 140 Potassium 3.7 Chloride 107 Carbon Dioxide 32 Anion Gap 1 L BUN 19 H Creatinine 0.64 Estim Creat Clear Calc 61 Estimated GFR > 60 Glucose 110 H Calculated Osmolality 293 Calcium 8.2 L Total Bilirubin 0.8 AST 63 H ALT 57 Alkaline Phosphatase 125 H Total Protein 6.1 L Quality VTE Prophylaxis VTE prophylaxis: mechanical ordered
--- NOTE | 2024-12-26 11:38 | P.DS_ITS ---
DS: Admitting Diagnosis Discharge Date 12/26/24 Admitting Diagnosis Community-acquired pneumonia Influenza A Hepatitis C carrier Thrombocytopenia Hypothyroidism BPH Depression Anemia Leukopenia Non compliance with medication regimen DS: Discharge Diagnosis Discharge Diagnosis (1) Community acquired pneumonia: Code(s): J18.9 - Pneumonia, unspecified organism Status: Acute (2) Influenza: Code(s): J11.1 - Influenza due to unidentified influenza virus with other respiratory manifestations Status: Acute (3) Hepatitis C carrier: Code(s): B18.2 - Chronic viral hepatitis C Status: Acute (4) Thrombocytopenia: Code(s): D69.6 - Thrombocytopenia, unspecified Status: Acute (5) Hypothyroidism: Code(s): E03.9 - Hypothyroidism, unspecified Status: Acute (6) Benign hypertension: Code(s): I10 - Essential (primary) hypertension Status: Acute (7) Depression: Code(s): F32.9 - Major depressive disorder, single episode, unspecified Status: Acute (8) Anemia: Code(s): D64.9 - Anemia, unspecified Status: Acute (9) Leukopenia: Code(s): D72.819 - Decreased white blood cell count, unspecified Status: Acute (10) Non compliance w medication regimen: Code(s): Z91.148 - Patient's other noncompliance with medication regimen for other reason Status: Acute DS: Summary Hospital Course Reason for hospitalization: Community-acquired pneumonia Influenza A Hepatitis C carrier Thrombocytopenia Hypothyroidism BPH Depression Anemia Leukopenia Non compliance with medication regimen Hospital Course: This is a 64-year-old female with a significant past medical history of hypertension, COPD, GERD, anxiety, depression, hypothyroidism, hepatitis-C, anemia, vertigo, EZRA, noncompliance with home medication who came in with shortness of breath, productive cough, weakness x2 weeks. Workup in the hospital included a chest x-ray which showed left basal pneumonia. Initial labs showed a white blood cell count of 2.6, RBC 3.58, platelet count 44, hemoglobin 10.9, potassium 3.1, sugars ranging 123-177, lactic acid 2.3> 1.5, magnesium 1.6, total bili 1.3, AST 59, proBNP 151, TSH 16.03. Respiratory panel was positive for influenza A. Blood cultures were obtained and were negative on final read. EKG showed sinus rhythm with occasional supraventricular premature complexes with a rate of 83, QTC 436. Patient was transition to Augmentin, azithromycin, Tamiflu. She is stable for discharge at this time. She will need to finish all her antibiotic and Tamiflu then follow up with her primary care physician in 1 week. She was also instructed to follow up with Hematology/Oncology for her severe pancytopenia which is likely due to her hepatitis C history implicated by influenza A. Final diagnosis: Community-acquired pneumonia, influenza a, severe pancytopenia Status at Discharge Cognitive/behavioral status at discharge: Alert oriented x4 Functional status at discharge: independent ambulation Overall status at discharge: patient is progressing back to baseline Time Spent with Patient Time attestation: Total time spent providing and/or coordinating discharge services: Time spent: Greater than 30 minutes Exam Narrative: General: In no acute distress, well nourished Head: atraumatic, no encephalopathy Eyes: EOMI, PERRLA, sclera clear ENT: moist mucous membranes, nasal passages clear Neck: supple, no JVD, no adenopathy, trachea midline Cardiac: Normal S1 and S2. No murmur, gallops or friction rubs, peripheral pulses intact. Respiratory: Diminished breath sounds, no adventitious lung sounds, currently on room air Gastrointestinal: soft, non-distended, non-tender, normoactive bowel sounds. : voiding without difficulty. Extremities: moves all extremities well, no edema Skin: clean, dry, intact. No wounds or lesions. Neuro: Alert and oriented x4, cranial nerves intact, no neuro deficits. Psych: normal mood, normal affect, interactive DS: Data Data Completed and Pending Completed studies during hospitalization: Chest x-ray Pending studies at discharge: None Labs on day of discharge: Labs from last 24 hours 12/26/24 05:22 WBC 3.5 L RBC 3.13 L Hgb 9.5 L Hct 29.5 L MCV 94.2 MCH 30.4 MCHC 32.2 RDW 14.9 H Plt Count 38 L MPV 10.7 % Immature Plt Fraction 2.9 Sodium 140 Potassium 3.7 Chloride 107 Carbon Dioxide 32 Anion Gap 1 L BUN 19 H Creatinine 0.64 Estim Creat Clear Calc 61 Estimated GFR > 60 Glucose 110 H Calculated Osmolality 293 Calcium 8.2 L Total Bilirubin 0.8 AST 63 H ALT 57 Alkaline Phosphatase 125 H Total Protein 6.1 L Albumin Pending Preliminary micro results at discharge 12/24/24 12:44 Blood Culture - Preliminary Blood 12/24/24 12:50 Blood Culture - Preliminary Blood Procedures/Treatments: None Discharge Plan Discharge Attending physician on discharge: Yunior German Consulting providers: Desiree Smart; Judy Mary; Loc De La Torre; Dallin Nielson Discharging Clinician: Judy Mary Anticipated Discharge Date/Time: 12/26/24 11:28 Patient Disposition: Home, Self-Care Activity: as tolerated Diet: as tolerated Discharge Instructions: * Finish all of your antibiotics and Tamiflu as directed, even if you are feeling better * Obtain lab in 1 week to recheck your white blood cells, red blood cells, and platelet count * Follow up with primary care doctor in 1 week * You will need to see a Return To Factory Clerk for your worsening pancytopenia. This is a condition when your bone marrow is suppressed by illness and likely your liver disease. Your white blood cells, red blood cells and platelets are severely low. It is important to make this appointment and do recommended follow ups. * Your thyroid levels, TSH was elevated as well. Make sure you take your Synthroid on a regularly scheduled basis. To keep your thyroid levels in good range, it requires medication compliance. Patient Instructions: Antibiotic Form, Amoxicillin/Clavulanate Potassium (By mouth), Azithromycin (By mouth), Hypothyroidism (DC), Influenza (DC), Flu Shot (Vaccine) for Adults (DC), Fall Prevention for Older Adults (ED), Pneumonia (DC), Pancytopenia (DC) Patient Language: Tajik Stand Alone Forms: General Discharge Information Follow-up/Referrals: Ward Kim MD [Physician] - Call for Appointment (severe pancytopenia) Jevon Guadarrama DO [Primary Care Provider] - 1 week Discharge Medications: New azithromycin [Zithromax] 250 mg Tablet 500 mg PO DAILY Qty: 3 0RF amoxicillin-pot clavulanate 875-125 mg tablet 1 tablet PO Q12H Qty: 10 0RF oseltamivir [Tamiflu] 30 mg Capsule 30 mg PO Q12HR Qty: 7 0RF guaifenesin [Mucus Relief ER] 600 mg Tablet Extended Release 12hr 600 mg PO Q12HR Qty: 20 0RF Continued budesonide-formoterol [Breyna] 80-4.5 mcg/actuation HFA aerosol inhaler 2 puff inhalation Q12H Qty: 10.2 0RF loratadine 10 mg Tablet 10 mg PO QHS Qty: 60 0RF mirabegron [Myrbetriq] 50 mg tablet extended release 24 hr 50 mg PO DAILY Qty: 30 0RF Rx Instructions: TAKE ONE TABLET (50 MG) BY MOUTH DAILY AT 9 AM albuterol sulfate 90 mcg/actuation HFA aerosol inhaler See Rx Instructions .ROUTE .COMPLEX Qty: 6.7 5RF Dose Instruction: INHALE 1 PUFF BY MOUTH EVERY 4 HOURS NEEDED Rx Instructions: INHALE 1 PUFF BY MOUTH EVERY 4 HOURS NEEDED levothyroxine 175 mcg tablet See Rx Instructions .ROUTE .COMPLEX Qty: 90 11RF Dose Instruction: TAKE ONE TABLET (175 MCG) BY MOUTH DAILY AT 8 AM Rx Instructions: TAKE ONE TABLET (175 MCG) BY MOUTH DAILY AT 8 AM bupropion HCl 150 mg tablet extended release 24 hr See Rx Instructions .ROUTE .COMPLEX Qty: 90 3RF Dose Instruction: TAKE ONE TABLET BY MOUTH DAILY AT 9 AM EVERY MORNING Rx Instructions: TAKE ONE TABLET BY MOUTH DAILY AT 9 AM EVERY MORNING omeprazole 20 mg capsule,delayed release(DR/EC) See Rx Instructions .ROUTE .COMPLEX Qty: 90 1RF Dose Instruction: TAKE 1 CAPSULE BY MOUTH EVERY DAY Rx Instructions: TAKE 1 CAPSULE BY MOUTH EVERY DAY duloxetine 60 mg capsule,delayed release(DR/EC) See Rx Instructions .ROUTE .COMPLEX Qty: 90 0RF Dose Instruction: TAKE 1 CAPSULE BY MOUTH EVERY DAY Rx Instructions: TAKE 1 CAPSULE BY MOUTH EVERY DAY Other Ambulatory Orders: Complete Blood Count with Diff (Routine) Timeframe: 1 Week Location: Determined by Patient Ordered By: Judy Mary Date of admission: 12/24/24 13:50 Primary Care Provider: Jevon Guadarrama Admitting Provider: Yunior German Attending physician on admission: Judy Mary Condition: Improved Quality VTE Prophylaxis VTE prophylaxis: mechanical ordered Hospitalist MIPS Heart Failure (Exclusion) Patient has history of Heart Transplant or Left Ventricular Assistive Device?: No IF YES, STOP HERE Heart Failure (Qualifier) Patient has current or prior documentation of LVEF less than or equal to 40%, or mod/servere depressed LVSF?: No IF NO, STOP HERE
--- NOTE | 2024-12-26 15:11 | PC.NURSE ---
Pt discharged to friends home. Discharge instructions given to pt and friend. Prescriptions given to pt ,to take them to the pharmacy of her choice. all medications reviewed with pt. Pt instructed to take medications as directed. Pt verbalized understanding of instructions.
[2024-12-26 21:42] LABS: Albumin Level 2.7 g/dL (3.4-5.0)
--- NOTE | 2024-12-27 09:36 | PC.NURSE ---
discharge call back attempted, no answer
--- NOTE | 2024-12-31 09:17 | PC.NURSE ---
discharge call back complete, still having a cough, to see PMD in follow up, no questions regarding dc instructions
== END 2024-12-26 15:00 | disposition home or self-care (01) ==
LOC: CHSED 13:32 → CHS2ND 13:54
PROVIDERS: Nurse Practitioner Family; Admitting Provider Internal Medicine; Emergency Provider Emergency Medicine; PCP Family Medicine; Visit Provider Nurse Practitioner Acute Care
DX: J10.00 Influenza due to other identified influenza virus with unspecified type of pneumonia (principal); J44.0 Chronic obstructive pulmonary disease with (acute) lower respiratory infection; D61.818 Other pancytopenia; E03.9 Hypothyroidism, unspecified; B18.2 Chronic viral hepatitis C; F41.1 Generalized anxiety disorder; F32.9 Major depressive disorder, single episode, unspecified; D72.819 Decreased white blood cell count, unspecified; F17.210 Nicotine dependence, cigarettes, uncomplicated; G47.33 Obstructive sleep apnea (adult) (pediatric); K21.9 Gastro-esophageal reflux disease without esophagitis; I10 Essential (primary) hypertension; M10.9 Gout, unspecified; R42 Dizziness and giddiness; M19.90 Unspecified osteoarthritis, unspecified site; Z91.148 Patient's other noncompliance with medication regimen for other reason; Z20.822 Contact with and (suspected) exposure to COVID-19; Z79.51 Long term (current) use of inhaled steroids; Z79.899 Other long term (current) drug therapy
CPT/HCPCS: 36415; 71046; 80053; 83605; 83735; 83880; 84443; 84484; 85025; 85027; 85055; 87040; 87637; 93005; 94640; 96361; 96365; 96367; 96372; 97110; 97161; 97166; 97530; 97535; 99285; A9270; G0378; J0456; J0696; J2919; J7030; J7120

== ENCOUNTER 2025-04-02 11:04 | Outpatient (CLI) | payer MEDICARE, SELFPAY ==
[2025-04-02 11:23] LABS: Hematocrit 33.9 % (35.0-42.0); Hemoglobin 11.2 g/dL (11.7-13.8); Mean Corpuscular Hemoglobin 31.7 pg (27.0-31.0); Mean Platelet Volume 9.5 fl (9.2-11.8); Platelet Count Result 48 K/mm3 (150-420); Red Blood Count 3.53 M/mm3 (4.20-5.40); Red Cell Distribution Width 14.9 % (11.6-14.4); White Blood Count 3.3 K/mm3 (4.8-10.8)
[2025-04-02 11:28] LABS: Alanine Aminotransferase 33 U/L (6-35); Albumin Level 3.7 g/dL (3.5-5.1); Alkaline Phosphatase 83 U/L (38-126); Anion Gap 5 mmol/L (4-12); Aspartate Amino Transferase 59 U/L (14-36); Bilirubin,Total 3.5 mg/dL (0.2-1.3); Blood Urea Nitrogen 19 mg/dL (7-17); Calcium 8.5 mg/dL (8.4-10.2); Carbon Dioxide 26 mmol/L (22-30); Chloride 110 mmol/L (98-107); Estimated Glomerular Filt Rate > 60; Glucose 132 mg/dL (65-110); Osmolality Calculated 296 mOsm/kg (285-295); Potassium 3.4 mmol/L (3.4-5.0); Sodium 141 mmol/L (137-145); Total Protein 6.8 g/dL (6.3-8.2)
[2025-04-02 11:32] LABS: Band Neutrophils Percent 1 % (0-6); Eosinophils Absolute Manual 0.06 K/mm3 (0.02-0.50); Eosinophils Percent Manual 2 % (1-6); Lymphocytes Absolute Manual 0.92 K/mm3 (1.1-4.5); Lymphocytes Percent Manual 28 % (18-44); Monocytes Absolute Manual 0.09 K/mm3 (0.1-0.90); Monocytes Percent Manual 3 % (3-9); Neutrophils Absolute Manual 2.21 K/mm3 (1.3-6.7); Neutrophils Percent Manual 66 % (46-73); Total Cells Counted 100
[2025-04-02 11:33] LABS: Platelet Estimate Decreased (Adequate)
[2025-04-02 11:34] LABS: Iron 64 ug/dL (37-170)
[2025-04-02 11:44] LABS: Percent Iron Saturation 18 % (20-50)
[2025-04-02 12:34] LABS: Free T4 Free Thyroxine Reflex 0.74 ng/dL (0.78-2.19)
== END 2025-04-02 11:05 | disposition home or self-care (01) ==
LOC: CHSLAB 11:06
PROVIDERS: PCP Family Medicine; Visit Provider Family Medicine
DX: D50.9 Iron deficiency anemia, unspecified (principal); E03.9 Hypothyroidism, unspecified
CPT/HCPCS: 36415; 80053; 82728; 83540; 83550; 84439; 84443; 85025

== ENCOUNTER 2025-04-26 12:14 | Emergency (ER) | payer MEDICARE, SELFPAY ==
--- NOTE | ~2025-04-26 | CT_ITS ---
CLINICAL INDICATION: Weakness, and pancytopenia COMPARISON: Reference is made with a CT examination of the chest dated 05/10/2024. No cross-sectional imaging of the abdomen has been performed at this institution. TECHNIQUE: An enhanced CT of the abdomen and pelvis was performed utilizing multislice spiral technTravelShark ue reconstructed at 5 mm slice thickness. Coronal and sagittal reconstructions were performed. This CT examination was performed utilizing dose reduction techniques. DLP: 394 mGy-cm FINDINGS/OBSERVATIONS: Lung: Left basilar pleural thickening with adjacent compressive atelectasis. The remainder of the bilateral lung bases are clear. The heart is of normal size, without pericardial effusion. Mediastinum: No pathologically enlarged or morphologically suspicious lymph nodes are identified within the medias tinum, bilateral axilla, within the soft tissues of the anterior chest wall. Soft tissues of the chest: Unremarkable. Bones of the chest: No acute fracture. No lytic or blastic lesions are identified. Liver: The liver demonstrates homogeneously decreased attenuation and enhancement (consistent with fatty inf iltration) and is not enlarged measuring 14 cm in longitudinal dimension. Gallbladder and biliary system: The gallbladder is decompressed, limiting its evaluation. Pancreas: The pancreas enhances homogeneously, without ductal dilatation. Spleen: The spleen enhances homogeneously and is massively enlarged measuring 18 cm in longitudinal d imension. Kidneys: The bilateral kidneys enhance symmetrically without hydronephrosis or renal calculi. Adrenal glands: Unremarkable. Gastrointestinal tract: Small hiatal hernia is present. Colonic diverticulosis without surrounding inflammatory change. Appendix: The appendix is not definitively visualized. However, no pericecal inflammatory change is identified suggest the presence of acute appendicitis. Vasculature: Extensive paraesophageal varices. Recanalization of the umbilical vein is also noted, with extensive varices along the anterior abdomin al wall. Splenorenal varices are noted. Inferior epigastric varices are present. The portal vein is patent. Calcified atherosclerotic disease is present. Lymph nodes: Scattered nonpathologically enlarged lymph nodes within the root of the mesentery and deep in the pel vis. Pelvic structures: The bladder is only minimally distended and otherwise unremarkable. The uterus is anteverted and anteflexed containing multiple calcifications suggesting prior fibroid d isease. Body wall and musculoskeletal: Small fat-containing umbilical hernia. Age-appropriate degenerative disease. No lytic or blastic lesions identified. IMPRESSION: Findings consistent with portal hypertension, as detailed above. Reviewed, dictated and finalized at location A.
--- OUTSIDE RECORDS SUMMARY | 2025-04-26 12:16 | XMS_ITS | Clinical Summary ---
Author Organization [facility] Address [facility] [place] [address] Care Team Providers Care Skip Pitman Name Role Phone Jackie Sanches DRUG COUNSELOR Primary Care Provider [phone] Allergies No known active allergies Medications amitriptyline [...] Comments Blood Pressure 117/85 09/09/2022 11:45 AM KETTLEMAN Pulse 59 09/09/2022 11:45 AM KETTLEMAN Temperature 35.8 C (96.5 F) 09/09/2022 11:45 AM KETTLEMAN Respiratory Rate 20 09/09/2022 11:45 AM KETTLEMAN Oxygen Saturation 100% 09/09/2022 11:45 AM KETTLEMAN Inhaled Oxygen Concentration - - Weight 86.2 kg (190 lb) 10/05/2022 2:38 PM KETTLEMAN Height 154.9 cm (5' 1) 10/05/2022 2:38 PM KETTLEMAN Body Mass Index 35.9 10/05/2022 2:38 PM KETTLEMAN Plan of Treatment Health Maintenance Due Date Last Done Comments Colorectal Cancer Screening Colonoscopy (10 Years) 1958 Hepatitis C 1976 DTaP, Tdap and Td Vaccines ( 1 - Tdap) 1977 Pneumococcal Vaccine: 50+ Years (1 of 2 - PCV) 1977 Mammogram Screening 1998 Zoster Vaccines (2 of 2) 10/10/2020 08/15/2020 Dexa Scan (General) 2023 COVID-19 Vaccine (4 - 2023-2 5 season) 2024 10/05/2021, 04/04/2021, 03/14/2021 RSV Immunization or 60+ Years (1 - [...] complete this topic Insurance [employer] Care Teams Skip Pitman Relationship Specialty Start Date End Date Jackie Sanches FNP [address] [place] [address] PCP - General NURSE PRACTITIONER 03/09/22
[2025-04-26 12:21] VITALS: BP 144/85; PULSE 81; RESP 16; TEMP 36.6; O2SAT 98
--- NOTE | 2025-04-26 12:23 | ECG_ITS ---
Test Date: 2025-04-26 12:35:36 Measurements Intervals [place] Rate: 91 P: 71 ND: 154 QRS: 54 QRSD: 83 T: 71 QT: 364 QTc: 448 Interpretive Statements SINUS RHYTHM WITH OCCASIONAL VENTRICULAR PREMATURE COMPLEXES Compared to ECG 12/24/2024 12:48:20 Ventricular premature complex(es) now present Electronically Signed On 04-29-2025 22:35:58 CDT by Allie Dillard M.D.
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
[2025-04-26 12:43] LABS: Hematocrit 33.0 % (35.0-42.0); Hemoglobin 11.1 g/dL (11.7-13.8); Immature Platelet Fraction Pct 0.9 % (1.0-7.0); Mean Corpuscular HGB Conc 33.6 g/dL (32-36); Mean Corpuscular Hemoglobin 32.3 pg (27.0-31.0); Mean Corpuscular Volume 95.9 fL (78.0-102.0); Platelet Count Result 54 K/mm3 (150-420); Red Blood Count 3.44 M/mm3 (4.20-5.40); White Blood Count 3.0 K/mm3 (4.8-10.8)
[2025-04-26 12:55] LABS: Add Urine Microscopic? YES; Appearance Urine Clear (Clear); Glucose Urine UA Negative (Negative); Leukocyte Esterase Ur Negative LEU/UL (Negative); Nitrate Urine Positive (Negative); Specific Grav Ur 1.015 (1.010-1.020)
--- OUTSIDE RECORDS SUMMARY | 2025-04-26 12:55 | XMS_ITS | Clinical Summary ---
Author Organization [facility] Address [facility] [place] [address] Care Team Providers Care Tobacco Sprayer Name Role Phone Jackie Sanches PLUMBER'S HELPER Primary Care Provider [phone] Allergies No known active allergies Medications amitriptyline [...] Comments Blood Pressure 117/85 09/09/2022 11:45 AM ENTRY LEVEL STAFF ACCOUNTANT Pulse 59 09/09/2022 11:45 AM ENTRY LEVEL STAFF ACCOUNTANT Temperature 35.8 C (96.5 F) 09/09/2022 11:45 AM ENTRY LEVEL STAFF ACCOUNTANT Respiratory Rate 20 09/09/2022 11:45 AM ENTRY LEVEL STAFF ACCOUNTANT Oxygen Saturation 100% 09/09/2022 11:45 AM ENTRY LEVEL STAFF ACCOUNTANT Inhaled Oxygen Concentration - - Weight 86.2 kg (190 lb) 10/05/2022 2:38 PM ENTRY LEVEL STAFF ACCOUNTANT Height 154.9 cm (5' 1) 10/05/2022 2:38 PM ENTRY LEVEL STAFF ACCOUNTANT Body Mass Index 35.9 10/05/2022 2:38 PM ENTRY LEVEL STAFF ACCOUNTANT Plan of Treatment Health Maintenance Due Date [...] complete this topic Insurance [employer] Care Teams Tobacco Sprayer Relationship Specialty Start Date End Date Jackie Sanches FNP [address] [place] [address] PCP - General NURSE PRACTITIONER 03/09/22
[2025-04-26] MEDS: SODIUM CHLORIDE 0.9% IV 1,000 ML 999 ML IV CONT (12:58)
[2025-04-26 13:04] LABS: Alanine Aminotransferase 38 U/L (6-35); Albumin Level 3.4 g/dL (3.5-5.1); Alkaline Phosphatase 103 U/L (38-126); Anion Gap 4 mmol/L (4-12); Aspartate Amino Transferase 53 U/L (14-36); Bilirubin,Total 3.5 mg/dL (0.2-1.3); Blood Urea Nitrogen 15 mg/dL (7-17); CRP < 0.5 mg/dL (<1.0); Calcium 8.2 mg/dL (8.4-10.2); Carbon Dioxide 25 mmol/L (22-30); Chloride 110 mmol/L (98-107); Estimated CRCL calculation 57 ml/min; Estimated Glomerular Filt Rate > 60; Glucose 128 mg/dL (65-110); Magnesium 1.8 mg/dL (1.6-2.3); Osmolality Calculated 290 mOsm/kg (285-295); Potassium 3.8 mmol/L (3.4-5.0); Sodium 139 mmol/L (137-145); Total Protein 6.2 g/dL (6.3-8.2)
[2025-04-26 13:09] LABS: Eosinophils Absolute Manual 0.06 K/mm3 (0.02-0.50); Eosinophils Percent Manual 2 % (1-6); Lymphocytes Absolute Manual 0.87 K/mm3 (1.1-4.5); Lymphocytes Percent Manual 29 % (18-44); Monocytes Absolute Manual 0.33 K/mm3 (0.1-0.90); Monocytes Percent Manual 11 % (3-9); Neutrophils Absolute Manual 1.74 K/mm3 (1.3-6.7); Neutrophils Percent Manual 58 % (46-73); Schistocytes None Seen; Total Cells Counted 100
[2025-04-26 13:13] LABS: Troponin I 0.012 ng/mL (0.000-0.034)
[2025-04-26 13:15] LABS: Cannabinoid Screen Urine Positive (Negative)
[2025-04-26 13:41] LABS: NT Pro B Type Natriuretic Pept 218 pg/mL (19.9-100)
[2025-04-26 13:42] LABS: Thyroid Stimulating Hormone 6.550 uIU/mL (0.465-4.680)
[2025-04-26 14:35] VITALS: BP 137/80; PULSE 85; RESP 20; TEMP 37; O2SAT 99
--- NOTE | 2025-04-26 14:51 | PC.NURSE ---
call placed to sister, states doesnt have money or gas to brass pickler pt. explained pt discharged and departed ambulatory. sister states she only lives a few blocks from hospital. food /drinks given to pt per dr bangura request. pt states has not eaten in past couple days .
--- NOTE | 2025-04-28 13:43 | PC.NURSE ---
PRELIMINARY BLOOD CULTURE REPORT; GRAM NEGATIVE BACILLI ISOLATED, PATIENT DISCHARGED ON BACTRIM DS. WILL WAIT FINAL CULTURE AND SENSITIVITY PER DR JORDAN
--- NOTE | 2025-04-29 16:20 | PC.NURSE ---
FINAL RESULT CLEAN CATCH URINE BY DR SULLIVAN, CONTINUE WITH PLAN OF CARE.
== END 2025-04-26 14:39 | disposition home or self-care (01) ==
PROVIDERS: Emergency Provider Family Medicine; PCP Family Medicine
DX: N39.0 Urinary tract infection, site not specified (principal); D61.818 Other pancytopenia; E86.0 Dehydration; I11.0 Hypertensive heart disease with heart failure; I50.9 Heart failure, unspecified; J44.9 Chronic obstructive pulmonary disease, unspecified; F17.210 Nicotine dependence, cigarettes, uncomplicated; F41.9 Anxiety disorder, unspecified
CPT/HCPCS: 36415; 71260; 74177; 80053; 80307; 81001; 83735; 83880; 84443; 84484; 85025; 85055; 86140; 87077; 87086; 87088; 87186; 93005; 96361; 96365; 99284; J0696; J7030; Q9967

== ENCOUNTER 2025-06-08 10:59 | Observation (INO) | payer MEDICARE, SELFPAY ==
[2025-06-08] VITALS (17 sets, daily range): BP systolic 99–127; BP diastolic 56–69; PULSE 67–74; RESP 16–20; TEMP 35.8–36.7; O2SAT 96–100; BMI 25.3
--- NOTE | ~2025-06-08 | CT_ITS ---
EXAMINATION: CT brain wo con DATE: 06/08/2025 11:43 INDICATION: Altered mental status and dizziness TECHNIQUE: Computed tomography (CT) of the head was performed without intravenous contrast. Sagittal and coronal reconstructions were performed. The mA was adjusted according to patient size. Iterative reconstruction technique was employed. The dose-length product was 605.33 mGy-cm. COMPARISON: head CT dated 08/06/2023 FINDINGS: No acute intracranial hemorrhage, acute infarction or abnormal extra axial fluid collection. Interval progression in now mild to moderate scattered white matter hypoattenuation consistent with chronic s mall vessel ischemic disease. Symmetric prominence of the sulci consistent with mild age-appropriate diffuse cerebral volume loss. Ventricles are normal and symmetric. No mass/mass effect. The right ma stoid is hypopneumatized. The orbits, paranasal sinuses and left mastoid air cells are normal. IMPRESSION: 1. No acute intracranial process. 2. Progression of age-related changes with mild diffuse volume loss and increased now mild to moderat e scattered mesenteric white matter hypoattenuation consistent with chronic small vessel ischemic dis ease. Reviewed, dictated and finalized at location A. IMPRESSION: 1. No acute intracranial process. 2. Progression of age-related changes with mild diffuse volume loss and increas ed now mild to moderate scattered mesenteric white matter hypoattenuation consi stent with chronic small vessel ischemic disease.
--- OUTSIDE RECORDS SUMMARY | 2025-06-08 11:01 | XMS_ITS | Clinical Summary ---
Author Organization [facility] Address [facility] [place] [address] Care Team Providers Care Veterans' Counselor Name Role Phone Jackie Sanches PRIMARY HEALTH CARE NURSE Primary Care Provider [phone] Allergies No known active allergies Medications amitriptyline [...] Comments Blood Pressure 117/85 09/09/2022 11:45 AM FREELANCE WRITER Pulse 59 09/09/2022 11:45 AM FREELANCE WRITER Temperature 35.8 C (96.5 F) 09/09/2022 11:45 AM FREELANCE WRITER Respiratory Rate 20 09/09/2022 11:45 AM FREELANCE WRITER Oxygen Saturation 100% 09/09/2022 11:45 AM FREELANCE WRITER Inhaled Oxygen Concentration - - Weight 86.2 kg (190 lb) 10/05/2022 2:38 PM FREELANCE WRITER Height 154.9 cm (5' 1) 10/05/2022 2:38 PM FREELANCE WRITER Body Mass Index 35.9 10/05/2022 2:38 PM FREELANCE WRITER Plan of Treatment Health Maintenance Due Date [...] complete this topic Insurance [employer] Care Teams Veterans' Counselor Relationship Specialty Start Date End Date Jackie Sanches FNP [address] [place] [address] PCP - General NURSE PRACTITIONER 03/09/22
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
--- NOTE | 2025-06-08 11:10 | ECG_ITS ---
Test Date: 2025-06-08 11:44:26 Measurements Intervals [place] Rate: 67 P: 31 MO: 195 QRS: 33 QRSD: 69 T: 31 QT: 407 QTc: 430 Interpretive Statements SINUS RHYTHM POSSIBLE LEFT ATRIAL ENLARGEMENT BASELINE ARTIFACT- I, II, III, AVR, AVL, AVF BORDERLINE ECG Compared to ECG 04/26/2025 12:35:36 Ventricular premature complex(es) no longer present Electronically Signed On 06-08-2025 15:45:13 CDT by Óscar Garcia D.O.
[2025-06-08] MEDS: SODIUM CHLORIDE 0.9% IV 1,000 ML 999 ML IV CONT (11:29)
[2025-06-08 11:30] LABS: Hematocrit 28.8 % (35.0-42.0); Hemoglobin 9.6 g/dL (11.7-13.8); Immature Platelet Fraction Pct 3.3 % (1.0-7.0); Mean Corpuscular HGB Conc 33.3 g/dL (32-36); Mean Corpuscular Hemoglobin 30.3 pg (27.0-31.0); Mean Corpuscular Volume 90.9 fL (78.0-102.0); Platelet Count Result 50 K/mm3 (150-420); Red Blood Count 3.17 M/mm3 (4.20-5.40); White Blood Count 3.2 K/mm3 (4.8-10.8)
[2025-06-08 11:46] LABS: Alanine Aminotransferase 34 U/L (6-35); Albumin Level 2.7 g/dL (3.5-5.1); Alkaline Phosphatase 71 U/L (38-126); Anion Gap 3 mmol/L (4-12); Aspartate Amino Transferase 57 U/L (14-36); Bilirubin,Total 2.3 mg/dL (0.2-1.3); Blood Urea Nitrogen 12 mg/dL (7-17); Calcium 8.3 mg/dL (8.4-10.2); Carbon Dioxide 27 mmol/L (22-30); Chloride 103 mmol/L (98-107); Estimated CRCL calculation 57 ml/min; Estimated Glomerular Filt Rate > 60; Glucose 143 mg/dL (65-110); Magnesium 1.8 mg/dL (1.6-2.3); Osmolality Calculated 277 mOsm/kg (285-295); Potassium 3.0 mmol/L (3.4-5.0); Sodium 133 mmol/L (137-145); Total Protein 6.5 g/dL (6.3-8.2)
[2025-06-08 11:57] LABS: Band Neutrophils Percent 1 % (0-6); Basophils Absolute Manual 0.00 K/mm3 (0-0.1); Basophils Percent Manual 0 % (0-1); Eosinophils Absolute Manual 0.09 K/mm3 (0.02-0.50); Eosinophils Percent Manual 3 % (1-6); Lymphocytes Absolute Manual 0.57 K/mm3 (1.1-4.5); Lymphocytes Percent Manual 18 % (18-44); Monocytes Absolute Manual 0.35 K/mm3 (0.1-0.90); Monocytes Percent Manual 11 % (3-9); Neutrophils Absolute Manual 2.17 K/mm3 (1.3-6.7); Neutrophils Percent Manual 67 % (46-73); Total Cells Counted 100
[2025-06-08 11:58] LABS: Troponin I < 0.012 ng/mL (0.000-0.034)
--- OUTSIDE RECORDS SUMMARY | 2025-06-08 11:58 | XMS_ITS | Clinical Summary ---
Author Organization [facility] Address [facility] [place] [address] Care Team Providers Care Radiographer Name Role Phone Jackie Sanches MEDICAL PLANNER Primary Care Provider [phone] Allergies No known active allergies Medications amitriptyline [...] Comments Blood Pressure 117/85 09/09/2022 11:45 AM HOSTESS HOST Pulse 59 09/09/2022 11:45 AM HOSTESS HOST Temperature 35.8 C (96.5 F) 09/09/2022 11:45 AM HOSTESS HOST Respiratory Rate 20 09/09/2022 11:45 AM HOSTESS HOST Oxygen Saturation 100% 09/09/2022 11:45 AM HOSTESS HOST Inhaled Oxygen Concentration - - Weight 86.2 kg (190 lb) 10/05/2022 2:38 PM HOSTESS HOST Height 154.9 cm (5' 1) 10/05/2022 2:38 PM HOSTESS HOST Body Mass Index 35.9 10/05/2022 2:38 PM HOSTESS HOST Plan of Treatment Health Maintenance Due Date [...] complete this topic Insurance [employer] Care Teams Radiographer Relationship Specialty Start Date End Date Jackie Sanches FNP [address] [place] [address] PCP - General NURSE PRACTITIONER 03/09/22
--- NOTE | 2025-06-08 12:03 | PC.NURSE ---
pt requested help for a skilled nursing [facility] contacted and they are talking with pt now
[2025-06-08 12:04] LABS: Add Urine Microscopic? YES; Appearance Urine Turbid (Clear); Glucose Urine UA Negative (Negative); Leukocyte Esterase Ur Trace LEU/UL (Negative); Nitrate Urine Positive (Negative); Specific Grav Ur 1.020 (1.010-1.020)
[2025-06-08] MEDS: POTASSIUM CHLORIDE 20 MEQ ER TABLET 40 MEQ PO (12:12)
[2025-06-08 12:16] LABS: Thyroid Stimulating Hormone 0.033 uIU/mL (0.465-4.680)
[2025-06-08 12:21] LABS: Cannabinoid Screen Urine Negative (Negative)
[2025-06-08] MEDS: cefTRIAXone 2 GM in SODIUM CHLORIDE 0.9% IV 100 ML 200 ML IVPB (12:39)
--- NOTE | 2025-06-08 13:32 | PC.NURSE ---
pt requested senior care assistance pt establised with [facility] in [place] [phone] and help line for senior care [phone] no assistance this weekend available waiting for labs to come back
--- NOTE | 2025-06-08 14:10 | PC.NURSE ---
1410 Patient arrived to unit in w/ and was able to transfer stand by assist from w/c to bed. Patient admitted to room 210 for observation. Patient educated on use of call light, bed controls, infection control and general hospital practices. Patient's bag searched by nurse due to urine positive for amphetamines and patient stated that she had not used any drugs that were not prescribed to her. Nurse found several bottles of medication in bag and removed them from patient's room. Medications placed in bag with patient label in med room. At least one of the medications did not belong to patient and labels on bottles were damaged and unable to be read. Items placed in patient's room to assist patient with shower due to patient being homeless. All hygiene supplies provided. Patient given blue admission packet.
[2025-06-08] MEDS: LACTATED RINGERS 1,000 ML 100 ML IV CONT (14:47)
--- NOTE | 2025-06-08 16:54 | PC.NURSE ---
Patient showered with stand by assist.
[2025-06-09] VITALS: BP 92/52; PULSE 69; RESP 16; TEMP 37.1; O2SAT 100
--- NOTE | 2025-06-09 | CONSULT_PTH ---
PATIENT: Meli Wagner LOC: [id number] U#:[id number] AGE/SX: 64/F ROOM: 210CHS RE06/08/[address]: Mg German MD : 1960 BED: 1 DIS: 06/10/2025 SPEC #: [id number] RECD: 06/09/25 06:36 STATUS: BIJAN RECrow #: [id number] YOSEF: 06/09/25 00:[address]: Yunior German DEPT: [facility] Consult RECD BY: Beena Medeiros MLT, ([facility]) ENTERED: 06/09/25 06:36 SP TYPE: Consult OTHR DR: DO Desiree Armijo APRN Tissues: A - Peripheral Smear Procedures: Hematology Consult
[2025-06-09] MEDS: LACTATED RINGERS 1,000 ML 100 ML IV CONT ×3 (00:46→20:32)
[2025-06-09 06:04] LABS: Hematocrit 29.9 % (35.0-42.0); Hemoglobin 9.6 g/dL (11.7-13.8); Immature Platelet Fraction Pct 2.4 % (1.0-7.0); Mean Corpuscular HGB Conc 32.1 g/dL (32-36); Mean Corpuscular Hemoglobin 29.9 pg (27.0-31.0); Mean Corpuscular Volume 93.1 fL (78.0-102.0); Platelet Count Result 56 K/mm3 (150-420); Red Blood Count 3.21 M/mm3 (4.20-5.40); White Blood Count 2.8 K/mm3 (4.8-10.8)
[2025-06-09 06:19] LABS: Alanine Aminotransferase 31 U/L (6-35); Albumin Level 2.5 g/dL (3.5-5.1); Alkaline Phosphatase 85 U/L (38-126); Anion Gap 5 mmol/L (4-12); Aspartate Amino Transferase 55 U/L (14-36); Bilirubin,Total 1.7 mg/dL (0.2-1.3); Blood Urea Nitrogen 11 mg/dL (7-17); Calcium 8.0 mg/dL (8.4-10.2); Carbon Dioxide 24 mmol/L (22-30); Chloride 105 mmol/L (98-107); Estimated CRCL calculation 58 ml/min; Estimated Glomerular Filt Rate > 60; Glucose 109 mg/dL (65-110); Magnesium 1.6 mg/dL (1.6-2.3); Osmolality Calculated 278 mOsm/kg (285-295); Potassium 4.0 mmol/L (3.4-5.0); Sodium 134 mmol/L (137-145); Total Protein 6.3 g/dL (6.3-8.2)
[2025-06-09 06:35] LABS: Band Neutrophils Percent 0 % (0-6); Basophils Absolute Manual 0.00 K/mm3 (0-0.1); Basophils Percent Manual 0 % (0-1); Eosinophils Absolute Manual 0.00 K/mm3 (0.02-0.50); Eosinophils Percent Manual 0 % (1-6); Lymphocytes Absolute Manual 0.70 K/mm3 (1.1-4.5); Lymphocytes Percent Manual 25 % (18-44); Monocytes Absolute Manual 0.11 K/mm3 (0.1-0.90); Monocytes Percent Manual 4 % (3-9); Neutrophils Absolute Manual 1.98 K/mm3 (1.3-6.7); Neutrophils Percent Manual 71 % (46-73); Total Cells Counted 100
[2025-06-09 08:00] VITALS: BP 99/52; PULSE 70; RESP 16; TEMP 36.2; O2SAT 96
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
[2025-06-09] MEDS: LEVOTHYROXINE SODIUM 75 MCG TABLET PO (09:43)
[2025-06-09] MEDS: LEVOTHYROXINE SODIUM 100 MCG TABLET PO (09:43)
[2025-06-09] MEDS: cefTRIAXone 1 GM in SODIUM CHLORIDE 0.9% IV 50 ML 100 ML IVPB (11:54)
--- NOTE | 2025-06-09 14:07 | PC.NURSE ---
Patient sluggish and grouchy today. Will continue to monitor.
[2025-06-09 16:00] VITALS: BP 103/57; PULSE 71; RESP 16; TEMP 36.5; O2SAT 98
[2025-06-09 20:00] VITALS: PULSE 71; RESP 16; O2SAT 98
[2025-06-10] VITALS: BP 101/56; PULSE 67; RESP 18; TEMP 36.8; O2SAT 98
[2025-06-10] MEDS: ONDANSETRON INJ 4 MG/2 ML VIAL IV PUSH (02:14)
[2025-06-10] MEDS: LEVOTHYROXINE SODIUM 75 MCG TABLET PO (06:12)
[2025-06-10] MEDS: LEVOTHYROXINE SODIUM 100 MCG TABLET PO (06:12)
[2025-06-10 06:14] LABS: Hematocrit 30.6 % (35.0-42.0); Hemoglobin 9.8 g/dL (11.7-13.8); Immature Platelet Fraction Pct 1.8 % (1.0-7.0); Mean Corpuscular HGB Conc 32.0 g/dL (32-36); Mean Corpuscular Hemoglobin 30.2 pg (27.0-31.0); Mean Corpuscular Volume 94.2 fL (78.0-102.0); Platelet Count Result 57 K/mm3 (150-420); Red Blood Count 3.25 M/mm3 (4.20-5.40); White Blood Count 2.2 K/mm3 (4.8-10.8)
[2025-06-10 06:17] LABS: Alanine Aminotransferase 29 U/L (6-35); Albumin Level 2.4 g/dL (3.5-5.1); Alkaline Phosphatase 116 U/L (38-126); Anion Gap 4 mmol/L (4-12); Aspartate Amino Transferase 49 U/L (14-36); Bilirubin,Total 1.4 mg/dL (0.2-1.3); Blood Urea Nitrogen 9 mg/dL (7-17); Calcium 8.2 mg/dL (8.4-10.2); Carbon Dioxide 26 mmol/L (22-30); Chloride 108 mmol/L (98-107); Estimated CRCL calculation 65 ml/min; Estimated Glomerular Filt Rate > 60; Glucose 112 mg/dL (65-110); Magnesium 1.7 mg/dL (1.6-2.3); Osmolality Calculated 285 mOsm/kg (285-295); Potassium 4.0 mmol/L (3.4-5.0); Sodium 138 mmol/L (137-145); Total Protein 6.4 g/dL (6.3-8.2)
[2025-06-10] MEDS: LACTATED RINGERS 1,000 ML 100 ML IV CONT (06:27)
[2025-06-10 06:33] LABS: Total Cells Counted 100
[2025-06-10 06:34] LABS: Band Neutrophils Percent 1 % (0-6); Eosinophils Absolute Manual 0.15 K/mm3 (0.02-0.50); Eosinophils Percent Manual 7 % (1-6); Lymphocytes Absolute Manual 0.50 K/mm3 (1.1-4.5); Lymphocytes Percent Manual 23 % (18-44); Monocytes Absolute Manual 0.15 K/mm3 (0.1-0.90); Monocytes Percent Manual 7 % (3-9); Neutrophils Absolute Manual 1.38 K/mm3 (1.3-6.7); Neutrophils Percent Manual 62 % (46-73)
[2025-06-10 08:00] VITALS: BP 90/76; PULSE 90; RESP 18; TEMP 36.2; O2SAT 95
--- NOTE | 2025-06-10 09:20 | PC.NURSE ---
Consent for Albumin obtained, states just wants to feel better.
[2025-06-10] MEDS: ALBUMIN HUMAN 25% 25 GM/100 ML 100 ML IVPB (09:31)
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
[2025-06-10] MEDS: GENTAMICIN SULFATE INJ 300 MG in DEXTROSE 5% 100 ML 100 MG IVPB (11:02)
--- NOTE | 2025-06-10 13:38 | PC.NURSE ---
patient showered and dressed self, Case management made arrangements for pickling drum operator at 3pm to go to [address] for night, michel funds for dinner, to make arrangements for transport to housing tomorrow once she arrives at [facility] for night.
--- NOTE | 2025-06-10 15:41 | PC.NURSE ---
Discharge completed, reviewed options for home, to go to hotel for night, funds for food given, number for transit reviewed, alert and oriented x4 verbalized understanding, copies of transportation, homeless shelters given to patient.
--- NOTE | 2025-06-14 13:28 | PC.NURSE ---
Attempted discharge call back, no number listed.
== END 2025-06-10 15:00 | disposition home or self-care (01) ==
LOC: CHSED 13:25 → CHS2ND 13:31
PROVIDERS: Nurse Practitioner Family; Admitting Provider Internal Medicine; Emergency Provider Family Medicine; PCP Family Medicine; Visit Provider Internal Medicine
DX: N39.0 Urinary tract infection, site not specified (principal); E86.0 Dehydration; B18.2 Chronic viral hepatitis C; D69.6 Thrombocytopenia, unspecified; E87.6 Hypokalemia; R42 Dizziness and giddiness; G47.33 Obstructive sleep apnea (adult) (pediatric); I50.9 Heart failure, unspecified; J44.9 Chronic obstructive pulmonary disease, unspecified; I11.0 Hypertensive heart disease with heart failure; E03.9 Hypothyroidism, unspecified; M10.9 Gout, unspecified; Z59.00 Homelessness unspecified; F32.A Depression, unspecified; Z87.891 Personal history of nicotine dependence; D64.9 Anemia, unspecified; D72.819 Decreased white blood cell count, unspecified; Z91.148 Patient's other noncompliance with medication regimen for other reason; F15.20 Other stimulant dependence, uncomplicated
CPT/HCPCS: 36415; 70450; 80053; 80307; 81001; 82077; 83735; 84443; 84484; 85025; 85055; 87086; 93005; 96361; 96365; 96366; 96367; 96375; 97161; 97165; 99285; A9270; G0378; J0696; J1580; J2405; J7030; J7120; P9047